=== PATIENT | male | born 1965 | race Caucasian/White ===

== ENCOUNTER 2016-05-09 17:27 | Emergency (ER) | payer BC ==
[~2016-05-09] VITALS: Ht 182.9 cm; Wt 138.5 kg
[~2016-05-09 17:27] MED LIST: CETI10TA84 PO; INDO-24 PO; LISI40TA PO; PRLSR20 PO
[2016-05-09 17:53] VITALS: TEMP 36.7; Ht 182.9 cm; Wt 138.5 kg
--- NOTE | 2016-05-09 18:04 | EMERGENCY ROOM VISIT NOTE ---
History First contact with patient: 17:56 Chief Complaint: KNEEPAIN Stated Complaint: SWELLING TO RT KNEE History of Present Illness The patient is a 50 year old male who presents to the Emergency Room with complaints of "swelling to right knee". The patient states that on Friday evening he was on the sidewalk in [place], and accidentally tripped landing on both of his knees. He also scraped his left hand. He notes that since then the right knee has persisted with swelling and pain. He is taken Tylenol and indomethacin with some relief. He feels the pain is quite low at this time but is concerned secondary to the swelling. He has tried ice but continues to swell. He denies any loss of consciousness, striking his head, fevers, chills. He believes his tetanus up-to-date. He does not want any tetanus update at this time. Review of Systems A complete 6-point Review of Systems was discussed with the patient, with pertinent positives and negatives listed in the History of Present Illness. All remaining Review of Systems questions can be considered negative unless otherwise specified. Past Medical/Surgical History High blood pressure, ulcers. Family History Diabetes, high blood pressure, cancer, kidney disease or stones. Social History Smoking Status: Never Smoker Social History: Patient is currently employed, he denies tobacco use and admits to alcohol use. Current/Historical Medications Scheduled Indomethacin (Indocin), 50 MG PO TID Lisinopril (Zestril), 40 MG PO DAILY Omeprazole (Prilosec), 20 MG PO DAILY Allergies Coded Allergies: Penicillins (Unverified Allergy, Unknown, UNKNOWN, 05/09/16) Uncoded Allergies: ENVIROMENT (Allergy, Intermediate, congestion, 02/17/14) Physical Exam Vital Signs Date Time Temp Pulse Resp B/P Pulse Ox O2 Delivery O2 Flow Rate FiO2 05/09/16 19:35 88 22 148/104 95 05/09/16 17:53 36.7 100 18 126/82 96 Room Air Physical Exam VITAL SIGNS - Vital signs and nursing notes were reviewed. Patient is afebrile , normotensive, saturating well on room air 96%. GENERAL -50-year-old male appearing his stated age who is in no acute distress. Communicates well with provider and answers questions appropriately. SKIN - Without rashes. No petechial rashes. There are well healing scratches on the left dorsal hand. No evidence of infection. EXTREMITIES - No clubbing or peripheral cyanosis. No pretibial edema present. Vascularly intact in the right lower extremity. There is tenderness to palpation overlying the anterior knee. No appreciable laxity. +5/5 strength noted in UE/LE bilaterally. NEUROLOGIC - Sensory intact to light touch throughout. Medical Decision & Procedures ER Provider Diagnostic Interpretation: RIGHT KNEE 3 VIEWS CLINICAL HISTORY: Right knee pain status post trauma COMPARISON: None. DISCUSSION: No acute fractures are visualized. There is a suprapatellar joint effusion. There is a tiny superior dorsal patellar spur. There is no significant joint space narrowing. IMPRESSION: 1. Moderate suprapatellar joint effusion 2. No acute fractures identified on conventional radiographic imaging Electronically signed by: Jose Carlos Aguirre M.D. 05/09/2016 6:41 PM Dictated Date/Time: 05/09/2016 6:40 PM Medical Decision Patient was seen and evaluated as above. After obtaining a thorough history and physical examination radiographs were obtained of the right knee. Results as above. The patient appears to have a traumatic moderate suprapatellar knee effusion. The knee was not erythematous, or warm to the touch. I suspect this is likely secondary to ligamentous injury. The patient is to be fitted with a knee immobilizer and crutches, however he did decline these noting that he is off work and will use his crutches at home and will rest the leg until he follows up. He is to follow up with his family doctor and orthopedic group regarding today's visit. He was educated upon management of the knee. He was educated upon worrisome symptoms in which to return, had questions answered prior to discharge and was discharged home in good condition. In the evaluation and treatment of this patient, the following differential diagnoses were considered: Patellar Fracture, Tibial Plateau Fracture, Distal Femur Fracture, ACL Injury, PCL Injury, Collateral Ligament Injury, Pes Anserine Bursitis, Maisonneuve Fracture. Impression Primary Impression: Knee pain Departure Information Dispostion Home / Self-Care Condition GOOD Referrals No Doctor, Assigned (PCP) Davie Zimmer M.D. Patient Instructions My [facility] Additional Instructions You have been treated in the Emergency Department for Knee Pain. For pain control, you can use the following [id number] medicines (if >12 yo): - Regular strength (325mg/tab) Tylenol (acetaminophen) 2 tabs every 4-6 hours as needed. Do not exceed 12 tablets in a 24 hour period. Avoid taking more than 4 grams (4000 mg) of Tylenol per day. This includes any other sources of acetaminophen you may take on a regular basis. - Regular strength (200 mg/tab) Advil (ibuprofen) 1-2 tabs every 4-6 hours as needed. Do not exceed a dose of 3200 mg per day. (DO NOT TAKE WITH OTHER NSAIDS LIKE MELOXICAM, INDOMETHACIN, ETC. If this is a recent injury (<24 hrs), ice can be applied to the area of pain for the first 3 days to help decrease pain and inflammation. Ice massages can be performed by freezing water in a paper cup, peeling back the cup to expose the ice and then massaging over the affected area. You have been provided the number for an Orthopaedic Surgeon. You should call this number as soon as possible to establish a follow-up visit from today's Emergency Department visit. Keep the knee brace in place until cleared by Orthopedics. Use the crutches you have been provided to keep ALL weight off of the knee until weight bearing is tolerable. Return to the Emergency Department if your current symptoms worsen despite treatment course outlined above. Please return to the emergency department with any new/concerning symptoms. Problem Qualifiers Primary Impression: Knee pain Laterality: right Chronicity: acute Qualified Codes: M25.561 - Pain in right knee
--- NOTE | 2016-05-09 18:42 | DIAGNOSTIC IMAGING REPORT ---
RIGHT KNEE 3 VIEWS CLINICAL HISTORY: Right knee pain status post trauma COMPARISON: None. DISCUSSION: No acute fractures are visualized. There is a suprapatellar joint effusion. There is a tiny superior dorsal patellar spur. There is no significant joint space narrowing. IMPRESSION: 1. Moderate suprapatellar joint effusion 2. No acute fractures identified on conventional radiographic imaging Electronically signed by: Jose Carlos Aguirre M.D. 05/09/2016 6:41 PM Dictated Date/Time: 05/09/2016 6:40 PM
[2016-05-09 19:35] VITALS: BP 148/104; PULSE 88; O2SAT 95
== END 2016-05-09 19:35 | disposition home or self-care (01) ==
LOC: C.EDB 17:30 → C.EDD 19:35
DX: M25.561 Pain in right knee (principal); M25.569 Pain in unspecified knee; W10.1XXA Fall (on)(from) sidewalk curb, initial encounter; I10 Essential (primary) hypertension; Z83.3 Family history of diabetes mellitus; Z82.49 Family history of ischemic heart disease and other diseases of the circulatory system

== ENCOUNTER → 2016-05-13 | Outpatient (CLI) | payer BC ==
[~2016-05-13] MED LIST changes: -CETI10TA84 PO
[2016-05-13 18:51] LABS: BLOOD UREA NITROGEN 11 mg/dl (7-18); BUN/CREATININE RATIO 10.5 (10-20); CARBON DIOXIDE 28 mmol/L (21-32); CHLORIDE 100 mmol/L (98-107); CHOLESTEROL 187 mg/dl (0-200); GLUCOSE 104 mg/dl (70-99); POTASSIUM 4.6 mmol/L (3.5-5.1); SODIUM 136 mmol/L (136-145); TRIGLYCERIDES 242 mg/dl (0-150); VERY LOW DENSITY LIPOPROT CALC 48 mg/dl
[2016-05-13 18:54] LABS: CHOLESTEROL/HDL RATIO 4.8; HDL CHOLESTEROL 39 mg/dl; LDL CHOLESTEROL CALCULATED 100 mg/dl
[2016-05-14 06:01] LABS: ESTIMATED AVERAGE GLUCOSE 123 mg/dl; HA1C FLAG Normal (Normal)
== END | disposition home or self-care (01) ==
LOC: C.LABBFT 13:59
PROVIDERS: ATTEND Nurse Practitioner
DX: E78.00 Pure hypercholesterolemia, unspecified (principal); R73.01 Impaired fasting glucose; I10 Essential (primary) hypertension

== ENCOUNTER → 2016-05-13 | Outpatient (CLI) | payer BC ==
--- NOTE | 2016-05-13 15:14 | DIAGNOSTIC IMAGING REPORT ---
LEFT CLAVICLE CLINICAL HISTORY: R22.1 Neck [id number] trauma. Pain. COMPARISON: None. DISCUSSION: Deformity midshaft left clavicle the bulk of which appears to be secondary to old trauma. Subtle linear lucency traversing the mid clavicle which may indicate hepatomegaly injury moderate degenerative change left acromioclavicular joint. There is no evidence for soft tissue swelling. IMPRESSION: Probable nondisplaced fracture of a previously healed fracture midshaft left clavicle Electronically signed by: Kevin Hahn M.D. 05/13/2016 3:12 PM Dictated Date/Time: 05/13/2016 3:11 PM
== END | disposition home or self-care (01) ==
LOC: C.RAD1850 14:33
PROVIDERS: ATTEND Nurse Practitioner
DX: R22.1 Localized swelling, mass and lump, neck (principal)

== ENCOUNTER → 2016-05-28 | Outpatient (CLI) | payer BC ==
--- NOTE | 2016-05-28 11:06 | DIAGNOSTIC IMAGING REPORT ---
LEFT CLAVICLE COMPLETE CLINICAL HISTORY: Left clavicular pain and swelling COMPARISON: 05/13/2016 DISCUSSION: 3 views left clavicle are provided for interpretation. There is a healed left clavicular fracture, unchanged in alignment when compared the prior study. IMPRESSION: Old left clavicular deformity. A definite refracture is not identified as was queried on the most recent study. Electronically signed by: Jose Carlos Aguirre M.D. 05/28/2016 11:05 AM Dictated Date/Time: 05/28/2016 11:03 AM
== END | disposition home or self-care (01) ==
LOC: C.RDSM 10:46
PROVIDERS: ATTEND Family Medicine
DX: S42.002A Fracture of unspecified part of left clavicle, initial encounter for closed fracture (principal); X58.XXXA Exposure to other specified factors, initial encounter; R22.1 Localized swelling, mass and lump, neck

== ENCOUNTER 2016-06-08 12:10 | Emergency (ER) | payer BC ==
[~2016-06-08] VITALS: Ht 182.9 cm; Wt 140.0 kg
[2016-06-08 12:13] VITALS: TEMP 36.9; Ht 182.9 cm; Wt 140.0 kg
[2016-06-08] MEDS ORDERED: OPTIRAY 320 IV PRN (13:00)
--- NOTE | 2016-06-08 13:20 | DIAGNOSTIC IMAGING REPORT ---
CT SOFT TISSUE NECK WITH CT DOSE: 758.04 mGy.cm CLINICAL HISTORY: L neck edema HISTORY OF TRAUMA TECHNIQUE: Helical images were acquired during intravenous administration of 93 cc of Optiray 320. COMPARISON STUDY: None. FINDINGS: The visualized portions of the lung apices are unremarkable. No thyroid masses are visualized. No salivary gland masses are visualized. There is scattered lymph nodes within the neck, likely reactive. No necrotic lymph nodes are visualized. There are no fluid collections suspicious for abscess. There is no evidence of airway compromise. No mucosal space masses are visualized. There is piriform sinus asymmetry. This is of questionable clinical significance. There is extensive left neck edema with infiltration of the fat medially posterior to the left sternocleidomastoid. Edema extends to the retroclavicular region. There are no walled off collections to indicate an abscess. Given history of trauma, the findings may represent the sequela of hemorrhage which has dissected into the soft tissues. A well-defined hematoma is not visualized. No acute fractures are visualized. IMPRESSION: 1. Extensive left neck edema. The findings are nonspecific but may represent the sequela of posttraumatic hemorrhage which has dissected the soft tissues. A well-defined hematoma is not visualized 2. No acute fractures identified Electronically signed by: Jose Carlos Aguirre M.D. 06/08/2016 1:18 PM Dictated Date/Time: 06/08/2016 1:09 PM
[2016-06-08 14:00] VITALS: BP 155/78; PULSE 97; O2SAT 98
--- NOTE | 2016-06-08 17:25 | EMERGENCY ROOM VISIT NOTE ---
History First contact with patient: 12:29 Chief Complaint: NECK PAIN Stated Complaint: NECK History of Present Illness The patient is a 50 year old white male who presents to the Emergency Room with complaints of swelling on his left neck that has been present intermittently for 6 weeks. He states he injured himself approximate 6 weeks ago. He had pain in his left neck and left clavicle. He had x-rays at that time suggested a possibility of new clavicle fracture in the area of an old injury. He has been having recurrent left neck swelling since then. He states he will ice it and elevate it and it goes down during the day, but then returns and he wakes in the morning. He is using a CPAP that was recently administered by the sleep center. It is also about 6 weeks since he started the CPAP. The swelling causes him to have a stiff neck. He is unsure if he is sleeping on the neck in an unusual way. He is not sure why it swells overnight. He came here for more definitive answers. He denies any loss of motion of the shoulder or arm. He denies any chest pain or shortness of breath. No prior history of similar swelling. He denies any ear pain or jaw pain. Review of Systems REVIEW OF SYSTEM: HEENT: No dizziness, visual problems, hearing loss, or tinnitus. There is no difficulty swallowing and no oral lesions are present. LYMPH: No adenopathy. PULMONARY: No cough, shortness of breath, sputum production or hemoptysis. CARDIOVASCULAR: No chest pain, palpitations, shortness of breath or peripheral edema. GASTROINTESTINAL: No diarrhea, constipation, nausea, vomiting, or abdominal pain. GENITOURINARY: No dysuria, frequency, urgency or nocturia. NEUROLOGIC: No weakness, muscle tenderness, epilepsy or history of neurological problems. MUSCULOSKELETAL: No history of joint tenderness/swelling. No history of arthritis or arthralgias. SKIN: No rashes or lesions. PSYCHIATRIC: No history of depression or mental illness. ENDOCRINE: No history of diabetes, thyroid disorders, or abnormal hair growth. Past Medical/Surgical History Previous surgeries: None Medical history: Significant for diabetes, hypertension, GERD, and sleep apnea Family History Significant for diabetes, heart disease, hypertension, and cancer. Parents are living. Social History Smoking Status: Never Smoker Smokeless Tobacco Use: No Alcohol Use: occasionally Drug Use: none Marital Status: single Housing Status: lives alone Occupation Status: unemployed Current/Historical Medications Scheduled Indomethacin (Indocin), 50 MG PO TID Lisinopril (Zestril), 40 MG PO DAILY Omeprazole (Prilosec), 20 MG PO DAILY Allergies Coded Allergies: Penicillins (Unverified Allergy, Unknown, UNKNOWN, 06/08/16) Uncoded Allergies: ENVIROMENT (Allergy, Intermediate, congestion, 02/17/14) Physical Exam Vital Signs Date Time Temp Pulse Resp B/P Pulse Ox O2 Delivery O2 Flow Rate FiO2 06/08/16 14:00 97 18 155/78 98 06/08/16 12:13 36.9 120 18 161/89 96 Room Air Pain Rating (0-10): 1.0 Physical Exam Gen.: Well-developed, well-nourished, middle-aged white male, in no acute distress. Sitting on a bed. Alert and oriented. Skin:Warm and dry with good turgor. No rashes or lesions. No ecchymosis or erythema. Significant visible swelling present over the left neck. It is in the area of the sternocleidomastoid and scalene musculature. It is quite large and causes visible deformation of the neck contour. The patient is not diaphoretic. No abrasions. Heart: Heart RRR. No MGR. Lungs: Lungs are clear to auscultation. No crackles rhonchi or wheezing. Good air movement. The patient is able to take a deep breath. Musculoskeletal: Patient has full range of motion of his neck for rotation. He does complain of some stiffness in the left side when tilting to the right or looking to the right. Full range of motion of the left shoulder. No pain with palpation over the left clavicle. No pain over the sternoclavicular joint. No pain with palpation over the trapezius. He is able to shrug his shoulder. Neurologic: Gross sensation is intact across the left chest and left arm by soft touch. Peripheral pulses are 2+. Medical Decision & Procedures ER Provider Diagnostic Interpretation: CT scan imaging of the soft tissues of the neck with IV contrast was obtained. This was read by radiology as 1. Extensive left neck edema. The findings are nonspecific but may represent the sequela of posttraumatic hemorrhage which has dissected the soft tissues. A well-defined hematoma is not visualized 2. No acute fractures identified ED Course Patient was educated regarding today's findings. Conservative care measures were discussed. CT scan of the soft tissue of the neck was obtained. Patient was reassured that there is nothing involving his airway or the vasculature of the neck. There is no mass, tumor, or abscess. The swelling will likely have to resolve on its own. He may ice, elevate, and use oral anti-inflammatories. He may be receiving some friction from his CPAP mask. He will follow up with his PCP and discuss a fit check with the sleep lab. Return to the ED for any acute changes. Medical Decision Possibility of abscess, mass, tumor, subcutaneous emphysema, and muscle deformation were considered. Impression Primary Impression: Neck pain on left side Additional Impression: left neck edema Departure Information Dispostion Home / Self-Care Condition FAIR Forms WORK / SCHOOL INSTRUCTIONS, HOME CARE DOCUMENTATION FORM, MOTRIN USE, IMPORTANT VISIT INFORMATION Patient Instructions My [facility] Additional Instructions Continue to ice the area intermittently to reduce swelling Ibuprofen 600 mg every 6 hours with food Follow-up with your PCP on Friday as scheduled Discuss your BiPAP machine with a sleep center, as it may be too tight and contributing to the edema Problem Qualifiers
== END 2016-06-08 14:01 | disposition home or self-care (01) ==
LOC: C.EDB 12:12 → C.EDD 14:01
DX: M54.2 Cervicalgia (principal); R60.9 Edema, unspecified; E11.9 Type 2 diabetes mellitus without complications; I10 Essential (primary) hypertension; K21.9 Gastro-esophageal reflux disease without esophagitis; G47.30 Sleep apnea, unspecified; Z83.3 Family history of diabetes mellitus; Z82.49 Family history of ischemic heart disease and other diseases of the circulatory system

== ENCOUNTER 2016-08-16 16:25 | Emergency (ER) | payer BC ==
[~2016-08-16] VITALS: Ht 185.4 cm; Wt 140.7 kg
[2016-08-16 16:31] VITALS: TEMP 36.8; Ht 185.4 cm; Wt 140.7 kg
[2016-08-16] MEDS ORDERED: INDO-24 PO (17:19)
[2016-08-16] MEDS ORDERED: OPTIRAY 320 IV PRN (17:30)
[2016-08-16 17:37] LABS: BASO % 0.5 %; BASO ABS # 0.04 K/uL (0-0.2); COMPLETE YES; EOS % 2.6 %; HEMATOCRIT 44.6 % (42-52); IG% 0.6 %; LYMPH % 27.5 %; LYMPH ABS # 2.22 K/uL (1.2-3.4); MEAN CELL VOLUME 90.8 fL (80-100); MEAN CORPUSCULAR HEMOGLOBIN 32.4 pg (25-34); MEAN CORPUSCULAR HGB CONC 35.7 g/dl (32-36); MEAN PLATELET VOLUME 10.2 fL (7.4-10.4); NEUT % 60.8 %; PLATELET COUNT 229 K/uL (130-400); RED BLOOD COUNT 4.91 M/uL (4.7-6.1); WHITE BLOOD COUNT 8.08 K/uL (4.8-10.8)
[2016-08-16 17:46] LABS: ISTAT HEMOGLOBIN 15.6 g/dl (14.0-18.0); ISTAT IONIZED CALCIUM 1.19 mmol/l (1.12-1.32)
[2016-08-16 17:49] LABS: PROTHROMBIN TIME (PATIENT) 10.3 SECONDS (9.0-12.0)
[2016-08-16 18:10] LABS: ALT/SGPT 32 U/L (12-78); AST/SGOT 18 U/L (15-37); BLOOD UREA NITROGEN 14 mg/dl (7-18); CALCIUM 8.6 mg/dl (8.5-10.1); CARBON DIOXIDE 25 mmol/L (21-32); CHLORIDE 105 mmol/L (98-107); GLUCOSE 157 mg/dl (70-99); SODIUM 139 mmol/L (136-145)
[2016-08-16 18:16] LABS: ALKALINE PHOSPHATASE 96 U/L (45-117); CKMB/CK RATIO 0.8 (0-3.0)
--- NOTE | 2016-08-16 18:34 | DIAGNOSTIC IMAGING REPORT ---
CHEST ONE VIEW PORTABLE HISTORY: Generalized abdominal pain. COMPARISON: Chest 02/16/2012. FINDINGS: The heart is normal in size. No pleural effusions. No pneumothorax. Left basilar linear densities consistent with subsegmental atelectasis. The lungs are otherwise clear. IMPRESSION: No acute process. Electronically signed by: Kavin Rowell M.D. 08/16/2016 6:33 PM Dictated Date/Time: 08/16/2016 6:32 PM
[2016-08-16 18:48] LABS: URINE APPEARANCE CLEAR (CLEAR); URINE BILIRUBIN NEG (NEG); URINE COLOR YELLOW; URINE NITRITE NEG (NEG); URINE SPECIFIC GRAVITY 1.026 (1.000-1.030); UROBILINOGEN NEG (NEG)
[2016-08-16 18:49] LABS: MANUAL MICROSCOPIC REQUIRED? NO; REVIEW REQ? NO
--- NOTE | 2016-08-16 20:39 | DIAGNOSTIC IMAGING REPORT ---
CT neck with intravenous contrast. HISTORY: sent by PCP, neck and left upper chest swelling TECHNIQUE: Multiaxial CT images of the neck were performed following the use of intravenous contrast. COMPARISON STUDY: Neck CT 06/08/2016. FINDINGS: The visualized brain parenchyma and orbits are unremarkable. The internal jugular veins and carotid arteries are widely patent. Left neck/supraclavicular edema has improved. Mild subcutaneous edema within the anterior neck has slightly progressed. There is also retropharyngeal fluid which has also progressed. This measures a maximal thickness of 1.2 cm at the C2-C4 level. This results in mild mass effect along the posterior pharynx. However, this fluid does not appear to be loculated at this time. The epiglottis is normal in thickness. The thyroid gland enhances normally. No acute fractures within the visualized osseous structures. Multiple subcentimeter left cervical and left submandibular lymph nodes are again noted. The parotid and submandibular glands are symmetric. The paranasal sinuses and mastoid air cells are clear. Multiple punctate calcifications within the bilateral palatine tonsils. IMPRESSION: 1. Interval improvement in the left neck/supraclavicular edema. 2. However, there has been progression of the retropharyngeal fluid most pronounced from the C2-C4 level which measures up to 1.2 cm in thickness and results in mild mass effect along the posterior pharynx. There is no peripheral enhancement at this time. However, this could be due to a developing infectious process. ENT consultation is recommended for further evaluation. Electronically signed by: Kavin Rowell M.D. 08/16/2016 8:37 PM Dictated Date/Time: 08/16/2016 8:29 PM
--- NOTE | 2016-08-16 20:47 | DIAGNOSTIC IMAGING REPORT ---
CHEST CT WITH CONTRAST CT DOSE: HISTORY: sent by PCP, neck and left upper chest swelling TECHNIQUE: Multiaxial CT images of the chest were performed following the intravenous administration of contrast. COMPARISON: Chest 08/16/2016. FINDINGS: There is midline anterior chest wall subcutaneous edema and mild skin thickening. No loculated fluid collections to suggest an abscess. Minimal fat stranding surrounding the proximal to mid esophagus. Old, healed left-sided rib fractures. No destructive process within the visualized osseous structures. Normal caliber thoracic aorta. The main pulmonary arteries are patent. No pleural or pericardial effusions. No mediastinal or hilar lymphadenopathy. The brachiocephalic veins and SVC appear patent. No soft tissue gas identified. The central airways are patent. No pneumothorax. A 3 mm subpleural nodule within the left upper lobe on image 64. Linear densities at the lung bases favor subsegmental atelectasis. IMPRESSION: 1. Midline anterior chest wall subcutaneous edema and mild skin thickening. This favors a cellulitis. 2. Minimal fat stranding surrounding the proximal to mid esophagus. This could be due to extension from the abnormality within the neck and raises the possibility of a developing mediastinitis. Clinical correlation recommended. Electronically signed by: Kavin Rowell M.D. 08/16/2016 8:45 PM Dictated Date/Time: 08/16/2016 8:37 PM
--- NOTE | 2016-08-16 20:54 | DIAGNOSTIC IMAGING REPORT ---
ABDOMEN AND PELVIS CT WITH IV AND ORAL CONTRAST CT DOSE: 4282.71 mGy.cm HISTORY: sent by PCP, neck and left upper chest swelling TECHNIQUE: Multiaxial CT images of the abdomen and pelvis were performed following the use of intravenous and oral contrast. COMPARISON STUDY: None. FINDINGS: No pneumoperitoneum. No pneumatosis. No suspicious lytic or blastic osseous lesions. Old minimal superior endplate compression deformity is at T11 and T12. The liver, gallbladder, spleen, adrenal glands, and left kidney are unremarkable. There is a 4 cm cyst within the right kidney. No hydronephrosis. No retroperitoneal lymphadenopathy. Mild perinephric and retroperitoneal edema. Trace fluid within the right paracolic gutter. As also mild extraperitoneal edema and presacral edema seen within the pelvis. There is moderate bladder wall thickening with surrounding fat stranding. The pancreas enhances normally. Minimal edema adjacent to the uncinate process of the pancreas. Colonic diverticulosis. No bowel wall thickening or obstruction. Normal appendix. IMPRESSION: 1. Nonspecific retroperitoneal/extraperitoneal edema and trace ascites within the right paracolic gutter. 2. Moderate bladder wall thickening. This may represent a cystitis. Recommend correlation with urinalysis. 3. Minimal edema adjacent to the uncinate process of the pancreas is likely due to the nonspecific edema. Recommend correlation with pancreatic enzymes to exclude the less likely possibility of acute pancreatitis. The pancreas enhances normally. 4. Additional findings as described above. Electronically signed by: Kavin Rowell M.D. 08/16/2016 8:53 PM Dictated Date/Time: 08/16/2016 8:45 PM
[2016-08-16] MEDS ORDERED: CEFTRIAXONE SOD INJ 1 GM ADDVIAL IV STA (21:11)
[2016-08-16] MEDS ORDERED: SODIUM CHLORIDE 0.9% 1000ML 1,000 ML IV STA ×2 (21:11)
[2016-08-16] MEDS ORDERED: METRONIDAZOLE 500MG / 100ML NSS IV STA (21:11)
[2016-08-16] MEDS ORDERED: FAMOTIDINE 20MG/102 ML D5W IV STA (21:11)
[2016-08-16] MEDS ORDERED: PANTOprazole INJ 40 MG in SYRINGE 0 ML IV ONE (21:15)
--- NOTE | 2016-08-16 23:31 | EMERGENCY ROOM VISIT NOTE ---
History Report prepared by Zev: Maya Connors Under the Supervision of: Dr. Etienne Denton D.O. First contact with patient: 17:04 Chief Complaint: REFERRED BY DOCTOR Stated Complaint: SWELLING IN NECK/CHEST;DOC REFERRED History of Present Illness The patient is a 50 year old male who presents to the Emergency Room with complaints of persistent neck swelling for the past 4 months. The swelling started when he broke his collar bone 4 months ago. His fracture did not require surgery. He is getting the swelling in his neck at least every week. It worsens when he drinks alcohol. He was sent to the ED by his PCP because his insurance would not cover a CT scan. He reports SOB and chest pain. He denies any leg swelling or lumps in his mouth. He has a history of hypertension and sleep apnea. He denies any history of cancer. He admits to using snuff. He admits to daily alcohol use. Source of History: patient Onset: 4 months Position: neck Quality: other (swelling) Timing: other (persistent) Modifying Factors (Worsening): other (alcohol) Associated Symptoms: + chest pain, + SOB Note: Pt denies leg swelling, lumps in the mouth. Review of Systems See HPI for pertinent positives & negatives. A total of 10 systems reviewed and were otherwise negative. Past Medical & Surgical Medical Problems: (1) Hypertension Family History Cancer Diabetes mellitus Hypertension Kidney disease Kidney stones Social History Smoking Status: Never Smoker Alcohol Use: occasionally Drug Use: none Marital Status: single Housing Status: lives alone Occupation Status: unemployed Current/Historical Medications Scheduled Indomethacin (Indocin), 50 MG PO QAM Lisinopril (Zestril), 40 MG PO DAILY Omeprazole (Prilosec), 20 MG PO DAILY Allergies Coded Allergies: Penicillins (Unverified Allergy, Unknown, UNKNOWN, 08/16/16) Uncoded Allergies: ENVIROMENT (Allergy, Intermediate, congestion, 02/17/14) Physical Exam Vital Signs Date Time Temp Pulse Resp B/P (MAP) Pulse Ox O2 Delivery O2 Flow Rate FiO2 08/16/16 20:02 97 18 153/95 97 Room Air 08/16/16 18:06 95 20 133/75 94 08/16/16 17:31 97 08/16/16 16:31 36.8 99 20 158/93 97 Room Air Physical Exam GENERAL: Patient is awake, alert, and in no acute distress. Patient is resting comfortably and showing no signs of anxiety EYES: The conjunctivae are clear. The pupils are round and reactive. EARS, NOSE, MOUTH AND THROAT: The nose is without any evidence of any deformity. Mucous membranes are moist tongue is midline NECK: The neck has what appears to be soft tissue swelling to the anterior and left side of the neck, ROM appears intact. RESPIRATORY: Normal respiratory effort is noted there is no evidence of wheezing rhonchi or rales CARDIOVASCULAR: Regular rate and rhythm noted there no murmurs rubs or gallops normal S1 normal S2 GASTROINTESTINAL: The abdomen is soft. Bowel sounds are present in all quadrants. Abdomen is nontender MUSCULOSKELETAL/EXTREMITIES: There is no evidence of gross deformity full range of motion is noted in the hips and shoulders SKIN: There is no obvious evidence of any rash. There are no petechiae, pallor or cyanosis noted. NEUROLOGIC: Patient is awake alert and oriented x3 Medical Decision & Procedures ER Provider Diagnostic Interpretation: X-ray results as stated below per interpretation by me and the radiologist. Radiology results as stated below per my review and radiologist interpretation: CHEST ONE VIEW PORTABLE HISTORY: Generalized abdominal pain. COMPARISON: Chest 02/16/2012. FINDINGS: The heart is normal in size. No pleural effusions. No pneumothorax. Left basilar linear densities consistent with subsegmental atelectasis. The lungs are otherwise clear. IMPRESSION: No acute process. Electronically signed by: Kavin Rowell M.D. 08/16/2016 6:33 PM Dictated Date/Time: 08/16/2016 6:[address] WITH CONTRAST CT DOSE: HISTORY: sent by PCP, neck and left upper chest swelling TECHNIQUE: Multiaxial CT images of the chest were performed following the intravenous administration of contrast. COMPARISON: Chest 08/16/2016. FINDINGS: There is midline anterior chest wall subcutaneous edema and mild skin thickening. No loculated fluid collections to suggest an abscess. Minimal fat stranding surrounding the proximal to mid esophagus. Old, healed left-sided rib fractures. No destructive process within the visualized osseous structures. Normal caliber thoracic aorta. The main pulmonary arteries are patent. No pleural or pericardial effusions. No mediastinal or hilar lymphadenopathy. The brachiocephalic veins and SVC appear patent. No soft tissue gas identified. The central airways are patent. No pneumothorax. A 3 mm subpleural nodule within the left upper lobe on image 64. Linear densities at the lung bases favor subsegmental atelectasis. IMPRESSION: 1. Midline anterior chest wall subcutaneous edema and mild skin thickening. This favors a cellulitis. 2. Minimal fat stranding surrounding the proximal to mid esophagus. This could be due to extension from the abnormality within the neck and raises the possibility of a developing mediastinitis. Clinical correlation recommended. Electronically signed by: Kavin Rowell M.D. 08/16/2016 8:45 PM Dictated Date/Time: 08/16/2016 8:37 PM ABDOMEN AND PELVIS CT WITH IV AND ORAL CONTRAST CT DOSE: 4282.71 mGy.cm HISTORY: sent by PCP, neck and left upper chest swelling TECHNIQUE: Multiaxial CT images of the abdomen and pelvis were performed following the use of intravenous and oral contrast. COMPARISON STUDY: None. FINDINGS: No pneumoperitoneum. No pneumatosis. No suspicious lytic or blastic osseous lesions. Old minimal superior endplate compression deformity is at T11 and T12. The liver, gallbladder, spleen, adrenal glands, and left kidney are unremarkable. There is a 4 cm cyst within the right kidney. No hydronephrosis. No retroperitoneal lymphadenopathy. Mild perinephric and retroperitoneal edema. Trace fluid within the right paracolic gutter. As also mild extraperitoneal edema and presacral edema seen within the pelvis. There is moderate bladder wall thickening with surrounding fat stranding. The pancreas enhances normally. Minimal edema adjacent to the uncinate process of the pancreas. Colonic diverticulosis. No bowel wall thickening or obstruction. Normal appendix. IMPRESSION: 1. Nonspecific retroperitoneal/extraperitoneal edema and trace ascites within the right paracolic gutter. 2. Moderate bladder wall thickening. This may represent a cystitis. Recommend correlation with urinalysis. 3. Minimal edema adjacent to the uncinate process of the pancreas is likely due to the nonspecific edema. Recommend correlation with pancreatic enzymes to exclude the less likely possibility of acute pancreatitis. The pancreas enhances normally. 4. Additional findings as described above. Electronically signed by: Kavin Rowell M.D. 08/16/2016 8:53 PM Dictated Date/Time: 08/16/2016 8:[address] neck with intravenous contrast. HISTORY: sent by PCP, neck and left upper chest swelling TECHNIQUE: Multiaxial CT images of the neck were performed following the use of intravenous contrast. COMPARISON STUDY: Neck CT 06/08/2016. FINDINGS: The visualized brain parenchyma and orbits are unremarkable. The internal jugular veins and carotid arteries are widely patent. Left neck/supraclavicular edema has improved. Mild subcutaneous edema within the anterior neck has slightly progressed. There is also retropharyngeal fluid which has also progressed. This measures a maximal thickness of 1.2 cm at the C2-C4 level. This results in mild mass effect along the posterior pharynx. However, this fluid does not appear to be loculated at this time. The epiglottis is normal in thickness. The thyroid gland enhances normally. No acute fractures within the visualized osseous structures. Multiple subcentimeter left cervical and left submandibular lymph nodes are again noted. The parotid and submandibular glands are symmetric. The paranasal sinuses and mastoid air cells are clear. Multiple punctate calcifications within the bilateral palatine tonsils. IMPRESSION: 1. Interval improvement in the left neck/supraclavicular edema. 2. However, there has been progression of the retropharyngeal fluid most pronounced from the C2-C4 level which measures up to 1.2 cm in thickness and results in mild mass effect along the posterior pharynx. There is no peripheral enhancement at this time. However, this could be due to a developing infectious process. ENT consultation is recommended for further evaluation. Electronically signed by: Kavin Rowell M.D. 08/16/2016 8:37 PM Dictated Date/Time: 08/16/2016 8:29 PM Laboratory Results 08/16/16 17:26 Red Blood Count 4.91, Mean Corpuscular Volume 90.8, Mean Corpuscular Hemoglobin 32.4, Mean Corpuscular Hemoglobin Concent 35.7, Mean Platelet Volume 10.2, Neutrophils (%) (Auto) 60.8, Lymphocytes (%) (Auto) 27.5, Monocytes (%) (Auto) 8.0, Eosinophils (%) (Auto) 2.6, Basophils (%) (Auto) 0.5, Neutrophils # (Auto) 4.91, Lymphocytes # (Auto) 2.22, Monocytes # (Auto) 0.65, Eosinophils # (Auto) 0.21, Basophils # (Auto) 0.04 08/16/16 17:26 Test 08/16/16 17:26 08/16/16 17:34 08/16/16 18:35 White Blood Count 8.08 K/uL (4.8-10.8) Red Blood Count 4.91 M/uL (4.7-6.1) Hemoglobin 15.9 g/dL (14.0-18.0) Hematocrit 44.6 % (42-52) Mean Corpuscular Volume 90.8 fL (80-100) Mean Corpuscular Hemoglobin 32.4 pg (25-34) Mean Corpuscular Hemoglobin Concent 35.7 g/dl (32-36) Platelet Count 229 K/uL (130-400) Mean Platelet Volume 10.2 fL (7.4-10.4) Neutrophils (%) (Auto) 60.8 % Lymphocytes (%) (Auto) 27.5 % Monocytes (%) (Auto) 8.0 % Eosinophils (%) (Auto) 2.6 % Basophils (%) (Auto) 0.5 % Neutrophils # (Auto) 4.91 K/uL (1.4-6.5) Lymphocytes # (Auto) 2.22 K/uL (1.2-3.4) Monocytes # (Auto) 0.65 K/uL (0.11-0.59) Eosinophils # (Auto) 0.21 K/uL (0-0.5) Basophils # (Auto) 0.04 K/uL (0-0.2) RDW Standard Deviation 41.7 fL (36.4-46.3) RDW Coefficient of Variation 12.6 % (11.5-14.5) Immature Granulocyte % (Auto) 0.6 % Immature Granulocyte # (Auto) 0.05 K/uL (0.00-0.02) Prothrombin Time 10.3 SECONDS (9.0-12.0) Prothromb Time International Ratio 1.0 (0.9-1.1) Activated Partial Thromboplast Time 26.5 SECONDS (21.0-31.0) Partial Thromboplastin Ratio 1.0 Est Creatinine Clear Calc Drug Dose 119.7 ml/min Estimated GFR () 90.9 Estimated GFR (Non- 78.4 BUN/Creatinine Ratio 13.0 (10-20) Calcium Level 8.6 mg/dl (8.5-10.1) Total Bilirubin 1.0 mg/dl (0.2-1) Direct Bilirubin mg/dl (0-0.2) Aspartate Amino Transf (AST/SGOT) 18 U/L (15-37) Alanine Aminotransferase (ALT/SGPT) 32 U/L (12-78) Alkaline Phosphatase 96 U/L (45-117) Total Creatine Kinase 111 U/L (39-308) Creatine Kinase MB 0.9 ng/ml (0.5-3.6) Creatine Kinase MB Ratio 0.8 (0-3.0) Troponin I < 0.015 ng/ml (0-0.045) Total Protein 6.9 gm/dl (6.4-8.2) Albumin 3.4 gm/dl (3.4-5.0) Lipase 106 U/L (73-393) Thyroid Stimulating Hormone (TSH) 1.210 uIu/ml (0.300-4.500) Free Thyroxine 0.96 ng/dl (0.80-1.60) Bedside Hemoglobin 15.6 g/dl (14.0-18.0) Bedside Hematocrit 46 % (42-52) Bedside Sodium 137 mEq/L (135-144) Bedside Potassium 3.9 mEq/L (3.3-5.0) Bedside Chloride 101 mEq/L (101-112) Bedside Total CO2 25 mEq/l (24-31) Anion Gap 17.0 mmol/L (16-25) Bedside Blood Urea Nitrogen 16 mg/dl (7-18) Bedside Creatinine 1.0 mg/dl (0.6-1.3) Bedside Glucose (other) 159 mg/dl (70-99) Bedside Ionized Calcium (Brianna) 1.19 mmol/l (1.12-1.32) Urine Color YELLOW Urine Appearance CLEAR (CLEAR) Urine pH 5.0 (4.5-7.5) Urine Specific Haines 1.026 (1.000-1.030) Urine Protein NEG (NEG) Urine Glucose (UA) 3+ (NEG) Urine Ketones NEG (NEG) Urine Occult Blood NEG (NEG) Urine Nitrite NEG (NEG) Urine Bilirubin NEG (NEG) Urine Urobilinogen NEG (NEG) Urine Leukocyte Esterase NEG (NEG) Laboratory results per my review. Medications Administered Medications (Trade) Dose Ordered Sig/Korin Route Start Time Stop Time Status Last Admin Dose Admin Pantoprazole Sodium 40 mg/ Syringe 10 ml @ 5 mls/min NOW ONCE IV 08/16/16 21:15 08/16/16 21:16 DC 08/16/16 21:53 5 MLS/MIN Famotidine (Pepcid 20mg/100 ml) 20 mg ONE STAT IV 08/16/16 21:11 08/16/16 21:14 DC 08/16/16 21:53 20 MG Sodium Chloride 1,000 ml @ 999 mls/hr Q1H1M STAT IV 08/16/16 21:11 08/16/16 22:11 DC 08/16/16 21:54 999 MLS/HR Ceftriaxone Sodium (Rocephin Inj) 1 gm NOW STAT IV 08/16/16 21:11 08/16/16 21:14 DC 08/16/16 22:26 1 GM Metronidazole (Flagyl / Nss) 500 mg NOW STAT IV 08/16/16 21:11 08/16/16 21:14 DC 08/16/16 22:25 500 MG ECG Indication: chest pain, SOB/dyspnea Rate (beats per minute): 95 Rhythm: normal sinus Findings: no ectopy, other (no acute ST segment abnormality) Comparison ECG Date: 16-Feb-2012 Change: no significant change ED Course 1707: The patient was evaluated in room C5. A complete history and physical examination were performed. 2110: Metronidazole 500 mg IV, Rocephin Inj 1 gm IV, NSS 1000 ml @ 125 mls/hr IV , NSS 1000 ml @ 999 mls/hr IV, Famotidine 20 mg IV. 2114: Pantoprazole Sodium 40 mg/Syringe 10 ml @ 5 mls/min IV. 2135: I discussed the patient's case with Dr. Henriquez, cardiothoracic surgery [facility]. 2199: I discussed the patient's case with Dr. Gómez, [facility]. The patient has been accepted for transfer. 2209: Upon reevaluation, the patient is resting comfortably. I discussed results and treatment plan with him. He verbalizes agreement and understanding. The patient will be transferred to [facility]. Medical Decision Prior records/ancillary studies reviewed. Triage Nursing notes reviewed. The patient's history was concerning for respiratory difficulties. Differential diagnosis: Etiologies such as infections, reactive airway disease, pneumonia, pneumothorax , COPD, CHF, cardiac ischemia, pulmonary embolism, musculoskeletal, gastrointestinal, as well as others were entertained. Medication Reconciliation: I attest that I have personally reviewed the patient' s current medications list. The patient is a 50-year-old male who presented to the emergency department for an evaluation of swelling over the neck. The patient states that he's noticed swelling on the left side of his neck especially in the supraclavicular region for the last few weeks. He also has been describing chest discomfort which is a new symptom for him. His significant other noticed voice changes. The patient also has a history of daily alcohol use but has not had significant vomiting recently. The patient was found to have abnormalities on CAT scan which could be related to inflammation in the deep space of the neck as well as the mediastinum. The patient does not appear to have sepsis or mediastinitis clinically but this could be an indolent infection which has been worsening over the last few days. This reason he was treated with IV fluids IV antibiotics and IV proton pump inhibitors. We do not have a cardiothoracic surgeon available at our facility at this time so I discussed his case with the cardiothoracic surgeon at [facility]. I also discussed this patient with the hospitalist at [facility]. They've agreed to accept the patient in transfer for further management and disposition. I'm unsure if the patient requires further radiographic studies or possibly a mediastinoscopy.I discussed these possibilities with the patient. He was agreeable to transfer. Consults Time Called: 2125 Consulting Physician: Dr. Henriquez, cardiothoracic surgery [facility] Returned Call: 2135 I discussed the patient's case with him. He recommend the patient be transferred to their facility. Additional Consults: Time Called: 2139 Consulted Physician: Dr. Gómez, [facility] Returned Call: 2199 Additional Comments: I discussed the patient's case with him. The patient has been accepted for transfer. Impression Primary Impression: Mediastinitis Additional Impressions: Ascites Retropharyngeal abscess Edema Scribe Attestation The scribe's documentation has been prepared under my direction and personally reviewed by me in its entirety. I confirm that the note above accurately reflects all work, treatment, procedures, and medical decision making performed by me. Departure Information Dispostion Transfer Acute Care Facility Referrals Tracee Bain, C.R.N.P. (PCP) Patient Instructions [facility] Problem Qualifiers
[2016-08-17 00:22] VITALS: BP 136/101; PULSE 90; O2SAT 97
== END 2016-08-17 00:23 | disposition short-term general hospital (02) ==
LOC: C.EDB 16:27 → C.EDC 08-17 00:23
DX: J98.51 Mediastinitis (principal); R18.8 Other ascites; J39.0 Retropharyngeal and parapharyngeal abscess; R60.9 Edema, unspecified; I10 Essential (primary) hypertension; Z82.49 Family history of ischemic heart disease and other diseases of the circulatory system; Z83.3 Family history of diabetes mellitus

== ENCOUNTER → 2016-12-23 | Outpatient (CLI) | payer BC | END | disposition home or self-care (01) | LOC: C.LABBFT 12:24 | PROVIDERS: ATTEND Physician Assistant Medical | DX: R39.9 Unspecified symptoms and signs involving the genitourinary system (principal) ==

== ENCOUNTER → 2017-09-25 | Outpatient (CLI) | payer BC ==
[2017-09-25 12:30] LABS: HEMATOCRIT 45.3 % (42-52); HEMOGLOBIN 15.9 g/dL (14.0-18.0); MEAN CELL VOLUME 91.7 fL (80-100); MEAN CORPUSCULAR HEMOGLOBIN 32.2 pg (25-34); MEAN CORPUSCULAR HGB CONC 35.1 g/dl (32-36); MEAN PLATELET VOLUME 10.7 fL (7.4-10.4); PLATELET COUNT 222 K/uL (130-400); RED CELL DISTRIBUTION WIDTH CV 13.1 % (11.5-14.5); RED CELL DISTRIBUTION WIDTH SD 43.7 fL (36.4-46.3); WHITE BLOOD COUNT 7.43 K/uL (4.8-10.8)
[2017-09-25 12:48] LABS: ALKALINE PHOSPHATASE 93 U/L (45-117); ALT/SGPT 50 U/L (12-78); AST/SGOT 26 U/L (15-37); BLOOD UREA NITROGEN 12 mg/dl (7-18); CALCIUM 8.8 mg/dl (8.5-10.1); CARBON DIOXIDE 26 mmol/L (21-32); CHOLESTEROL 186 mg/dl (0-200); CREATININE 0.96 mg/dl (0.60-1.40); GLUCOSE 113 mg/dl (70-99); LDL CHOLESTEROL CALCULATED 95 mg/dl; POTASSIUM 4.7 mmol/L (3.5-5.1); SODIUM 137 mmol/L (136-145); TOTAL PROTEIN 8.1 gm/dl (6.4-8.2)
[2017-09-25 13:02] LABS: HEMOGLOBIN A1C 5.8 % (4.5-5.6)
== END | disposition home or self-care (01) ==
LOC: C.LABBFT 09:03
PROVIDERS: ATTEND Nurse Practitioner
DX: R73.01 Impaired fasting glucose (principal); I10 Essential (primary) hypertension; Z12.5 Encounter for screening for malignant neoplasm of prostate

== ENCOUNTER → 2017-10-01 | Outpatient (CLI) | payer BC ==
--- NOTE | 2017-10-01 09:57 | DIAGNOSTIC IMAGING REPORT ---
L KNEE 4 OR MORE CLINICAL HISTORY: LEFT KNEE PAIN pain COMPARISON: None. DISCUSSION: Mild degenerative change medial joint compartment left knee. Lateral joint compartment as well as patellofemoral joints are unremarkable. Bone mineralization is within normal limits. There is no erosive or blastic process. There is no evidence for soft tissue swelling. IMPRESSION: Mild degenerative change medial joint compartment left knee. Otherwise negative study. The above report was generated using voice recognition software. It may contain grammatical, syntax or spelling errors. Electronically signed by: Kevin Hahn M.D. 10/01/2017 9:55 AM Dictated Date/Time: 10/01/2017 9:54 AM
== END | disposition home or self-care (01) ==
LOC: C.RDSM 09:33
PROVIDERS: ATTEND Family Medicine
DX: M25.562 Pain in left knee (principal)

== ENCOUNTER → 2017-10-07 | Outpatient (CLI) | payer BC ==
--- NOTE | 2017-10-07 18:37 | DIAGNOSTIC IMAGING REPORT ---
LEFT KNEE MRI HISTORY: LEFT KNEE PAIN COMPARISON STUDY: Left knee 10/01/2017. TECHNIQUE: Multiplanar multisequence MRI of the left knee was performed according to standard department protocol without the use of contrast. FINDINGS: Menisci: There is an oblique tear extending to the undersurface of the body and posterior horn of the medial meniscus. The lateral meniscus demonstrates a small oblique tear anterior horn near the meniscal root. Ligaments: The ACL, PCL, and LCL are intact. Mild edema deep to the MCL is likely due to the meniscal injury. No definite evidence for MCL tear. Extensor mechanism: The quadriceps tendon and patellar ligament are intact. Articular cartilage and bone: Mild cartilage thinning within the medial femorotibial compartment. The remaining cartilage spaces are maintained. No fracture or dislocation within the knee. Joint effusion: None. Soft tissues: Tiny popliteal cyst. IMPRESSION: 1. An oblique tear involving the body and posterior horn of the medial meniscus. 2. Small oblique tear within the anterior horn of the lateral meniscus near the meniscal root. 3. Mild osteoarthritis within the medial compartment of the knee. Electronically signed by: Kavin Rowell M.D. 10/07/2017 6:36 PM Dictated Date/Time: 10/07/2017 6:31 PM
== END | disposition home or self-care (01) ==
LOC: C.MRI 17:27
PROVIDERS: ATTEND Family Medicine
DX: M25.562 Pain in left knee (principal)

== ENCOUNTER → 2017-10-20 | Outpatient (CLI) | payer BC ==
[~2017-10-20] MED LIST changes: +CLR10 PO; -INDO-24 PO; +IRBE-39 PO; -LISI40TA PO; +MULT-506 PO
[2017-10-20 16:15] LABS: BASO % 0.5 %; BASO ABS # 0.04 K/uL (0-0.2); EOS % 2.1 %; EOS ABS # 0.17 K/uL (0-0.5); HEMATOCRIT 42.8 % (42-52); HEMOGLOBIN 15.4 g/dL (14.0-18.0); IG# 0.04 K/uL (0.00-0.02); LYMPH % 30.5 %; LYMPH ABS # 2.47 K/uL (1.2-3.4); MEAN CELL VOLUME 89.7 fL (80-100); MEAN CORPUSCULAR HEMOGLOBIN 32.3 pg (25-34); MEAN PLATELET VOLUME 10.1 fL (7.4-10.4); MONO ABS # 0.73 K/uL (0.11-0.59); NEUT % 57.4 %; NEUT ABS # 4.64 K/uL (1.4-6.5); PLATELET COUNT 218 K/uL (130-400); RED CELL DISTRIBUTION WIDTH CV 12.6 % (11.5-14.5); RED CELL DISTRIBUTION WIDTH SD 41.2 fL (36.4-46.3); WHITE BLOOD COUNT 8.09 K/uL (4.8-10.8)
--- NOTE | 2017-10-20 16:27 | DIAGNOSTIC IMAGING REPORT ---
CHEST 2 VIEWS ROUTINE CLINICAL HISTORY: Preoperative evaluation. COMPARISON STUDY: Chest radiograph and chest CT August 16, 2016. FINDINGS: Lung volumes are mildly increased with flattening of the hemidiaphragms. Linear bibasilar opacities suggest atelectasis. No consolidation to suggest pneumonia. Pulmonary vascularity is normal. Cardiac size is at the upper limits of normal. IMPRESSION: 1. No acute cardiopulmonary findings. 2. Mild lung hyperexpansion. 3. Linear bibasilar opacities which favor atelectasis. Electronically signed by: Bean Elizabeth M.D. 10/20/2017 4:25 PM Dictated Date/Time: 10/20/2017 4:20 PM
== END | disposition home or self-care (01) ==
LOC: C.CPL 15:15
PROVIDERS: ATTEND Orthopaedic Surgery Sports Medicine
DX: Z01.810 Encounter for preprocedural cardiovascular examination (principal); Z01.812 Encounter for preprocedural laboratory examination

== ENCOUNTER 2022-03-14 12:04 | Inpatient (IN) ==
[2022-03-14] MEDS ORDERED: ASPIRIN CHEW 324 MG PO STA (12:14)
--- NOTE | 2022-03-14 12:24 | Emergency Department Note ---
Impression & Plan Acute non-ST elevation myocardial infarction (NSTEMI), New onset left bundle branch block (LBBB), Unstable angina ED Provider Note NAME: TERE MARKHAM AGE: 56 SEX: M : 1965 ARRIVES VIA: Walk-In INFORMANT: Patient, ED PROVIDER(S): Etienne Denton DO CHIEF COMPLAINT: Chest pain HPI: The patient is a 56-year-old male who presented to the emergency department for an evaluation of chest discomfort. The patient states he has been having ongoing chest pain over the course the last year. He states he notices it is worse when he exerts himself. He does notice some relief with rest. He denies having any nausea or vomiting. He has no difficulty breathing. He states over the last 2 weeks he is noticed more chest pain with exertion. He went to see his family doctor today. He was noted to have an abnormal EKG. He was sent to the emergency department for further evaluation at the request of cardiology. The patient states he has no history of coronary artery disease. He does have a family history of coronary artery disease. He denies having any fever or cough. He has had no changes to his medications. He uses a sleep apnea machine. He is unsure if this is causing some of his symptoms. ROS: See above HPI for pertinent positives & negatives. A total of 10 systems reviewed and were otherwise negative. PAST MEDICAL HISTORY: See Below PAST SURGICAL HISTORY: See Below FAMILY HISTORY: See Below SOCIAL HISTORY: See Below HOME MEDICATIONS: See Below ALLERGIES: See Below VITALS: See Below PHYSICAL EXAMINATION: GENERAL: Patient is awake alert in no acute distress patient is resting comf ortably and showing no signs of anxiety EYES: The conjunctivae are clear. The pupils are round and reactive. EARS, NOSE, MOUTH AND THROAT: The nose is without any evidence of any deformity. NECK: The neck is nontender and supple. RESPIRATORY: Normal respiratory effort is noted there is no evidence of wheezing rhonchi or rales CARDIOVASCULAR: Regular rate and rhythm noted there no murmurs rubs or gallops normal S1 normal S2. GASTROINTESTINAL: The abdomen is soft. Abdomen is nontender. MUSCULOSKELETAL/EXTREMITIES: There is no evidence of gross deformity full range of motion is noted in the hips and shoulders. SKIN: There is no obvious evidence of any rash. There are no petechiae, pallor or cyanosis noted. NEUROLOGIC: Patient is awake alert and oriented x3 MEDICAL DECISION MAKING: The patient is a 56-year-old male who presented to the emergency department for an evaluation of chest discomfort. The patient has been experiencing chest dis comfort with radiation to the arms over the course the last year. This is been intermittent and associated with exertion. The patient went to see his family doctor today and was sent to the emergency department for further evaluation because of a new change to his EKG. The patient was treated with aspirin in the emergency department. He was also started on a heparin drip. I discussed the patient's laboratory and radiographic studies with him. He was found to have an elevation in his troponin. I do feel this likely represents unstable angina. This reason I discussed his case with the on-call [facility] cardiology group as well as the on-call [facility] hospitalist. They have agreed to evaluate the patient for further management. Likely the patient will require evaluation by the geospatial systems integrator. The patient was agreeable this plan. Triage Nursing notes reviewed. Prior medical records reviewed Vital Signs: reviewed and remarkable for elevated blood pressure. Differential diagnosis: Cardiac ischemia, aortic dissection, pulmonary embolism, pneumothorax, pneumonia, pericarditis, myocarditis, esophageal rupture, GERD, cholecystitis, pancreatitis, musculoskeletal, as well as other pathologies. ER treatment provided: See below Diagnostics interpreted by me: ECG: EKG was obtained in the emergency department. My interpretation is sinus tachycardia at 102 bpm. Left bundle-branch block pattern was noted. There were no PVCs. This was compared to a tracing from February 04, 2019. The left bundle branch block pattern is new compared to the earlier tracing. The patient's EKG that was obtained in the office was reviewed. This appears to be consistent with sinus rhythm at 83 bpm. Left bundle branch block pattern was appreciated. In comparison similar to the tracing obtained in the emergency department. Cardiac Monitoring: An order was placed for continuous cardiac monitoring. The monitor shows a rate of 94 bpm with sinus rhythm. Laboratory studies: As stated above and show below. Imaging studies: See below. Radiographic imaging was reviewed by myself Consultation(s): I discussed this case with Dr. Juarez who is on for [facility] cardiology. I discussed this case with Dr. Hernandez who is on for the [facility] cardiology group ED COURSE: Procedures: none Critical Care: I have personally spent greater than 45 minutes of critical care time in the direct management of this patient. This includes bedside care, interpretation of diagnostic studies, and testing, discussion with consultants, patient, and family members, and other required patient management activities. This 45 minutes is in excess of all separately billable procedures. Past Med/Surg History Medical History Genitofemoral neuralgia of left side History of alcohol abuse Mediastinitis Prostatitis Surgical History History of arthroscopy of left knee History of bilateral inguinal hernia repair History of colonoscopy History of difficult intubation Left knee scope, LMM, debridement, loose body removal: 10/31/17: Grade 2 view, Glidescope#4, ETT 7.5 at [facility] History of umbilical hernia repair History of wisdom tooth extraction Status post correction of deviated nasal septum Family History Father Cancer Mother FH: kidney cancer Heart disease Family history of diabetes mellitus Other No family history of adverse response to anesthesia Social History Smoking Status: Current every day smoker Second Hand Exposure: No; Hx Alcohol Use: Yes Alcohol type: wine Hx Substance Use: Yes Preferred Language: Kenyan Communication Ability: Effective Visual Impairment: No Limitations Hearing Ability: Normal Low Pressure Boiler Tender Required: No Beliefs That Will Affect Care: None marital status: Single Current Living Situation: Significant Other Current Living Situation Comment: Lives with mom current occupational status: disabled Feels Safe at Home: Yes Assistive Devices: CPAP Allergies Allergies Allergy/AdvReac Type Severity Reaction Status Date / Time amoxicillin Allergy Mild rash, hives Verified 03/14/22 10:01 lisinopril Allergy Mild cough Verified 03/14/22 10:01 Penicillins Allergy Mild rash, hives Verified 03/14/22 10:01 Home Meds Home Medications Medication Instructions Recorded Confirmed cetirizine 10 mg tablet 10 mg PO QAM #30 tabs 09/04/18 03/14/22 mv-min-vit C-ascorb 1.7 mg PO DAILY 12/18/18 03/14/22 Il-Qqn-Hyi-herb #124 333 mg-1.7 mg chewable tablet (Airborne (ascorbate sodium)) allopurinol 100 mg tablet 100 mg PO DAILY 03/14/22 03/14/22 gemfibrozil 600 mg tablet 600 mg PO QPM 03/14/22 03/14/22 Previous Rx's Medication Instructions Recorded meloxicam 15 mg tablet 15 mg PO DAILY PRN swelling #90 03/15/20 tabs losartan 100 mg tablet 100 mg PO DAILY #90 tabs 03/12/21 omeprazole 20 mg capsule,delayed 20 mg PO DAILY #90 caps 07/03/21 release CPAP Machine #1 ea 08/06/21 metformin 500 mg tablet,extended 500 mg PO DAILY #90 tabs 03/05/22 release 24 hr Results & Data (ED) Vital Signs Vital Signs - 24 hr 03/14/22 12:05 03/14/22 13:30 03/14/22 13:13 Temperature 36.5 C Temperature Source Temporal Artery Scan Pulse Rate 95 H 89 Pulse Rate from SpO2 Sensor 87 Respiratory Rate 16 15 Respiratory Effort / Characteristics Non-Labored Respiratory Depth Normal Blood Pressure 177/88 H Blood Pressure [Left Arm] Blood Pressure Mean 117 Blood Pressure Mean [Left Arm] Blood Pressure Position Sitting Pulse Oximetry 96 93 Oxygen Delivery Method Room Air Room Air Room Air Sepsis Recent Fever Within 48 Hours No Sepsis New/Unexplained Change in Mental Status No Sepsis Action Taken by Nursing No Action Required 03/14/22 13:30 03/14/22 13:42 03/14/22 13:42 Temperature Temperature Source Pulse Rate 85 88 Pulse Rate from SpO2 Sensor 86 89 Respiratory Rate 15 25 H Respiratory Effort / Characteristics Respiratory Depth Blood Pressure 133/79 Blood Pressure [Left Arm] Blood Pressure Mean 97 Blood Pressure Mean [Left Arm] Blood Pressure Position Pulse Oximetry 95 93 Oxygen Delivery Method Room Air Room Air Sepsis Recent Fever Within 48 Hours Sepsis New/Unexplained Change in Mental Status Sepsis Action Taken by Nursing 03/14/22 14:33 03/14/22 14:00 03/14/22 14:01 Temperature Temperature Source Pulse Rate 88 Pulse Rate from SpO2 Sensor 90 Respiratory Rate 24 Respiratory Effort / Characteristics Respiratory Depth Blood Pressure 182/101 H Blood Pressure [Left Arm] Blood Pressure Mean 128 Blood Pressure Mean [Left Arm] Blood Pressure Position Pulse Oximetry 94 Oxygen Delivery Method Room Air Room Air Sepsis Recent Fever Within 48 Hours Sepsis New/Unexplained Change in Mental Status Sepsis Action Taken by Nursing 03/14/22 14:01 03/14/22 14:14 03/14/22 14:14 Temperature Temperature Source Pulse Rate 89 102 H Pulse Rate from SpO2 Sensor 88 105 H Respiratory Rate 25 H 16 Respiratory Effort / Characteristics Respiratory Depth Blood Pressure 117/80 Blood Pressure [Left Arm] Blood Pressure Mean 92 Blood Pressure Mean [Left Arm] Blood Pressure Position Pulse Oximetry 97 92 Oxygen Delivery Method Room Air Room Air Sepsis Recent Fever Within 48 Hours Sepsis New/Unexplained Change in Mental Status Sepsis Action Taken by Nursing 03/14/22 14:16 03/14/22 14:17 03/14/22 14:17 Temperature Temperature Source Pulse Rate 72 84 Pulse Rate from SpO2 Sensor 81 83 Respiratory Rate 21 21 Respiratory Effort / Characteristics Respiratory Depth Blood Pressure 78/51 L Blood Pressure [Left Arm] Blood Pressure Mean 60 Blood Pressure Mean [Left Arm] Blood Pressure Position Pulse Oximetry 94 96 Oxygen Delivery Method Sepsis Recent Fever Within 48 Hours Sepsis New/Unexplained Change in Mental Status Sepsis Action Taken by Nursing 03/14/22 14:18 03/14/22 14:20 03/14/22 14:22 Temperature Temperature Source Pulse Rate 74 67 76 Pulse Rate from SpO2 Sensor 72 74 77 Respiratory Rate 16 16 21 Respiratory Effort / Characteristics Respiratory Depth Blood Pressure Blood Pressure [Left Arm] Blood Pressure Mean Blood Pressure Mean [Left Arm] Blood Pressure Position Pulse Oximetry 97 86 L 98 Oxygen Delivery Method Sepsis Recent Fever Within 48 Hours Sepsis New/Unexplained Change in Mental Status Sepsis Action Taken by Nursing 03/14/22 14:23 03/14/22 14:23 03/14/22 14:24 Temperature Temperature Source Pulse Rate 71 78 Pulse Rate from SpO2 Sensor 71 76 Respiratory Rate 16 18 Respiratory Effort / Characteristics Respiratory Depth Blood Pressure 94/49 L Blood Pressure [Left Arm] Blood Pressure Mean 64 Blood Pressure Mean [Left Arm] Blood Pressure Position Pulse Oximetry 94 95 Oxygen Delivery Method Sepsis Recent Fever Within 48 Hours Sepsis New/Unexplained Change in Mental Status Sepsis Action Taken by Nursing 03/14/22 14:26 03/14/22 14:28 03/14/22 14:30 Temperature Temperature Source Pulse Rate 75 83 80 Pulse Rate from SpO2 Sensor 75 81 79 Respiratory Rate 16 20 13 Respiratory Effort / Characteristics Respiratory Depth Blood Pressure Blood Pressure [Left Arm] Blood Pressure Mean Blood Pressure Mean [Left Arm] Blood Pressure Position Pulse Oximetry 95 95 96 Oxygen Delivery Method Room Air Sepsis Recent Fever Within 48 Hours Sepsis New/Unexplained Change in Mental Status Sepsis Action Taken by Nursing 03/14/22 14:31 03/14/22 14:31 03/14/22 14:32 Temperature Temperature Source Pulse Rate 89 94 H Pulse Rate from SpO2 Sensor 88 91 H Respiratory Rate 15 24 Respiratory Effort / Characteristics Respiratory Depth Blood Pressure 123/101 H Blood Pressure [Left Arm] Blood Pressure Mean 108 Blood Pressure Mean [Left Arm] Blood Pressure Position Pulse Oximetry 97 96 Oxygen Delivery Method Room Air Room Air Sepsis Recent Fever Within 48 Hours Sepsis New/Unexplained Change in Mental Status Sepsis Action Taken by Nursing 03/14/22 14:40 Temperature Temperature Source Pulse Rate Pulse Rate from SpO2 Sensor Respiratory Rate 16 Respiratory Effort / Characteristics Respiratory Depth Normal Blood Pressure Blood Pressure [Left Arm] 175/96 H Blood Pressure Mean Blood Pressure Mean [Left Arm] 122 Blood Pressure Position Pulse Oximetry 96 Oxygen Delivery Method Room Air Sepsis Recent Fever Within 48 Hours Sepsis New/Unexplained Change in Mental Status Sepsis Action Taken by Intermediate Medications Current Medication List: was personally reviewed by me Laboratory Data Attestation: I reviewed the patient's lab results. 03/14/22 12:51 03/14/22 12:51 Lab Results 03/14/22 03/14/22 03/14/22 Range/Units 12:51 12:51 12:51 WBC 6.27 (4.8-10.8) K/ul RBC 5.14 (4.63-6.08) M/uL Hgb 17.0 (14.0-18.0) g/dl Hct 45.5 (40.1-51.0) % MCV 88.5 (80.0-100.0) fL MCH 33.1 (25.0-34.0) pg MCHC 37.4 H (32.0-36.0) g/dL RDW Std Deviation 37.8 (36.4-46.3) fL RDW Coeff of Leatha 11.8 (11.5-14.5) % Plt Count 197 (130-400) K/uL MPV 10.4 (9.4-12.4) fL Immature Gran % (Auto) 0.5 % Neut % (Auto) 58.0 % Lymph % (Auto) 27.9 % [place] % (Auto) 9.6 % Eos % (Auto) 2.7 % Baso % (Auto) 1.3 % Neut # (Auto) 3.64 (1.4-6.5) K/uL Lymph # (Auto) 1.75 (1.2-3.4) K/uL [place] # (Auto) 0.60 (0.24-0.82) K/uL Eos # (Auto) 0.17 (0-0.50) K/uL Baso # (Auto) 0.08 (0-0.2) K/uL Immature Gran # (Auto) 0.03 H (0.00-0.02) K/uL PT 10.5 (9.0-12.0) Seconds INR 1.0 (0.9-1.1) APTT 26.5 (21.0-31.0) Seconds PTT Ratio 1.0 Sodium 137 (136-145) mmol/L Potassium 4.0 (3.5-5.1) mmol/L Chloride 103 (98-107) mmol/L Carbon Dioxide 27 (21-32) mmol/L Anion Gap 7 (3-11) BUN 11 (6-23) mg/dl Creatinine 0.81 (0.6-1.4) mg/dl Est Cr Clr Drug Dosing 155.0 ml/min Est GFR ( Amer) 116.0 ml/min Est GFR (Non-Af Amer) 100.1 ml/min BUN/Creatinine Ratio 13.6 (10-20) Glucose 166 H (70-99(Fasting)) mg/dl Calcium 10.2 H (8.5-10.1) mg/dl Total Bilirubin 1.1 H (0.2-1.0) mg/dl AST 46 H (13-39) U/L ALT 72 H (7-52) U/L Alkaline Phosphatase 80 (34-104) U/L Troponin I High Sens 138.6 H* (0-20) pg/ml Total Protein 7.7 (6.0-8.3) gm/dl Albumin 4.5 (3.4-5.0) gm/dl Globulin 3.2 (2.5-4.0) gm/dl Albumin/Globulin Ratio 1.4 (0.9-2) Lipase 20 (11-82) U/L SARS-CoV-2, RNA, NAAT (NEGATIVE) 03/14/22 Range/Units 13:00 WBC (4.8-10.8) K/ul RBC (4.63-6.08) M/uL Hgb (14.0-18.0) g/dl Hct (40.1-51.0) % MCV (80.0-100.0) fL MCH (25.0-34.0) pg MCHC (32.0-36.0) g/dL RDW Std Deviation (36.4-46.3) fL RDW Coeff of Leatha (11.5-14.5) % Plt Count (130-400) K/uL MPV (9.4-12.4) fL Immature Gran % (Auto) % Neut % (Auto) % Lymph % (Auto) % [place] % (Auto) % Eos % (Auto) % Baso % (Auto) % Neut # (Auto) (1.4-6.5) K/uL Lymph # (Auto) (1.2-3.4) K/uL [place] # (Auto) (0.24-0.82) K/uL Eos # (Auto) (0-0.50) K/uL Baso # (Auto) (0-0.2) K/uL Immature Gran # (Auto) (0.00-0.02) K/uL PT (9.0-12.0) Seconds INR (0.9-1.1) APTT (21.0-31.0) Seconds PTT Ratio Sodium (136-145) mmol/L Potassium (3.5-5.1) mmol/L Chloride (98-107) mmol/L Carbon Dioxide (21-32) mmol/L Anion Gap (3-11) BUN (6-23) mg/dl Creatinine (0.6-1.4) mg/dl Est Cr Clr Drug Dosing ml/min Est GFR ( Amer) ml/min Est GFR (Non-Af Amer) ml/min BUN/Creatinine Ratio (10-20) Glucose (70-99(Fasting)) mg/dl Calcium (8.5-10.1) mg/dl Total Bilirubin (0.2-1.0) mg/dl AST (13-39) U/L ALT (7-52) U/L Alkaline Phosphatase (34-104) U/L Troponin I High Sens (0-20) pg/ml Total Protein (6.0-8.3) gm/dl Albumin (3.4-5.0) gm/dl Globulin (2.5-4.0) gm/dl Albumin/Globulin Ratio (0.9-2) Lipase (11-82) U/L SARS-CoV-2, RNA, NAAT NEGATIVE (NEGATIVE) Administered Medications Aspirin (Aspirin 81 Mg Ectab) 81 mg PO [facility] Stop: 04/14/22 08:59 Last Admin: 03/15/22 07:54 Dose: 81 mg Documented By: KELVIN Atorvastatin Calcium (Atorvastatin 40 Mg Tab) 40 mg PO [facility] Stop: 04/13/22 18:59 Last Admin: 03/15/22 07:54 Dose: 40 mg Documented By: Admin: 03/14/22 19:44 Dose: 40 mg Documented By: VALARIE Hydralazine HCl (Hydralazine Hcl 20 Mg/Ml Vial) 10 mg IV Q4H PRN PRN Reason: Blood Pressure - High Stop: 04/13/22 18:20 Last Admin: 03/15/22 04:07 Dose: 10 mg Documented By: JIE Heparin Sodium/Dextrose (Heparin Sodium/Dextrose) 25,000 units in 500 mls @ 30 mls/hr IV .[id number] [facility]; Protocol Stop: 04/13/22 14:14 Last Titration: 03/15/22 08:02 Dose: 1,500 units/hr, 30 mls/hr Documented By: KELVIN Co-signed By: Titration: 03/15/22 00:18 Dose: 1,300 units/hr, 26 mls/hr Documented By: VALARIE Co-signed By: CURLY Admin: 03/14/22 17:33 Dose: 1,000 units/hr, 20 mls/hr Documented By: KELVIN Co-signed By: Insulin Aspart (Insulin Aspart Per Unit) 0 units SC ACHS [facility] Stop: 04/13/22 17:14 Last Admin: 03/15/22 08:01 Dose: 4 units Documented By: KELVIN Co-signed By: Admin: 03/14/22 19:32 Dose: Not Given Documented By: Admin: 03/14/22 17:42 Dose: 1 units Documented By: KELVIN Co-signed By: Insulin Glargine (Lantus Per Unit Charge) 5 units SQ BID [facility] Stop: 04/13/22 20:59 Last Admin: 03/15/22 08:02 Dose: 5 units Documented By: KELVIN Co-signed By: Admin: 03/14/22 20:11 Dose: 5 units Documented By: VALARIE Co-signed By: LIZBET Losartan Potassium (Losartan Potassium 50 Mg Tab) 100 mg PO QAM [facility] Stop: 04/14/22 08:59 Last Admin: 03/15/22 07:54 Dose: 100 mg Documented By: KELVIN Metoprolol Tartrate (Metoprolol Tartrate 25 Mg Tab) 25 mg PO BID [facility] Stop: 04/13/22 20:59 Last Admin: 03/15/22 07:54 Dose: 25 mg Documented By: Admin: 03/14/22 19:44 Dose: 25 mg Documented By: VALARIE Ticagrelor (Ticagrelor 90 Mg Tab) 90 mg PO BID [facility] Stop: 04/13/22 20:59 Last Admin: 03/15/22 07:54 Dose: 90 mg Documented By: Admin: 03/14/22 19:45 Dose: 90 mg Documented By: VALARIE Discontinued Medications Aspirin (Aspirin Chew 324 Mg) 324 mg PO NOW STA Stop: 03/14/22 12:15 Last Admin: 03/14/22 12:43 Dose: 324 mg Documented By: AZAR Atropine Sulfate (Atropine Sulfate 0.1 Mg/Ml 10ml Syr) Confirm Administered Dose 1 mg IV .STK-MED ONE Stop: 03/14/22 16:12 Last Admin: 03/14/22 17:33 Dose: Not Given Documented By: KELVIN Fentanyl Citrate (Fentanyl Citrate 100 Mcg/2 Ml Vial) Confirm Administered Dose 100 mcg .ROUTE .STK-MED ONE Stop: 03/14/22 14:49 Last Admin: 03/14/22 16:00 Dose: 100 mcg Documented By: [id number] Fentanyl Citrate (Fentanyl Citrate 100 Mcg/2 Ml Vial) Confirm Administered Dose 100 mcg .ROUTE .STK-MED ONE Stop: 03/14/22 16:19 Last Admin: 03/14/22 16:27 Dose: 50 mcg Documented By: [id number] Heparin Sodium (Porcine) (Heparin Sod (Porcine) 1000 Unit/Ml) 4,000 units IV NOW ONE Stop: 03/14/22 14:11 Last Admin: 03/14/22 17:32 Dose: 4,000 units Documented By: KELVIN Co-signed By: Heparin Sodium (Porcine) (Heparin (Porcine) 1000 Unit/Ml 10 Ml (Real Estate Office Supervisor Use Only)) Confirm Administered Dose 10,000 units .ROUTE .STK-MED ONE Stop: 03/14/22 14:49 Last Admin: 03/14/22 16:00 Dose: 2,000 units Documented By: [id number] Heparin Sodium (Porcine) (Heparin (Porcine) 1000 Unit/Ml 10 Ml (Real Estate Office Supervisor Use Only)) Confirm Administered Dose 10,000 units .ROUTE .STK-MED ONE Stop: 03/14/22 15:00 Last Admin: 03/14/22 16:00 Dose: 10,000 units Documented By: [id number] Heparin Sodium (Porcine) (Heparin Sod (Porcine) 1000 Unit/Ml) 4,500 units IV NOW ONE Stop: 03/15/22 00:16 Last Admin: 03/15/22 00:18 Dose: 4,500 units Documented By: VALARIE Co-signed By: CURLY Heparin Sodium/Dextrose (Heparin Iv Adult Wt-Based Standard With Bolus Protocol) 1 each IV NOW STA; Protocol Stop: 03/14/22 13:50 Last Admin: 03/14/22 14:02 Dose: Not Given Documented By: MIK Heparin Sodium/Dextrose (Heparin Iv Adult Wt-Based Low-Dose With Bolus Protocol) 1 each IV NOW STA; Protocol Stop: 03/14/22 13:56 Last Admin: 03/14/22 17:33 Dose: 1 each Documented By: KELVIN Heparin Sodium/Sodium Chloride (Heparin In Nss Infusion 1000 Unit/500 Ml (2 U/Ml) Bag) Confirm Administered Dose 3,000 units IV .STK-MED ONE Stop: 03/14/22 14:49 Last Admin: 03/14/22 17:13 Dose: Not Given Documented By: KELVIN Metoprolol Tartrate (Metoprolol Tartrate 1 Mg/Ml Vial) 5 mg IV NOW STA Stop: 03/14/22 17:56 Last Admin: 03/14/22 18:12 Dose: Not Given Documented By: KELVIN Metoprolol Tartrate (Metoprolol Tartrate 1 Mg/Ml Vial) Confirm Administered Dose 5 mg IV .STK-MED ONE Stop: 03/14/22 17:59 Last Admin: 03/14/22 18:00 Dose: 5 mg Documented By: KELVIN Midazolam HCl (Midazolam Hcl 1 Mg/Ml 2ml Vial) Confirm Administered Dose 2 mg .ROUTE .STK-MED ONE Stop: 03/14/22 14:49 Last Admin: 03/14/22 16:00 Dose: 2 mg Documented By: [id number] Nicardipine HCl (Nicardipine Hcl Inj 2.5 Mg/Ml 10 Ml Amp) Confirm Administered Dose 25 mg .ROUTE .STK-MED ONE Stop: 03/14/22 14:49 Last Admin: 03/14/22 17:13 Dose: Not Given Documented By: KELVIN Nitroglycerin (Nitroglycerin 2% Ointment 30gm Tube) 2 inch EXT ONE STA Stop: 03/14/22 14:06 Last Admin: 03/14/22 14:14 Dose: 2 inch Documented By: MIK Nitroglycerin (Nitroglycerin Sl 0.4 Mg/Tab Tab) Confirm Administered Dose 0.4 mg .ROUTE .STK-MED ONE Stop: 03/14/22 14:07 Last Admin: 03/14/22 14:08 Dose: 0.4 mg Documented By: MIK Nitroglycerin (Nitroglycerin Sl 0.4 Mg/Tab Tab) Confirm Administered Dose 0.4 mg .ROUTE .STK-MED ONE Stop: 03/14/22 17:49 Last Admin: 03/14/22 17:57 Dose: Not Given Documented By: KELVIN Nitroglycerin/Dextrose (Nitroglycerin/D5w 100mcg/Ml 20ml Syr) Confirm Administered Dose 2,000 mcg .ROUTE .STK-MED ONE Stop: 03/14/22 14:50 Last Admin: 03/14/22 17:13 Dose: Not Given Documented By: KELVIN Ticagrelor (Ticagrelor 90 Mg Tab) Confirm Administered Dose 180 mg .ROUTE .STK- MED ONE Stop: 03/14/22 16:07 Last Admin: 03/14/22 16:27 Dose: 180 mg Documented By: [id number] Imaging Data Radiologist's Impression: Chest X-Ray 03/14/22 12:14 XR chest 1V portable CLINICAL HISTORY: Chest pain, nonspecific TECHNIQUE: Single frontal radiograph of the chest was obtained. Comparison: Comparison is made to chest radiograph 08/16/2016 FINDINGS: Exam is limited by underpenetration. The cardiomediastinal silhouette is normal. The lungs are clear. No evidence of pleural effusion or pneumothorax. IMPRESSION: No acute chest disease. ACT 112: Negative or not required by law. Electronically signed by: Clayton Houston M.D. 03/14/2022 12:32 PM Discharge Plan Visit Data Chief Complaint: Referred by Doctor Stated Complaint: CHEST PAINS, REF BY DOC ED Provider: Etienne Denton Discharge Problem: Acute non-ST elevation myocardial infarction (NSTEMI), New onset left bundle branch block (LBBB), Unstable angina Patient Disposition: Admitted As Inpatient Discharge Instructions Interventions: ED Discharge Assessment Last Done: 03/14/22 14:33
--- NOTE | 2022-03-14 12:34 | XRay Report ---
XR chest 1V portable CLINICAL HISTORY: Chest pain, nonspecific TECHNIQUE: Single frontal radiograph of the chest was obtained. Comparison: Comparison is made to chest radiograph 08/16/2016 FINDINGS: Exam is limited by underpenetration. The cardiomediastinal silhouette is normal. The lungs are clear. No evidence of pleural effusion or pneumothorax. IMPRESSION: No acute chest disease. ACT 112: Negative or not required by law. Electronically signed by: Clayton Houston M.D. 03/14/2022 12:32 PM
[2022-03-14 13:06] LABS: Basophils # (auto) 0.08 K/uL (0-0.2); Basophils % (auto) 1.3 %; Eosinophils # (auto) 0.17 K/uL (0-0.50); Eosinophils % (auto) 2.7 %; Hematocrit (blood only) 45.5 % (40.1-51.0); Immature Granulocytes # (auto) 0.03 K/uL (0.00-0.02); Immature Granulocytes % (auto) 0.5 %; Lymphocytes # (auto) 1.75 K/uL (1.2-3.4); Lymphocytes % (auto) 27.9 %; Mean Corpuscular Hemoglobin 33.1 pg (25.0-34.0); Mean Corpuscular Hgb Conc 37.4 g/dL (32.0-36.0); Mean Corpuscular Volume 88.5 fL (80.0-100.0); Mean Platelet Volume 10.4 fL (9.4-12.4); Monocytes % (auto) 9.6 %; Neutrophils # (auto) 3.64 K/uL (1.4-6.5); Platelet Count 197 K/uL (130-400); RDW Coefficient of Variation 11.8 % (11.5-14.5); RDW Standard Deviation 37.8 fL (36.4-46.3); Red Blood Count 5.14 M/uL (4.63-6.08); White Blood Count 6.27 K/ul (4.8-10.8)
[2022-03-14 13:18] LABS: Partial Thromboplastin Time 26.5 Seconds (21.0-31.0); Prothrombin Time 10.5 Seconds (9.0-12.0)
--- NOTE | 2022-03-14 13:38 | Electrocardiogram Report ---
Test Reason : Blood Pressure : / mmHG Vent. Rate : 102 BPM Atrial Rate : 102 BPM P-R Int : 178 ms QRS Dur : 154 ms QT Int : 386 ms P-R-T Axes : 000 -33 123 degrees QTc Int : 503 ms Sinus tachycardia with occasional Premature ventricular complexes Left axis deviation Left bundle branch block Abnormal ECG When compared with ECG of 04-FEB-2019 12:19, Premature ventricular complexes are now Present Left bundle branch block now present Confirmed by Sami Juarez ([id number]) on 03/14/2022 1:37:55 PM Referred By: Confirmed By:Sami Juarez
[2022-03-14 13:45] LABS: Albumin Globulin Ratio 1.4 (0.9-2); Albumin Level 4.5 gm/dl (3.4-5.0); BUN Creatinine Ratio 13.6 (10-20); Bilirubin,Total 1.1 mg/dl (0.2-1.0); Calcium 10.2 mg/dl (8.5-10.1); Est GFR (Non-African American) 100.1 ml/min; Globulin 3.2 gm/dl (2.5-4.0); Total Protein 7.7 gm/dl (6.0-8.3)
[2022-03-14] MEDS ORDERED: Heparin IV Adult Wt-Based Standard WITH Bolus Protocol IV STA (13:49)
[2022-03-14 13:50] LABS: Troponin I High Sensitivity 138.6 pg/ml (0-20)
[2022-03-14] MEDS ORDERED: Heparin IV Adult Wt-Based Low-Dose WITH Bolus Protocol IV STA (13:55)
[2022-03-14] MEDS ORDERED: HEPARIN SOD (PORCINE) 1000 UNIT/ML IV ONE ×2 (14:04→14:10)
--- NOTE | 2022-03-14 14:04 | History & Physical Report ---
Date of Service March 14, 2022 Assessment & Plan (1) Acute non-ST elevation myocardial infarction (NSTEMI): Plan: Typical story of exertional chest pain progressively getting worse and now at rest with elevated high-sensitivity troponin consistent with NSTEMI Aspirin 324 mg p.o. given in the ER Ongoing chest pain in the emergency room with elevated BP 182/101 therefore nitroglycerin SL 0.4mg and nitro paste ordered Blood pressure dropped to 78/51 with associated diaphoresis and fatigue with nitroglycerin suggesting right ventricular involvement. Nitro paste was on patient for 3 minutes and removed. Blood pressure and symptoms resolved with normal saline 250 ml bolus - further nitroglycerin discontinued TTE ordered and being done at bedside Discussed with Dr Quiros at bedside and patient will be brought emergently to cardiac labor relations specialist Lipid panel and HbA1c with a.m. labs Pending cardiac cath results will start on beta-kike and statin (2) New onset left bundle branch block (LBBB): Plan: New onset compared to EKG from February 04, 2019 (3) Gout: Plan: Continue allopurinol 100 mg p.o. daily (4) Sleep apnea: Plan: CPAP @ 17 cm H2O (5) Diabetes mellitus, type 2: Plan: Repeat HbA1c with a.m. labs Consult pharmacy for glycemic control during admission with insulin Glucose 166 mg/dL on admission (6) GERD (gastroesophageal reflux disease): Plan: Switch omeprazole for pantoprazole 40 mg daily per hospital formulary (7) Hypertension: Plan: Given hypotension with nitroglycerin sublingual tablet will currently discontinue all blood pressure medication (8) KONG (nonalcoholic steatohepatitis): (9) Hypertriglyceridemia: Plan: Lipid panel with a.m. labs Continue gemfibrozil (10) Enlarged prostate: Plan: Prostate pain not fully explored on admission due to current NSTEMI. Bactrim sent in by his primary care provider. Will defer treatment for this pending urinalysis. Plan VTE Prophyalxis - deferred pending Diet - NPO for cardiac cath Disposition - pending cardiac cath Admission and Anticipated Discharge Date Admission Date: March 14, 2022 History of Present Illness Chief Complaint: Chest pain Primary Care Provider: Jarred Donis MD Kavin Browne is a 56 year old male who presents to the ER on advice of his primary care physician due to chest pain. He reports progressively worsening chest pain on exertion over the last year or more. Since it has been going on for such a long time he did not think it was the serious. Usually he walks over 2 miles a day and has been getting chest pain approximately 2 miles into his walk but it was subsequently go away as he walks further. For the last 2 days to a week he has been having chest pain at rest. Occasionally a lot in the morning. He thought it was CPAP related however he did take an aspirin for the last 2 days due to concern about his heart. Chest pain is associated with dizziness, fatigue, diaphoresis and nausea. Radiates to both arms. Currently in the ER is having chest pain radiating to both arms severity 2 out of 10 - this is much better than when he walks around. He denies any palpitations, orthopnea, paroxysmal nocturnal dyspnea, claudication. He reports having diabetes treated with metformin. His last HbA1c in March 2021 was 5.8. He reports hypertriglyceridemia for which he takes gemfibrozil. He reports smoking weed on occasion but no tobacco. He used to chew tobacco but quit 8 years ago. Allergies Allergy/AdvReac Type Severity Reaction Status Date / Time amoxicillin Allergy Mild rash, hives Verified 03/14/22 10:01 lisinopril Allergy Mild cough Verified 03/14/22 10:01 Penicillins Allergy Mild rash, hives Verified 03/14/22 10:01 Home Medications Medication Instructions Recorded Confirmed Type cetirizine 10 mg tablet 10 mg PO QAM #30 tabs 09/04/18 03/14/22 History mv-min-vit C-ascorb 1.7 mg PO DAILY 12/18/18 03/14/22 History Qc-Dtq-Ory-herb #124 333 mg-1.7 mg chewable tablet (Airborne (ascorbate sodium)) meloxicam 15 mg tablet 15 mg PO DAILY PRN swelling #90 03/15/20 03/14/22 Rx tabs losartan 100 mg tablet 100 mg PO DAILY #90 tabs 03/12/21 03/14/22 Rx omeprazole 20 mg capsule,delayed 20 mg PO DAILY #90 caps 07/03/21 03/14/22 Rx release CPAP Machine #1 ea 08/06/21 03/14/22 Rx metformin 500 mg tablet,extended 500 mg PO DAILY #90 tabs 03/05/22 03/14/22 Rx release 24 hr allopurinol 100 mg tablet 100 mg PO DAILY 03/14/22 03/14/22 History gemfibrozil 600 mg tablet 600 mg PO QPM 03/14/22 03/14/22 History Past Med/Surg History Medical History Genitofemoral neuralgia of left side History of alcohol abuse Mediastinitis Prostatitis Surgical History History of arthroscopy of left knee History of bilateral inguinal hernia repair History of colonoscopy History of difficult intubation Left knee scope, LMM, debridement, loose body removal: 10/31/17: Grade 2 view, Glidescope#4, ETT 7.5 at [facility] History of umbilical hernia repair History of wisdom tooth extraction Status post correction of deviated nasal septum Family History Father Cancer Mother FH: kidney cancer Heart disease Family history of diabetes mellitus Other No family history of adverse response to anesthesia Social History Smoking Status: Current every day smoker Second Hand Exposure: Yes ( A CHILD); Hx Alcohol Use: Yes Alcohol type: beer and hard liquor Hx Substance Use: No Preferred Language: [place] Communication Ability: Effective Visual Impairment: No Limitations Hearing Ability: Normal Pharmacy Student Required: No Beliefs That Will Affect Care: None marital status: Single Current Living Situation: Family Current Living Situation Comment: Lives with mom current occupational status: disabled Feels Safe at Home: Yes Assistive Devices: CPAP and Glasses Review of Systems Review of Systems: All systems reviewed & are unremarkable except as noted in HPI & below Reports recent concerns for enlarged prostate which potentially may be infected enlarged prostate Physical Exam Constitutional: WD/WN, vitals as above Eyes: + anicteric sclerae; normal pupil size Respiratory: normal respiratory effort, lungs clear to auscultation Cardiovascular: RRR, no murmur, no edema Gastrointestinal (Abdomen): normal bowel sounds, soft, nontender, no hepatosplenomegaly Musculoskeletal: no cyanosis or clubbing, extremities motor strength 5/5 Skin: no rashes, warm and dry Neurologic: moves all extremities and awake; not confused Psychiatric: A+Ox3, euthymic affect Results & Data Results & Data ([facility]) Vital Signs (Past 12 Hours) Vital Signs Temp Pulse Resp BP Pulse Ox O2 Del Method 03/14/22 13:42 133/79 03/14/22 13:42 88 25 H 93 Room Air 03/14/22 13:30 85 15 95 Room Air 03/14/22 13:13 89 15 93 Room Air 03/14/22 13:30 Room Air 03/14/22 12:05 36.5 C 95 H 16 177/88 H 96 Room Air Laboratory Results Abnormal lab results 03/14/22 03/14/22 Range/Units 12:51 12:51 MCHC 37.4 H (32.0-36.0) g/dL Immature Gran # (Auto) 0.03 H (0.00-0.02) K/uL Glucose 166 H (70-99(Fasting)) mg/dl Calcium 10.2 H (8.5-10.1) mg/dl Total Bilirubin 1.1 H (0.2-1.0) mg/dl AST 46 H (13-39) U/L ALT 72 H (7-52) U/L Troponin I High Sens 138.6 H* (0-20) pg/ml Diagnostic Findings XR chest 1V portable CLINICAL HISTORY: Chest pain, nonspecific TECHNIQUE: Single frontal radiograph of the chest was obtained. Comparison: Comparison is made to chest radiograph 08/16/2016 FINDINGS: Exam is limited by underpenetration. The cardiomediastinal silhouette is normal. The lungs are clear. No evidence of pleural effusion or pneumothorax. IMPRESSION: No acute chest disease. Medications Administered ER medications given: Aspirin 324 mg p.o. ECG Indication: chest pain Rate (beats per minute): 81 Rhythm: normal sinus Comparison ECG Date: from (February 04, 2019) Code Status & VTE Plan Code Status Full VTE Prophylaxis Plan VTE Prophylaxis will be ordered: Yes PG Care Time/CCT Total # of Minutes Spent Total Time Spent with Patient: Total time spent is greater than 50% in coordination of care (as documented) at patient's floor/unit and/or counseling patient: Coding Level of Care Code 78388 INT INP/OBS CARE 3/75MIN Diagnoses Acute non-ST elevation myocardial infarction (NSTEMI) I21.4 New onset left bundle branch block (LBBB) I44.7 Gout M10.9 Sleep apnea G47.30 Diabetes mellitus, type 2 E11.9 GERD (gastroesophageal reflux disease) K21.9 Hypertension I10 KONG (nonalcoholic steatohepatitis) K75.81 Hypertriglyceridemia E78.1 Enlarged prostate N40.0
[2022-03-14] MEDS ORDERED: NITROGLYCERIN SL 0.4 MG/TAB TAB SL PRN (14:05)
[2022-03-14] MEDS ORDERED: NITROGLYCERIN 2% OINTMENT 30GM TUBE EXT STA (14:05)
[2022-03-14] MEDS ORDERED: NITROGLYCERIN SL 0.4 MG/TAB TAB ONE ×2 (14:06→17:48)
[2022-03-14] MEDS ORDERED: HEPARIN SODIUM/DEXTROSE 25,000 UNITS/500 ML BAG IV SCH (14:15)
[2022-03-14] MEDS ORDERED: HEPARIN (PORCINE) 1000 UNIT/ML 10 ML (CATH LAB USE ONLY) ONE ×2 (14:48→14:59)
[2022-03-14] MEDS ORDERED: fentaNYL citrate 100 MCG/2 ML VIAL ONE ×2 (14:48→16:18)
[2022-03-14] MEDS ORDERED: niCARdipine HCL INJ 2.5 MG/ML 10 ML AMP ONE (14:48)
[2022-03-14] MEDS ORDERED: MIDAZOLAM HCL 1 MG/ML 2ML VIAL ONE (14:48)
[2022-03-14] MEDS ORDERED: NITROGLYCERIN/D5W 100MCG/ML 20ML SYR ONE (14:49)
--- NOTE | 2022-03-14 14:56 | XCELERA ---
[id number]
[2022-03-14] MEDS ORDERED: TICAGRELOR 90 MG TAB ONE (16:06)
[2022-03-14] MEDS ORDERED: ATROPINE SULFATE 0.1 MG/ML 10ML SYR IV ONE (16:11)
[2022-03-14] MEDS ORDERED: GLUCOSE 10 TAB/TUBE PO PRN (17:03)
[2022-03-14] MEDS ORDERED: GLUCOSE 40% GEL 15 GM TUBE PO PRN (17:03)
[2022-03-14] MEDS ORDERED: GLUCAGON FOR INJ 1 MG VIAL SQ PRN (17:03)
[2022-03-14] MEDS ORDERED: DEXTROSE 50% 50 ML SYRINGE IV PRN (17:03)
[2022-03-14] MEDS ORDERED: CARBOHYDRATES FOR HYPOGLYCEMIA PO PRN (17:03)
[2022-03-14] MEDS ORDERED: MoRPHine SULFATE 2 MG/ML CARP IV PRN (17:08)
--- NOTE | 2022-03-14 17:14 | Pre Anesthesia Assessment ---
Date of Service March 14, 2022 Pre Sedation Assessment Vital Signs Temp Pulse Pulse Resp BP BP Pulse Ox 03/14/22 17:00 71 20 187/114 H 96 03/14/22 14:40 16 175/96 H 96 03/14/22 14:32 94 H 24 96 03/14/22 14:31 89 15 97 03/14/22 14:31 123/101 H 03/14/22 14:30 80 13 96 03/14/22 14:28 83 20 95 03/14/22 14:26 75 16 95 03/14/22 14:24 78 18 95 03/14/22 14:23 94/49 L 03/14/22 14:23 71 16 94 03/14/22 14:22 76 21 98 03/14/22 14:20 67 16 86 L 03/14/22 14:18 74 16 97 03/14/22 14:17 84 21 96 03/14/22 14:17 78/51 L 03/14/22 14:16 72 21 94 03/14/22 14:14 102 H 16 92 03/14/22 14:14 117/80 03/14/22 14:01 89 25 H 97 03/14/22 14:01 182/101 H 03/14/22 14:00 88 24 94 03/14/22 14:33 03/14/22 13:42 133/79 03/14/22 13:42 88 25 H 93 03/14/22 13:30 85 15 95 03/14/22 13:13 89 15 93 03/14/22 13:30 03/14/22 12:05 36.5 C 95 H 16 177/88 H 96 O2 Del Method 03/14/22 17:00 Room Air 03/14/22 14:40 Room Air 03/14/22 14:32 Room Air 03/14/22 14:31 Room Air 03/14/22 14:31 03/14/22 14:30 Room Air 03/14/22 14:28 03/14/22 14:26 03/14/22 14:24 03/14/22 14:23 03/14/22 14:23 03/14/22 14:22 03/14/22 14:20 03/14/22 14:18 03/14/22 14:17 03/14/22 14:17 03/14/22 14:16 03/14/22 14:14 Room Air 03/14/22 14:14 03/14/22 14:01 Room Air 03/14/22 14:01 03/14/22 14:00 Room Air 03/14/22 14:33 Room Air 03/14/22 13:42 03/14/22 13:42 Room Air 03/14/22 13:30 Room Air 03/14/22 13:13 Room Air 03/14/22 13:30 Room Air 03/14/22 12:05 Room Air Cardiovascular RRR, no murmur, no edema Respiratory normal respiratory effort, lungs clear to auscultation Pre-Sedation Airway Assessment Smoking Status: Current every day smoker Short, Thick Neck: Yes Thyromental Distance: < 3.5 Finger Breadths Oral Cavity: + WNL Mallampati Class: IV ASA: ASA3 NPO Status Date of Last Intake of Fluids: 03/14/22 Date of Last Intake of Solid Food: 03/14/22 Notes The planned sedation has been discussed with the patient. Informed Consent was obtained. I have identified the patient, determined the appropriateness of sedation and have assessed the patient immediately prior to the procedure. All medicine(s) and interventions are by my order.
--- NOTE | 2022-03-14 17:17 | Post Anesthesia Assessment ---
Date of Service March 14, 2022 Post Sedation Assessment Vital Signs Temp Pulse Pulse Resp BP BP Pulse Ox 03/14/22 17:00 71 20 187/114 H 96 03/14/22 14:40 16 175/96 H 96 03/14/22 14:32 94 H 24 96 03/14/22 14:31 89 15 97 03/14/22 14:31 123/101 H 03/14/22 14:30 80 13 96 03/14/22 14:28 83 20 95 03/14/22 14:26 75 16 95 03/14/22 14:24 78 18 95 03/14/22 14:23 94/49 L 03/14/22 14:23 71 16 94 03/14/22 14:22 76 21 98 03/14/22 14:20 67 16 86 L 03/14/22 14:18 74 16 97 03/14/22 14:17 84 21 96 03/14/22 14:17 78/51 L 03/14/22 14:16 72 21 94 03/14/22 14:14 102 H 16 92 03/14/22 14:14 117/80 03/14/22 14:01 89 25 H 97 03/14/22 14:01 182/101 H 03/14/22 14:00 88 24 94 03/14/22 14:33 03/14/22 13:42 133/79 03/14/22 13:42 88 25 H 93 03/14/22 13:30 85 15 95 03/14/22 13:13 89 15 93 03/14/22 13:30 03/14/22 12:05 36.5 C 95 H 16 177/88 H 96 O2 Del Method 03/14/22 17:00 Room Air 03/14/22 14:40 Room Air 03/14/22 14:32 Room Air 03/14/22 14:31 Room Air 03/14/22 14:31 03/14/22 14:30 Room Air 03/14/22 14:28 03/14/22 14:26 03/14/22 14:24 03/14/22 14:23 03/14/22 14:23 03/14/22 14:22 03/14/22 14:20 03/14/22 14:18 03/14/22 14:17 03/14/22 14:17 03/14/22 14:16 03/14/22 14:14 Room Air 03/14/22 14:14 03/14/22 14:01 Room Air 03/14/22 14:01 03/14/22 14:00 Room Air 03/14/22 14:33 Room Air 03/14/22 13:42 03/14/22 13:42 Room Air 03/14/22 13:30 Room Air 03/14/22 13:13 Room Air 03/14/22 13:30 Room Air 03/14/22 12:05 Room Air Recovery Score Activity: Moves 4 extremities Respiration: Deep Breath/Cough Circulation: +/-20% PreAnes Value Consciousness: Fully Awake Oxygen Saturation: > 92% On Room Air Discharge Sedation Level of Care: Phase I Post Sedation Plan On clinical assessment, the patient appears to have tolerated the sedation without complications. Patient is recovering as anticipated. Patient will continue to be monitored by nursing and may be discharged when sedation discharge criteria are met per below protocol. Upon Completions of procedure up to 15 minutes continue every 5 minute vital signs and the P.A.R. score; then discharge to a Phase I or Fast Track to Phase II per the following guidelines: * Discharge Patient to appropriate Phase II area if PAR is 8 or greater or return to pre- procedure baseline. The post - procedure orders will be as directed. * If PAR score is less than 8 or not return to pre-procedure baseline then patient will follow Phase I monitoring till PAR is reached for Phase II. The Phase I may be done in procedure room or may call to secure a Phase I area. * If naloxone or flumazenil are used for reversal, hold in Phase I for continued monitoring from when last reversal dose was given for a minimum of 60 minutes or longer pending the nurse and/or physician discretion of patient condition before discharge to Phase II. Please call the Sedation Physician to re-evaluate and complete post-note for discharge to Phase II area. Do NOT discharge from procedure sedation or Phase 1 until post- sedation evaluation note is complete by procedure /sedation MD Sedation Discharge Instructions to be given to the patient at discharge to home. [facility] Procedure Codes (Charges) Indication for Procedure Indication for procedure: NSTEMI Sedation/Anesthesia Procedure 1: Sedation/Anesthesia: 33741 Mod Sedation by the same physician;Init15 Min Child Age 5 & Up (initial 15 min (total 91 min)) Total Sedation Time (minutes): 91 Procedure 2: Sedation/Anesthesia: 42627 Mod Sedation by the same physician; Ea [id number] Minutes (additional 76 min) Total Sedation Time (minutes): 91
[2022-03-14] MEDS: HEPARIN SODIUM/DEXTROSE 25,000 UNITS/500 ML BAG IV SCH (17:33)
[2022-03-14] MEDS: INSULIN ASPART PER UNIT SC SCH ×2 (17:42→19:32)
--- NOTE | 2022-03-14 17:45 | Cardiac Catheterization ---
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 70 to 80% and hazy.) R PDA (% Stenosis): Ostial (90% extending into the proximal portion.) R PL1 (% Stenosis): Ostial (99%), Proximal (Diffuse moderate), Mid (80%) and Distal (75%) Diagnostic Physicians Name: Jonathon Mohan MD, PhD Closure Device Percutaneous Entry Location: Radial Closure Device: Radial Band Recommendations: Medical Therapy and/or Counseling and PCI without planned CABG PCI Indication: PCI for high risk Non-HARIS Lesion Segment Name: Distal RCA, bifurcation into proximal PDA and posterior lateral branch Culprit Artery: Yes Stenosis Prior to Rx (%): 70 to 80% Chronic Total Occlusion: No Pre-Procedure PATRICK Flow: 2 Previously Treated Lesion: No Lesion Complexity: High/C Lesion Length (mm): 22 mm Thrombus Present: No Bifurcation Lesion: Yes Guidewire Across Lesion: Yes Lesion #2 Segment Name: Ostial to proximal PDA Culprit Artery: Yes Stenosis Prior to Rx (%): 90% Chronic Total Occlusion: No Pre-Procedure PATRICK Flow: 2 Previously Treated Lesion: No Lesion Complexity: High/C Lesion Length (mm): 18 mm Thrombus Present: No Guidewire Across Lesion: Yes Intraprocedure Events Significant Disection: No Perforation: No Cardiac Cath Procedure Full Procedure Date March 14, 2022 Pre-Procedure Diagnosis Pre-Procedure Diagnosis: Non STEMI AUC Score AUC Score: 07 Post-Procedure Diagnosis Post-Procedure Diagnosis: Severe CAD Procedure(s) Performed Procedure(s) Performed: Coronary Angiography and Drug Eluting Stent Field Operations Manager Jonathon Mohan MD, PhD Estimated Blood Loss Estimated Blood Loss: None (20 ml) Medication(s) Medication(s): Fentanyl, Heparin, Lidocaine 1%, Nicardipine, Nitroglycerin and Versed Summary of Findings Brief description: Patient was brought to the cardiac catheterization suite where he was shaved and prepped in a sterile fashion. Sedated using IV Versed and fentanyl. Soft tissues of the right wrist were anesthetized using 2 mL of 1% Xylocaine. The right radial artery was accessed with a modified Seldinger technique and a 6 Romanian radial artery glide sheath was placed. All catheters were advanced and exchanged over a 0.035 J-tip wire. Patient was provided anticoagulation with IV heparin and antispasmodics including verapamil and nitroglycerin. Left coronary angiography in orthogonal views with a 5 Romanian JL 4 diagnostic catheter. Right coronary angiography in orthogonal views with a 5 Romanian [place] 4 diagnostic catheter. Diagnostic catheters were removed. Culprit lesion was unclear. We first started with attempted PCI of the obtuse marginal branch of the circumflex. A 6 Romanian EBU 3.5 guide catheter was used to engage the left main coronary artery. Through this, a BMW versa guidewire was advanced to the occlusion in the proximal OM. However, we were unable to pass the wire across the lesion. We change the wire out for an Asahi Prowater but this was again unsuccessful in passing the lesion. The distal vessel did fill via left to left collateralization and suspicion was that this was a chronic total occlusion. Therefore, we turned our attention to the RCA lesion. The wires were removed and the guide catheter was removed. A 6 Romanian JR4 guide catheter was used to engage the right coronary artery. Through this, a BMW universal guidewire was advanced but could not pass the complex lesion. This wire was then removed. The Asahi Prowater was then advanced but again we could not pass the complex distal lesion. Therefore, we used a run-through guidewire and with some difficulty we were able to traverse the lesion distally and placed the wire into the distal PDA. Then, a second run-through wire was advanced and again with difficulty we were eventually able to pass this guidewire into the midportion of the posterolateral branch. The ostial and proximal PDA lesion was then predilated using a 2.0 x 12 mm mini trek balloon with multiple inflations up to a maximum of 14 cynthia. The balloon was then pulled back and positioned across the distal RCA complex lesion where it was again predilated using 14 cynthia. The balloon was then removed and school speech therapist angiography was performed. We reinserted a second 2.0 x 12 mm mini trek balloon and advance it over the Runthrough wire positioned within the posterior lateral branch. We then placed this balloon across the lesion in the ostial to proximal posterolateral branch and inflated to 12 cynthia. After multiple inflations the balloon was removed. Patient had noted some chest discomfort with balloon inflations but these resolved after deflation. ACT was checked intermittently and additional heparin provided as needed to maintain therapeutic anticoagulation. A 2.25 x 22 mm Krystian drug-eluting stent was advanced over the wire to cross the lesion in the ostial and proximal PDA and the most distal portion of the RCA. The posterolateral branch wire was then removed. The stent was deployed with additional inflations for a final diameter of 2.5 mm. Stent balloon was then removed. A 3.0 x 18 mm Krystian drug-eluting stent was then advanced over the wire and positioned with its distal edge within the proximal edge of the initial stent. This was then deployed with multiple inflations for a final diameter of approximately 3.3 mm. The stent balloon was then removed. Next, an NC trek 3.0 x 15 mm noncompliant balloon was then advanced and positioned within the distal RCA stent. This stent was postdilated. Our intention was to also post dilate the overlapped portion but we could not advance the balloon. Patient received intracoronary nitroglycerin for chest pain and elevated ST segments on the monitor. The EKG changes then resolved. His chest pain got modestly better but persisted. Because of his high radiation dose (morbidly obese with a very large abdomen) we decided to forego further postdilatation. Final angiography suggested that the proximal stent when viewed in a different view did not overlap with the initial stent and there was a short unstented intervening segment. No significant stenosis within that segment. Therefore, the guidewire and guide catheter were removed. Radial artery sheath was removed. Hemostasis was obtained using a TR band. Patient remained hemodynamically stable. He was returned to the recovery area with plan for admission. This ended the case. Coronary angiography findings: Left main trunk: Large caliber vessel which trifurcates into LAD, ramus, and left circumflex. Diffuse mild disease. LAD: This is a large-caliber vessel which just reaches the apex. Proximal segment has diffuse mild disease. It then gives a medium caliber branching first diagonal which has proximal 30% to 40% stenosis before it branches. The rest of the diagonal has mild luminal irregularities. At the level of the diagonal ostium the LAD has a long eccentric stenosis extending throughout the mid segment of up to 50%. The distal vessel then has mild scattered disease. LC X: This is large caliber and nondominant. Proximal segment in the AV groove has diffuse disease with a long eccentric stenosis of up to 90% occurring before the first major obtuse marginal branch. First OM is 100% occluded just beyond the ostium. The vessel fills late via left to left collateralization and appears to be of relatively large caliber and branching distally. The AV groove circumflex just beyond the OM branch is tortuous, provides a large atrial branch and terminates distally. Ramus: Medium to large caliber branching vessel. It has mid up to 30% stenosis. RCA: This is a large-caliber and dominant vessel. Ostial disease is mild. Then the proximal and mid vessel have mild luminal irregularities. Distally there is an eccentric lesion of 70 to 80% and then there are segmental ectatic regions with complex disease which continues to the ostium of the PDA and the posterolateral branch. PDA is medium to large in caliber with an ostial stenosis of 90% and then mild diffuse disease in the mid to distal vessel. The posterior lateral branch is medium in caliber with diffuse disease most severe at the ostium of 99%. There is PATRICK II flow in the RCA from the distal RCA into the branch vessels. PCI of dRCA, ostial PLB and ostial to proximal PDA: There is 0% residual stenosis in the PDA post PCI There is 50% residual stenosis at the ostium of the posterolateral branch. 0% residual stenosis across the distal RCA stenosis. The short intervening segment remains hazy (this is unchanged from prior to PCI) PATRICK-3 flow post PCI in the PDA and posterolateral branch (this is improved) Summary: 1. Severe multivessel coronary artery disease. Apparent chronic total occlusion of the large OM branch of the circumflex and complex disease of the distal RCA, PDA, and posterolateral branch. 2. PCI of the distal RCA and PDA with 2 drug-eluting stents. 3. Suboptimal angiographic results in the distal RCA in the short unstented intervening segment. We will monitor carefully. Patient will remain on heparin drip and dual antiplatelet therapy with aspirin and Brilinta. We will control his blood pressure which was noted to be very elevated. I would consider return to the Dry Starch Supervisor for femoral artery approach and attempt to stent the intervening segment if we are unable to resolve his chest pain or if his EKG has return of ischemic changes. Would like to avoid this if possible given the large radiation dose he required just for diagnostic and interventional procedures already performed. Hemodynamics Rest Ao:: 116/83 mmHg, mean 92 mmHg Final Ao: 190/116 mmHg, mean 147 mmHg LV: Not performed Recommendations Recommendations: Medical Therapy and/or Counseling and PCI without planned CABG Radiation Exposure (mGy) 7169 mGy, fluoroscopy time 36.2 minutes Contrast (mls) 370 mL Anesthesia 2 mg IV Versed, 150 mcg IV fentanyl Procedural Complication(s) None Disposition PCU I attest to the content of the Intraoperative Record and any orders documented therein. Any exceptions are noted below. [facility] Card Cath Procedure Codes Cardiac Catheterization Procedure 1: Cardiovascular Cath Procedures: 44740 Coronaries Moderate Sedation Procedure 1: Sedation/Anesthesia: 50325 Mod Sedation by the same physician;Init15 Min Child Age 5 & Up (Initial 15 minutes (total 91 minutes)) Procedure 2: Sedation/Anesthesia: 41900 Mod Sedation by the same physician; Ea [id number] Minutes (Additional 76 minutes (total 91 minutes)) Stenting Procedure 1: Cardiovascular Stent Procedures: 23318 Perc transcatheter placement of intracoronary stent(s), with ang (RCA, PDA) PG Care Time/CCT Total # of Minutes Spent Total Time Spent with Patient: Total time spent is greater than 50% in coordination of care (as documented) at patient's floor/unit and/or counseling patient:
[2022-03-14] MEDS ORDERED: METOPROLOL TARTRATE 1 MG/ML VIAL IV STA (17:55)
[2022-03-14] MEDS ORDERED: METOPROLOL TARTRATE 1 MG/ML VIAL IV ONE (17:58)
--- NOTE | 2022-03-14 18:19 | Cardiology Consultation ---
Date of Consultation March 14, 2022 Assessment & Plan (1) Acute non-ST elevation myocardial infarction (NSTEMI): Complex multivessel disease as described in cardiac cath. Able to reestablish PATRICK-3 flow and overall improve disease in the RCA. Angiographically less than what I would prefer, however, attempts to improve on that carry the risk of excessive radiation exposure. Therefore, we will use medical management as much as possible reserving repeat catheterization for hemodynamic instability, refra ctory ventricular arrhythmia, or recurrent ST elevations. Patient will be on dual antiplatelet therapy with aspirin and Brilinta. In addition, he will remain on heparin drip at least until tomorrow. We will follow his cardiac troponins. Additional labs including CBC and BMP. We will need to aggressively manage his risk factors including blood pressure, lipids, and long-term his blood sugar. His guideline directed medical therapy will include high intensity statin, beta-kike, and angiotensin receptor kike. The echocardiogram should have been completed and will be interpreted. (2) Hypertension: Blood pressure is very elevated at the moment. We will provide losartan 100 mg daily that he was receiving previously. Initiate beta-kike therapy. Limit nitroglycerin therapy but can use small amounts as needed. Can also use IV hydralazine if needed. (3) Hyperlipidemia: He is high risk. High intensity statin therapy is recommended. A fasting lipid panel should be checked. Plan I will follow carefully. I should be contacted should the patient have significant symptoms overnight or should he have a significant change in his clinical status. History of Present Illness Reason for Consultation: Chest pain, positive troponin Attending Physician: Agus Hernandez MD History of Present Illness 56-year-old morbidly obese diabetic male who was sent from his primary care provider's office to the emergency department for complaint of chest pain. In the emergency department he was found to have elevated troponin and a left bundle branch block on the EKG. Cardiology was asked to see him. On my arrival to the emergency department the patient had become hypotensive after nitroglycerin was provided. An echocardiogram was being performed which did not appear to show abnormalities in the right ventricle. The interventricular septum appeared to be dyssynchronous with the remainder of the left ventricle. Quality of the study was limited secondary to his body habitus but there appeared to be no additional wall motion abnormalities. He was initially with left bundle branch block but on checking the monitor he was in sinus rhythm with a narrow complex QRS. Taken as a whole, I was concerned about an acute coronary syndrome and therefore I spoke with him and his about proceeding directly to the Transformer Repairer for definitive evaluation. In the Transformer Repairer he underwent radial approach diagnostic cath which revealed severe 100% occlusion in a large obtuse marginal branch as well as a complex lesion involving the distal RCA and the proximal portions of the 2 major branch vessels. Was not sure if the large obtuse marginal vessel was the culprit lesion but after trying to cross it with a guidewire it became apparent that this was not the acute issue. I therefore decided to see if we could pass guidewires across the complex distal RCA and branch vessel lesions. These also appear to be chronic but were not 100% occluded. There also appeared to be possible thrombus and ulcerated plaque. With some difficulty we were eventually able to implant a stent in the ostial to proximal PDA with the stent extending into the most distal portion of the RCA. We were also able to place a stent across the distal RCA lesion which was longer. Results were adequate but suboptimal. Because he required a high radiation dose we did not try to perform additional procedure. His chest pain improved but did not completely resolve. Initial ST elevations identified with angioplasty did normalize. He also had PATRICK-3 flow post PCI. He has therefore been admitted to the PCU with plan for careful monitoring and therapy. As it turns out, patient has been having chest pain for about a year. In the last couple weeks it has significantly worsened such that he cannot walk far at all before he has chest tightness. Interestingly, when he was in the emergency department he was not having any chest pain just some mild shortness of breath. He denies syncope, near syncope, orthopnea, PND, racing heartbeat, palpitations, or edema. Allergies Allergy/AdvReac Type Severity Reaction Status Date / Time amoxicillin Allergy Mild rash, hives Verified 03/14/22 10:01 lisinopril Allergy Mild cough Verified 03/14/22 10:01 Penicillins Allergy Mild rash, hives Verified 03/14/22 10:01 Home Medications Medication Instructions Recorded Confirmed Type cetirizine 10 mg tablet 10 mg PO QAM #30 tabs 09/04/18 03/14/22 History mv-min-vit C-ascorb 1.7 mg PO DAILY 12/18/18 03/14/22 History Dk-Bne-Nce-herb #124 333 mg-1.7 mg chewable tablet (Airborne (ascorbate sodium)) meloxicam 15 mg tablet 15 mg PO DAILY PRN swelling #90 03/15/20 03/14/22 Rx tabs losartan 100 mg tablet 100 mg PO DAILY #90 tabs 03/12/21 03/14/22 Rx omeprazole 20 mg capsule,delayed 20 mg PO DAILY #90 caps 07/03/21 03/14/22 Rx release CPAP Machine #1 ea 08/06/21 03/14/22 Rx metformin 500 mg tablet,extended 500 mg PO DAILY #90 tabs 03/05/22 03/14/22 Rx release 24 hr allopurinol 100 mg tablet 100 mg PO DAILY 03/14/22 03/14/22 History gemfibrozil 600 mg tablet 600 mg PO QPM 03/14/22 03/14/22 History Patient History Medical History Genitofemoral neuralgia of left side History of alcohol abuse Mediastinitis Prostatitis Surgical History History of arthroscopy of left knee History of bilateral inguinal hernia repair History of colonoscopy History of difficult intubation Left knee scope, LMM, debridement, loose body removal: 10/31/17: Grade 2 view, Glidescope#4, ETT 7.5 at [facility] History of umbilical hernia repair History of wisdom tooth extraction Status post correction of deviated nasal septum Family History Father Cancer Mother FH: kidney cancer Heart disease Family history of diabetes mellitus Other No family history of adverse response to anesthesia Social History Smoking Status: Current every day smoker Second Hand Exposure: No; Hx Alcohol Use: Yes Alcohol type: wine Hx Substance Use: Yes Preferred Language: Citizen Of [place] Communication Ability: Effective Visual Impairment: No Limitations Hearing Ability: Normal [place] Required: No Beliefs That Will Affect Care: None marital status: Single Current Living Situation: Significant Other Current Living Situation Comment: Lives with mom current occupational status: disabled Feels Safe at Home: Yes Assistive Devices: CPAP Review of Systems Review of Systems: Negative except as per HPI Physical Exam Constitutional: Hypertensive, mildly uncomfortable appearing, morbidly obese. Mild diaphoresis with chest pain. Eyes: Extraocular muscles intact. Sclera are anicteric. ENMT: Oral mucosa is pink, moist, and intact. Neck: Thick thick. No JVD appreciated Respiratory: Clear to auscultation bilaterally. No wheezing, rhonchi, or rales Cardiovascular: RRR, no murmur, no edema Gastrointestinal (Abdomen): Obese. Normal bowel sounds Musculoskeletal: no cyanosis or clubbing, extremities motor strength 5/5 Neurologic: Cognition intact. Speech is fluent. No focal deficits. Psychiatric: A+Ox3, euthymic affect Results & Data ([facility]) Vital Signs (Past 12 Hours) Vital Signs Temp Pulse Pulse Resp BP BP Pulse Ox 03/14/22 17:30 03/14/22 17:24 71 21 171/107 H 96 03/14/22 17:00 36.9 C 72 20 187/114 H 97 03/14/22 17:09 72 20 188/116 H 97 03/14/22 17:00 71 20 187/114 H 96 03/14/22 14:40 16 175/96 H 96 03/14/22 14:32 94 H 24 96 03/14/22 14:31 89 15 97 03/14/22 14:31 123/101 H 03/14/22 14:30 80 13 96 03/14/22 14:28 83 20 95 03/14/22 14:26 75 16 95 03/14/22 14:24 78 18 95 03/14/22 14:23 94/49 L 03/14/22 14:23 71 16 94 03/14/22 14:22 76 21 98 03/14/22 14:20 67 16 86 L 03/14/22 14:18 74 16 97 03/14/22 14:17 84 21 96 03/14/22 14:17 78/51 L 03/14/22 14:16 72 21 94 03/14/22 14:14 102 H 16 92 03/14/22 14:14 117/80 03/14/22 14:01 89 25 H 97 03/14/22 14:01 182/101 H 03/14/22 14:00 88 24 94 03/14/22 14:33 03/14/22 13:42 133/79 03/14/22 13:42 88 25 H 93 03/14/22 13:30 85 15 95 03/14/22 13:13 89 15 93 03/14/22 13:30 03/14/22 12:05 36.5 C 95 H 16 177/88 H 96 O2 Del Method 03/14/22 17:30 Room Air 03/14/22 17:24 Room Air 03/14/22 17:00 Room Air 03/14/22 17:09 Room Air 03/14/22 17:00 Room Air 03/14/22 14:40 Room Air 03/14/22 14:32 Room Air 03/14/22 14:31 Room Air 03/14/22 14:31 03/14/22 14:30 Room Air 03/14/22 14:28 03/14/22 14:26 03/14/22 14:24 03/14/22 14:23 03/14/22 14:23 03/14/22 14:22 03/14/22 14:20 03/14/22 14:18 03/14/22 14:17 03/14/22 14:17 03/14/22 14:16 03/14/22 14:14 Room Air 03/14/22 14:14 03/14/22 14:01 Room Air 03/14/22 14:01 03/14/22 14:00 Room Air 03/14/22 14:33 Room Air 03/14/22 13:42 03/14/22 13:42 Room Air 03/14/22 13:30 Room Air 03/14/22 13:13 Room Air 03/14/22 13:30 Room Air 03/14/22 12:05 Room Air PG Care Time/CCT Total # of Minutes Spent Total Time Spent with Patient: Total time spent is greater than 50% in coordination of care (as documented) at patient's floor/unit and/or counseling patient: Coding Level of Care Code New Pt INP/OBS CONSULT LVL 5, 80 MIN Patient Type New Diagnoses Acute non-ST elevation myocardial infarction (NSTEMI) I21.4 Hypertension I10 Hyperlipidemia E78.5
[2022-03-14] MEDS ORDERED: hydrALAZINE HCL 20 MG/ML VIAL IV PRN (18:21)
[2022-03-14] MEDS: METOPROLOL TARTRATE 25 MG TAB PO SCH (19:44)
[2022-03-14] MEDS: ATORVASTATIN 40 MG TAB PO SCH (19:44)
[2022-03-14] MEDS: TICAGRELOR 90 MG TAB PO SCH (19:45)
[2022-03-14] MEDS: LANTUS PER UNIT CHARGE SQ SCH (20:11)
[2022-03-14 20:26] LABS: Magnesium 1.9 mg/dl (1.7-2.4); Troponin I High Sensitivity 467.3 pg/ml (0-20)
[2022-03-15] MEDS ORDERED: PHARMACY GLYCEMIC MGMT CONSULT PRN (00:01)
[2022-03-15 00:02] LABS: Partial Thromboplastin Ratio 1.1; Partial Thromboplastin Time 30.1 Seconds (21.0-31.0)
[2022-03-15] MEDS ORDERED: HEPARIN SOD (PORCINE) 1000 UNIT/ML IV ONE ×2 (00:15→15:30)
[2022-03-15 06:39] LABS: Basophils # (auto) 0.06 K/uL (0-0.2); Basophils % (auto) 0.7 %; Eosinophils # (auto) 0.12 K/uL (0-0.50); Eosinophils % (auto) 1.3 %; Hematocrit (blood only) 43.5 % (40.1-51.0); Hemoglobin 16.1 g/dl (14.0-18.0); Immature Granulocytes # (auto) 0.03 K/uL (0.00-0.02); Immature Granulocytes % (auto) 0.3 %; Lymphocytes # (auto) 1.81 K/uL (1.2-3.4); Lymphocytes % (auto) 20.3 %; Mean Corpuscular Hemoglobin 33.3 pg (25.0-34.0); Mean Corpuscular Volume 90.1 fL (80.0-100.0); Mean Platelet Volume 10.9 fL (9.4-12.4); Neutrophils % (auto) 68.4 %; Platelet Count 187 K/uL (130-400); RDW Coefficient of Variation 11.9 % (11.5-14.5); RDW Standard Deviation 39.1 fL (36.4-46.3); Red Blood Count 4.83 M/uL (4.63-6.08); White Blood Count 8.92 K/ul (4.8-10.8)
[2022-03-15 07:00] LABS: BUN Creatinine Ratio 16.2 (10-20); Calcium 9.6 mg/dl (8.5-10.1); Chol HDL Ratio 4.7 (0-5); Creatinine Clr Calc Pharmacy 164.4 ml/min; Est GFR (African American) 120.4 ml/min; Est GFR (Non-African American) 103.8 ml/min; Magnesium 1.8 mg/dl (1.7-2.4); Potassium 3.7 mmol/L (3.5-5.1)
[2022-03-15 07:14] LABS: Troponin I High Sensitivity 3205.5 pg/ml (0-20)
[2022-03-15 07:44] LABS: Partial Thromboplastin Ratio 1.2; Partial Thromboplastin Time 32.4 Seconds (21.0-31.0)
[2022-03-15] MEDS: ATORVASTATIN 40 MG TAB PO SCH (07:54)
[2022-03-15] MEDS: METOPROLOL TARTRATE 25 MG TAB PO SCH ×2 (07:54→20:05)
[2022-03-15] MEDS: TICAGRELOR 90 MG TAB PO SCH ×2 (07:54→20:04)
[2022-03-15] MEDS: ASPIRIN 81 MG ECTAB PO SCH (07:54)
[2022-03-15] MEDS: LOSARTAN POTASSIUM 50 MG TAB PO SCH (07:54)
[2022-03-15] MEDS: INSULIN ASPART PER UNIT SC SCH ×4 (08:01→20:05)
[2022-03-15] MEDS: LANTUS PER UNIT CHARGE SQ SCH ×2 (08:02→20:03)
[2022-03-15 08:38] LABS: Estimated Average Glucose 134 mg/dl; Hemoglobin A1C 6.3 % (4.5-5.6)
--- NOTE | 2022-03-15 10:32 | Pharmacy Report ---
Pharmacy Glycemic Short Note 2 - Date of Service March 15, 2022 - Glycemic Short BSG Results (Last 24 hours): 03/14/22 03/14/22 03/14/22 12:51 17:06 19:28 Glucose 166 H POC Glucose 154 H 138 H 03/15/22 03/15/22 06:02 07:09 Glucose 153 H POC Glucose 145 H OUTPATIENT ANTIDIABETIC REGIMEN: * Metformin 500mg daily * A1c = 6.3% 03/15/22 ASSESSMENT: * Type 2 diabetic admitted for NSTEMI * A1c reflects good control with metformin monotherapy prior to admission * Basal bolus SQ regimen initiated last evening using conservative doses given available A1c results and BSGs only in mid-100s * Fasting BSG 145 this AM with 5 units basal on board - will continue low dose basal at this time and consider d/c once metformin resumes * Novolog CF and CR also conservatively dosed as mealtime needs likely low PLAN FOR INPATIENT GLYCEMIC CONTROL: * Hold outpatient oral diabetes medications (metformin) * Basal insulin * Lantus 5 units SQ BID * Bolus insulin * NovoLog per scale ACHS or Q6hrs while NPO * Goal Range: Low 110 mg/dL - High 140 mg/dL * Correction Factor: 25 mg/dL/unit * Nutritional / Prandial insulin per carb ratio of 1 unit per 15 grams CHO consumed
--- NOTE | 2022-03-15 11:59 | Cardiology Progress Note ---
Date of Service March 15, 2022 Assessment & Plan (1) Acute non-ST elevation myocardial infarction (NSTEMI): Plan: Severe multivessel coronary disease including PLASTIC MANAGER of the large obtuse marginal branch and complex RCA, PDA, PLB disease status post PCI of the distal RCA and PDA. Angiographically adequate but suboptimal results. Troponin continued to rise despite significant chest discomfort or EKG changes. Likely just delay from PCI. When his blood pressure is controlled he does not seem to have any chest discomfort. Out of an abundance of caution he will remain on heparin drip until tomorrow. We will discontinue it in the morning and see how he does wit hout heparin with regard to chest discomfort. Then either appropriate for discharge or we will have to return to the Calculation Clerk if he shows evidence of thrombosis. He will remain on dual antiplatelet therapy with aspirin and Brilinta. We will also optimize his guideline directed medical therapy for secondary prevention of coronary disease. Currently heart rate and blood pressure are above target. Continue metoprolol but titrate to achieve target. Continue losartan and statin. (2) New onset left bundle branch block (LBBB): Plan: Occasional/intermittent IVCD likely recurrent left bundle. Does not seem to be rate related. We will continue to monitor. (3) Hypertension: Plan: Blood pressure is above target. We will increase metoprolol tartrate to 50 mg p.o. twice daily. Continue losartan and once his heart rate is at target if we need we can begin low-dose long-acting nitrate. (4) Atherogenic dyslipidemia: Plan: He is high risk. High intensity statin therapy with atorvastatin 40 mg daily. Plan He will remain in the PCU on monitor overnight. Continue heparin drip until the morning at which point we will discontinue. May be appropriate for discharge tomorrow afternoon. He should use his home CPAP if available tonight. Admission and Anticipated Discharge Date Admission Date: March 14, 2022 Subjective Patient had no events overnight. He tells me that he has had difficulty sleeping because the monitor alarms for low oxygen. He does have a history of sleep apnea. He tells me his is bringing his CPAP machine today. He admits to occasional brief episodes of chest tightness which is mild and resolves relatively quickly. In reviewing his records he has blood pressures which are fluctuating from reasonable to elevated. He denies any shortness of breath. No pain at the radial artery access site or the hand. I note that he has not required any morphine. He was given hydralazine 10 mg x 1. Review of Systems Review of Systems: Negative except as per HPI Physical Exam Constitutional: WD/WN, vitals as above (Morbidly obese) Eyes: Extraocular muscles intact. Sclera anicteric. ENMT: external ear and nose normal, oropharynx normal Neck: Thick. No JVD. Respiratory: Clear to auscultation bilaterally. No wheezing, rhonchi, or ra les. Cardiovascular: Regular rate and rhythm. S4 gallop. Do not appreciate any rubs or murmurs. Noted intermittent IVCD on the monitor. Currently narrow complex in sinus rhythm heart rate 88 on my evaluation. Gastrointestinal (Abdomen): Obese. Normal active bowel sounds. Musculoskeletal: no cyanosis or clubbing, extremities motor strength 5/5 (Right radial access site is clean dry and intact. Good distal perfusion) Neurologic: Cognition is intact. Speech is fluent. No focal deficits. Psychiatric: A+Ox3, euthymic affect Results & Data ([facility]) Vital Signs (Past 12 Hours) Vital Signs Temp Pulse Pulse Resp BP Pulse Ox O2 Del Method 03/15/22 10:50 36.5 C 89 19 136/90 96 Room Air 03/15/22 08:00 Room Air 03/15/22 07:08 36.6 C 84 18 156/85 H 94 Room Air 03/15/22 05:05 144/91 H 03/15/22 03:57 36.6 C 81 16 158/95 H 93 Room Air 03/15/22 00:28 82 127/86 03/14/22 23:59 81 18 94 PG Care Time/CCT Total # of Minutes Spent Total Time Spent with Patient: Total time spent is greater than 50% in coordination of care (as documented) at patient's floor/unit and/or counseling patient: Coding [place] [address] SUB INP/OBS CARE 3/50MIN Patient Type Established Medical Decision Making High Complexity Diagnoses Acute non-ST elevation myocardial infarction (NSTEMI) I21.4 New onset left bundle branch block (LBBB) I44.7 Hypertension I10 Atherogenic dyslipidemia E78.5
[2022-03-15] MEDS: HEPARIN SODIUM/DEXTROSE 25,000 UNITS/500 ML BAG IV SCH ×2 (12:31→15:32)
[2022-03-15 15:08] LABS: Partial Thromboplastin Ratio 1.2; Partial Thromboplastin Time 32.9 Seconds (21.0-31.0)
[2022-03-15 21:43] LABS: Partial Thromboplastin Ratio 1.5; Partial Thromboplastin Time 40.3 Seconds (21.0-31.0)
--- NOTE | 2022-03-15 21:59 | Hospitalist Progress Note ---
Date of Service March 15, 2022 Assessment & Plan (1) Acute non-ST elevation myocardial infarction (NSTEMI): Plan: Typical story of exertional chest pain progressively getting worse and now at rest with elevated high-sensitivity troponin consistent with NSTEMI Aspirin 324 mg p.o. given in the ER Ongoing chest pain in the emergency room with elevated BP 182/101 therefore nitroglycerin SL 0.4mg and nitro paste ordered Blood pressure dropped to 78/51 with associated diaphoresis and fatigue with nitroglycerin suggesting right ventricular involvement. Nitro paste was on patient for 3 minutes and removed. 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 Will monitor overight, dc heparin in AM. If pain free off heparin may discharge, IF not, will consider repeat cath, (2) New onset left bundle branch block (LBBB): Plan: New onset compared to EKG from February 04, 2019 (3) Gout: Plan: Continue allopurinol 100 mg p.o. daily (4) Sleep apnea: Plan: CPAP @ 17 cm H2O (5) Diabetes mellitus, type 2: Plan: Repeat HbA1c with a.m. labs Consult pharmacy for glycemic control during admission with insulin Glucose 166 mg/dL on admission (6) GERD (gastroesophageal reflux disease): Plan: Switch omeprazole for pantoprazole 40 mg daily per hospital formulary (7) Hypertension: Plan: Given hypotension with nitroglycerin sublingual tablet will currently discontinue all blood pressure medication (8) KONG (nonalcoholic steatohepatitis): (9) Hypertriglyceridemia: Plan: Lipid panel with a.m. labs Continue gemfibrozil (10) Enlarged prostate: Plan: Prostate pain not fully explored on admission due to current NSTEMI. Bactrim sent in by his primary care provider. Will defer treatment for this pending urinalysis. Plan VTE Prophyalxis - deferred pending Admission and Anticipated Discharge Date Admission Date: March 14, 2022 Subjective Patient rports having no chest pain or SOB. Review of Systems Review of Systems: All systems reviewed & are unremarkable except as noted in HPI & below Physical Exam Physical Exam: Constitutional: WD/WN, vitals as above Eyes: + anicteric sclerae; normal pupil size Respiratory: normal respiratory effort, lungs clear to auscultation Cardiovascular: RRR, no murmur, no edema Gastrointestinal (Abdomen): normal bowel sounds, soft, nontender, no hepatosplenomegaly Musculoskeletal: no cyanosis or clubbing, extremities motor strength 5/5 Skin: no rashes, warm and dry Neurologic: moves all extremities and awake; not confused Psychiatric: A+Ox3, euthymic affect Results & Data Results & Data ([facility]) Vital Signs (Past 12 Hours) Vital Signs Temp Pulse Pulse Resp BP Pulse Ox O2 Del Method 03/15/22 19:49 36.4 C L 88 18 116/90 96 Room Air 03/15/22 15:52 36.5 C 86 20 120/73 95 Room Air 03/15/22 15:44 95 H 03/15/22 10:50 36.5 C 89 19 136/90 96 Room Air PG Care Time/CCT Total # of Minutes Spent Total Time Spent with Patient: Total time spent is greater than 50% in coordination of care (as documented) at patient's floor/unit and/or counseling patient: Coding Level of Care Code 46491 SUB INP/OBS CARE 2/35MIN Diagnoses Acute non-ST elevation myocardial infarction (NSTEMI) I21.4 New onset left bundle branch block (LBBB) I44.7 Gout M10.9 Sleep apnea G47.30 Diabetes mellitus, type 2 E11.9 GERD (gastroesophageal reflux disease) K21.9 Hypertension I10 KONG (nonalcoholic steatohepatitis) K75.81 Hypertriglyceridemia E78.1 Enlarged prostate N40.0
[2022-03-16] MEDS: HEPARIN SODIUM/DEXTROSE 25,000 UNITS/500 ML BAG IV SCH (03:31)
[2022-03-16 04:38] LABS: Hematocrit (blood only) 45.2 % (40.1-51.0); Hemoglobin 16.6 g/dl (14.0-18.0); Mean Corpuscular Hemoglobin 33.3 pg (25.0-34.0); Mean Corpuscular Hgb Conc 36.7 g/dL (32.0-36.0); Mean Corpuscular Volume 90.8 fL (80.0-100.0); Mean Platelet Volume 10.5 fL (9.4-12.4); Platelet Count 184 K/uL (130-400); RDW Coefficient of Variation 11.9 % (11.5-14.5); RDW Standard Deviation 39.4 fL (36.4-46.3); Red Blood Count 4.98 M/uL (4.63-6.08); White Blood Count 6.85 K/ul (4.8-10.8)
[2022-03-16 04:49] LABS: Partial Thromboplastin Ratio 1.5; Partial Thromboplastin Time 41.6 Seconds (21.0-31.0)
[2022-03-16 05:05] LABS: BUN Creatinine Ratio 14.1 (10-20); Calcium 9.5 mg/dl (8.5-10.1); Creatinine Clr Calc Pharmacy 132.2 ml/min; Est GFR (African American) 108.1 ml/min; Est GFR (Non-African American) 93.3 ml/min; Potassium 3.8 mmol/L (3.5-5.1)
[2022-03-16] MEDS: INSULIN ASPART PER UNIT SC SCH ×2 (08:00→11:55)
[2022-03-16] MEDS ORDERED: HEPARIN-STOP ORDER ONE (08:15)
[2022-03-16] MEDS: ATORVASTATIN 40 MG TAB PO SCH (08:47)
[2022-03-16] MEDS: ASPIRIN 81 MG ECTAB PO SCH (08:47)
[2022-03-16] MEDS: LOSARTAN POTASSIUM 50 MG TAB PO SCH (08:47)
[2022-03-16] MEDS: TICAGRELOR 90 MG TAB PO SCH (08:47)
[2022-03-16] MEDS: METOPROLOL TARTRATE 25 MG TAB PO SCH (08:47)
[2022-03-16] MEDS: LANTUS PER UNIT CHARGE SQ SCH (08:52)
--- NOTE | 2022-03-16 12:24 | Cardiology Progress Note ---
Date of Service March 16, 2022 Assessment & Plan (1) Atherogenic dyslipidemia: Plan: High risk. High intensity statin therapy. Atorvastatin 40 mg daily. (2) Acute non-ST elevation myocardial infarction (NSTEMI): Plan: Status post PCI of the RCA and PDA. Heparin drip has been discontinued. He will remain on dual antiplatelet therapy with aspirin and Brilinta. Prior to discharge he is to ambulate. Guideline directed medical therapy will include statin, beta-kike, and angiotensin receptor kike. In addition, I have added isosorbide mononitrate 30 mg daily to help with blood pressure and angina. (3) Hypertension: Plan: Blood pressure is at the upper limit of acceptable. Continue current regimen plus add isosorbide mononitrate. Plan Discharge this afternoon if he can ambulate without symptoms. Obtain card for free/reduced cost Brilinta given his Medicaid status. He will follow-up with me in the cardiology office within 1 to 2 weeks. I should be notified if the patient cannot ambulate without symptoms. Admission and Anticipated Discharge Date Admission Date: March 14, 2022 Subjective Patient feeling well today. Has only been up to the toilet and back. Denies any chest pain or shortness of breath. We discussed hypotension induced by sublingual nitroglycerin in the emergency department. He denied any use of Viagra, Cialis, etc. I have suggested that he could utilize isosorbide mononitrate and he is in agreement. His heparin was stopped earlier this morning and he does not have any symptoms at this time. Review of Systems Review of Systems: Negative except as per HPI Physical Exam Constitutional: WD/WN, vitals as above (Morbidly obese) Eyes: Anicteric. Extraocular muscles intact. ENMT: Oral mucosa is pink, moist, and intact Neck: Thick. No JVD. Respiratory: Clear to auscultation bilaterally. No wheezing, rhonchi, or rales. Cardiovascular: Regular rate and rhythm. S4 gallop. No rubs or murmurs appreciated today. Gastrointestinal (Abdomen): Obese. Normal active bowel sounds. Musculoskeletal: no cyanosis or clubbing, extremities motor strength 5/5 (Radial access site is intact.) Neurologic: Cognition is intact. Speech is fluent. No focal deficits. Psychiatric: A+Ox3, euthymic affect Results & Data ([facility]) Vital Signs (Past 12 Hours) Vital Signs Temp Pulse Pulse Resp BP Pulse Ox O2 Del Method 03/16/22 08:00 36.6 C 69 18 139/84 93 Room Air 03/16/22 07:29 73 03/16/22 04:25 36.8 C 87 20 130/85 96 Room Air PG Care Time/CCT Total # of Minutes Spent Total Time Spent with Patient: Total time spent is greater than 50% in coordination of care (as documented) at patient's floor/unit and/or counseling patient: [place] [address] SUB INP/OBS CARE 2/35MIN Patient Type Established Diagnoses Atherogenic dyslipidemia E78.5 Acute non-ST elevation myocardial infarction (NSTEMI) I21.4 Hypertension I10
[2022-03-16 12:26] LABS: Partial Thromboplastin Time 27.9 Seconds (21.0-31.0)
[2022-03-16] MEDS ORDERED: ISOSORBIDE MONO EXTENDED REL 30 MG TABCR PO SCH (12:30)
--- NOTE | 2022-03-17 19:33 | Discharge Summary ---
Date of Service March 16, 2022 Admission HPI Per Admitting Provider Kavin Browne is a 56 year old male who presents to the ER on advice of his primary care physician due to chest pain. He reports progressively worsening chest pain on exertion over the last year or more. Since it has been going on for such a long time he did not think it was the serious. Usually he walks over 2 miles a day and has been getting chest pain approximately 2 miles into his walk but it was subsequently go away as he walks further. For the last 2 days to a week he has been having chest pain at rest. Occasionally a lot in the morning. He thought it was CPAP related however he did take an aspirin for the last 2 days due to concern about his heart. Chest pain is associated with dizziness, fatigue, diaphoresis and nausea. Radiates to both arms. Currently in the ER is having chest pain radiating to both arms severity 2 out of 10 - this is much better than when he walks around. He denies any palpitations, orthopnea, paroxysmal nocturnal dyspnea, claudication. He reports having diabetes treated with metformin. His last HbA1c in March 2021 was 5.8. He reports hypertriglyceridemia for which he takes gemfibrozil. He reports smoking weed on occasion but no tobacco. He used to chew tobacco but quit 8 years ago. Principal Diagnosis NSTEMI Discharge Exam Constitutional: WD/WN, vitals as above Eyes: + anicteric sclerae; normal pupil size Respiratory: normal respiratory effort, lungs clear to auscultation Cardiovascular: RRR, no murmur, no edema Gastrointestinal (Abdomen): normal bowel sounds, soft, nontender, no hepatosplenomegaly Musculoskeletal: no cyanosis or clubbing, extremities motor strength 5/5 Skin: no rashes, warm and dry Neurologic: moves all extremities and awake; not confused Psychiatric: A+Ox3, euthymic affect Discharge Data Allergies Allergy/AdvReac Type Severity Reaction Status Date / Time amoxicillin Allergy Mild rash, hives Verified 03/14/22 10:01 lisinopril Allergy Mild cough Verified 03/14/22 10:01 Penicillins Allergy Mild rash, hives Verified 03/14/22 10:01 Consultations 03/14/22 13:49 Consult Cardiology Stat 03/14/22 13:58 ED Decision to Admit Stat Procedures Performed Operation Date: 03/14/22 14:30 Actual Procedures p Cineradiography w/Routine Exam - Jonathon Mohan MD, PhD p Cath, Coronaries ONLY (no LV) - Jonathon Mohan MD, PhD s Drug Eluting Stent SGl Vessel - Jonathon Mohan MD, PhD s Drug Eluting Stent each ADDTL Vessel - Jonathon Mohan MD, PhD Ordered Studies 03/14/22 14:28 CL Cath Imgs for PACS use only Stat Hospital Course (1) Acute non-ST elevation myocardial infarction (NSTEMI): On admission: Typical story of exertional chest pain progressively getting worse and now at rest with elevated high-sensitivity troponin consistent with NSTEMI Aspirin 324 mg p.o. given in the ER Ongoing chest pain in the emergency room with elevated BP 182/101 therefore nitroglycerin SL 0.4mg and nitro paste ordered Blood pressure dropped to 78/51 with associated diaphoresis and fatigue with nitroglycerin suggesting right ventricular involvement. Nitro paste was on patient for 3 minutes and removed. 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 Monitored overight, dc heparin in AM of discharge. Patient was pain free and able to ambulate. Patient was discharged at 5 pm on 03/16 Status post PCI of the RCA and PDA.He will remain on dual antiplatelet therapy with aspirin and Brilinta. Guideline directed medical therapy will include statin, beta-kike, and angiotensin receptor kike. In addition, I have added isosorbide mononitrate 30 mg daily to help with blood pressure and angina. He will follow-up in the cardiology office within 1 to 2 weeks. (2) New onset left bundle branch block (LBBB): New onset compared to EKG from February 04, 2019 (3) Gout: Continue allopurinol 100 mg p.o. daily (4) Sleep apnea: CPAP @ 17 cm H2O (5) Diabetes mellitus, type 2: resume home meds (6) GERD (gastroesophageal reflux disease): Switch omeprazole for pantoprazole 40 mg daily per hospital formulary (7) Hypertension: Given hypotension with nitroglycerin sublingual tablet will currently discontinue all blood pressure medication (8) KONG (nonalcoholic steatohepatitis): (9) Hypertriglyceridemia: Lipid panel with a.m. labs Continue gemfibrozil (10) Enlarged prostate: Prostate pain not fully explored on admission due to current NSTEMI. Bactrim sent in by his primary care provider. Will defer treatment for this pending urinalysis. Total Time Total Time Spent Total Time Spent (In Minutes): 60 Discharge Plan Discharge Items Patient Disposition: Home - Self-Care Reason For Visit: NSTEMI Discharge Diagnosis: Non-ST elevation TN Severe CAD status post PCI Condition on Discharge: Good Activity: Per Instructions section Non-emergency contact: Embedded Systems Engineer Call non-emergency contact if: you have any medication questions, your symptoms worsen, your pain is not controlled, you have a fever, your wound has increased redness and your wound has increased drainage Follow-up/Referrals: Jarred Donis MD [Primary Care Provider] - Diet: Carb Consistent or DM2 Addtl Attending Provider Instructions: ACTIVITY RECOMMENDATIONS: It is common to feel weak and fatigue for a few days. * Do not drive or operate any motorized equipment for the next three days. * Limit stair usage (2 or 3 trips a day only) for the next three days. * Do not lift anything heavier than 10 pounds for the next three days. * Do not engage in vigorous exercise or any sports for the next five days. * You may shower the day after your procedure, but do not immerse the area for three days. Cleanse the site gently with soap and water. SPECIAL CARE INSTRUCTIONS: * You may replace the pressure dressing or band-aid the morning after the procedure. * After your procedure, it is normal to have a small bruise or small lump at the site. Examine your site daily for any change in the bruise or lump, redness, swelling, drainage or numbness. Notify your doctor if any change. BLEEDING: * If there is a small amount of bleeding at the site, lie down and apply firm pressure with a clean cloth for ten minutes. When the bleeding stops, lie quietly keeping the procedure limb straight for six hours. Notify your doctor as soon as possible. * If the bleeding does not stop after ten minutes or if there is a large amount of bleeding or spurting, call 911 immediately. Continue to lie down and hold firm pressure until help arrives. SKIN IRRITATION: * You may experience some redness and/or swelling in the area where radiation was administered. If any skin irritation occurs, please contact your family physician. FOLLOW UP VISIT: Keep any scheduled doctor appointments. Pending Studies at Discharge: No Stand-Alone Forms: My [facility], Smoking Cessation Medications and DC Order Prescriptions: New Brilinta 90 mg Tablet 90 mg PO BID Qty: 60 0RF atorvastatin 40 mg Tablet 40 mg PO QAM Qty: 30 0RF metoprolol succinate 50 mg tablet extended release 24 hr 50 mg PO PM Qty: 30 0RF isosorbide mononitrate 30 mg tablet extended release 24 hr 30 mg PO DAILY Qty: 30 0RF aspirin 81 mg Tablet,Delayed Release (Dr/Ec) 81 mg PO QAM Qty: 30 0RF Continued omeprazole 20 mg capsule,delayed release(DR/EC) 20 mg PO DAILY Qty: 90 3RF (DME) CPAP Machine Misc See Rx Instructions .Route Qty: 1 0RF Rx Instructions: As directed metformin 500 mg tablet extended release 24 hr 500 mg PO DAILY Qty: 90 3RF losartan 100 mg tablet 100 mg PO DAILY Qty: 90 3RF cetirizine 10 mg tablet 10 mg PO QAM Qty: 30 Airborne (ascorbate sodium) 333-1.7 mg Tablet,Chewable 1.7 mg PO DAILY allopurinol 100 mg tablet 100 mg PO DAILY Discontinued meloxicam 15 mg tablet 15 mg PO DAILY PRN (Reason: swelling) Qty: 90 1RF gemfibrozil 600 mg tablet 600 mg PO QPM Discharge Orders: Discharge Order (Routine); Ordered 03/16/22 Ordered By: Mike To/Other Patient Handouts: Managing Type 2 Diabetes, 5 Steps for Eating Healthier Admission Data Admit Date/Time: 03/14/22 14:59 Attending Provider: Mike Romero Admit Provider: Agus Hernandez Primary Care Provider: Jarred Donis Other Providers: Sami Juarez ; Agus Hernandez Other Interventions: Discharge Summary Assessment (RN) Last Done: 03/16/22 16:43 Coding Level of Care Code HOSP INP/OBS DISCH >30 MIN Diagnoses Acute non-ST elevation myocardial infarction (NSTEMI) I21.4 New onset left bundle branch block (LBBB) I44.7 Gout M10.9 Sleep apnea G47.30 Diabetes mellitus, type 2 E11.9 GERD (gastroesophageal reflux disease) K21.9 Hypertension I10 KONG (nonalcoholic steatohepatitis) K75.81 Hypertriglyceridemia E78.1 Enlarged prostate N40.0
== END 2022-03-16 17:17 | disposition home or self-care (01) | DRG 247 ==
LOC: ED 12:04 → OR 14:33 → 2E 14:59 → SUATTDRO 14:59
PROC: CLB.CCO (2022-03-14 14:30)

== ENCOUNTER 2022-11-11 10:22 | Observation (INO) ==
[2022-11-11 11:30] LABS: Basophils # (auto) 0.05 K/uL (0.00-0.20); Basophils % (auto) 0.7 %; Eosinophils # (auto) 0.09 K/uL (0.00-0.50); Eosinophils % (auto) 1.3 %; Hematocrit (blood only) 50.2 % (42.0-52.0); Immature Granulocytes # (auto) 0.05 K/uL (0.01-0.20); Immature Granulocytes % (auto) 0.7 %; Lymphocytes # (auto) 1.74 K/uL (1.20-3.40); Lymphocytes % (auto) 25.2 %; Mean Corpuscular Hgb Conc 35.9 g/dL (32.0-36.0); Mean Corpuscular Volume 89.2 fL (80.0-100.0); Mean Platelet Volume 10.4 fL (9.4-12.4); Monocytes # (auto) 0.59 K/uL (0.11-0.59); Monocytes % (auto) 8.5 %; Neutrophils # (auto) 4.39 K/uL (1.40-6.50); Neutrophils % (auto) 63.6 %; Platelet Count 186 K/uL (130-400); RDW Coefficient of Variation 12.6 % (11.5-14.5); RDW Standard Deviation 41.2 fL (36.4-46.3); Red Blood Count 5.63 M/uL (4.70-6.10); White Blood Count 6.91 K/ul (4.8-10.8)
[2022-11-11 11:51] LABS: Albumin Globulin Ratio 1.4 (0.9-2); Albumin Level 5.2 gm/dl (3.4-5.0); BUN Creatinine Ratio 19.1 (10-20); Bilirubin,Total 1.8 mg/dl (0.2-1.0); Calcium 10.4 mg/dl (8.6-10.3); Creatinine Clr Calc Pharmacy 124.8 ml/min; Est GFR (African American) 104.6 ml/min; Est GFR (Non-African American) 90.3 ml/min; Globulin 3.7 gm/dl (2.5-4.0); Total Protein 8.9 gm/dl (6.0-8.3)
[2022-11-11 11:56] LABS: Troponin I High Sensitivity 12.5 pg/ml (0-20)
[2022-11-11 12:00] LABS: Partial Thromboplastin Ratio 0.9; Partial Thromboplastin Time 25.9 Seconds (21.0-31.0); Prothrombin Time 10.9 Seconds (9.0-12.0)
--- NOTE | 2022-11-11 12:01 | Emergency Department Note ---
Impression & Plan Chest pain ED Provider Note HISTORY OF PRESENT ILLNESS: Patient is a 57-year-old male presenting with chest pain. Patient reports he has had intermittent chest pain for the last 3 to 5 days. Reports that he has chest pain anytime he gets up and walks a few steps. He reports he will take a few steps and have chest pain and feels short of breath and become diaphoretic. He reports he sits down and the chest pain dissipates. He reports this feels similar to the last time he had an NSTEMI and required cardiac stenting. He is on Brilinta. Reports that he last had stents placed in March 2022. Denies any recent cough or fevers. Denies any nausea or vomiting. Is chest pain-free on evaluation resting in bed on arrival to the ER ROS: as above PHYSICAL EXAM: Constitutional: Patient appears in no acute distress. HENT: Head: Normocephalic and atraumatic. Eyes: EOMI, PERRL Mouth/Throat: Mucous membranes moist. Neck: Trachea midline. Neck supple. Cardiovascular: RRR, No murmurs, rubs or gallops. Intact distal pulses. Pulmonary/Chest: No respiratory distress. Breath sounds clear and equal bilaterally. No wheezes or rales. Abdominal: Abdomen soft, no tenderness, rebound or guarding. Musculoskeletal: No edema, tenderness or deformity noted. Skin: Warm and dry. No rash, erythema, pallor or cyanosis Psychiatric: Appropriate mood and affect for situation. Neurological: Alert and keenly responsive. CN II-XII grossly intact, moving all extremities equally and fully. MDM: - Vitals signs stable. - History obtained via patient. Patient presents with chest pain. Patient reports intermittent chest pain for the last 3 to 5 days. Reports anytime he gets up and exerts himself he has diffuse chest pain and shortness of breath and diaphoresis. He reports this feels similar to his NSTEMI that required stents back in March 2022. He denies any fevers. He is on Brilinta. - Chronic conditions affecting care: HTN; HLD; CAD (s/p PCI) - Differential diagnoses include, but are not limited to: Acute coronary syndrome; pulmonary embolism; dissection; tension pneumothorax; esophageal rupture; pneumonia - Order placed for continuous cardiac monitoring. At this time, monitor showed rate of 80 bpm with normal sinus rhythm, per my interpretation. - External medical records reviewed. Cardiac catheterization from 03/14/2022 was reviewed. Patient had 90% stenosis of the circumflex and 100% stenosis of the OM1 - EKG reviewed by myself showed normal sinus rhythm. Rate 84 bpm. QTc 470. Noted to have a left bundle branch block. This left bundle has been present on previous EKGs. - Laboratory workup interpreted by myself showed normal WBC; stable electrolytes; normal troponin - CXR negative for pneumonia, per my interpretation - Patient is chest pain free at rest, but has his burning chest pain in just taking a few steps. - Heart score 5 (History +2 highly suspicious; EKG +0; Age +1; Risk factors +2; Initial troponin +0), amounting to a moderate score. - Discussed case with shipyard painter helper credit control administrator, Dr. Torres. He reports patient may need a cath during his admission. - Discussion was had with director of social services about patient's case and need for admission - Hospitalist consulted for admission - [facility] and management. ASSESSMENT AND PLAN: Diagnosis: chest pain Plan: admit Past Med/Surg History Medical History (Updated 11/11/22 @ 13:49 by Adriana Barbosa MD) BPH (benign prostatic hyperplasia) Coronary artery disease DM2 (diabetes mellitus, type 2) Genitofemoral neuralgia of left side GERD (gastroesophageal reflux disease) controlled Gout History of alcohol abuse History of non-ST elevation myocardial infarction (NSTEMI) March 2022 Mediastinitis KONG (nonalcoholic steatohepatitis) Prostatitis Unstable angina Surgical History History of arthroscopy of left knee History of bilateral inguinal hernia repair History of colonoscopy History of difficult intubation Left knee scope, LMM, debridement, loose body removal: 10/31/17: Grade 2 view, Glidescope#4, ETT 7.5 at [facility] History of umbilical hernia repair History of wisdom tooth extraction Status post correction of deviated nasal septum Stented coronary artery PCI of the distal RCA and PDA with 2 MAYRA Family History Father Cancer Mother FH: kidney cancer Heart disease Family history of diabetes mellitus Other No family history of adverse response to anesthesia Social History Smoking Status: Never smoker Second Hand Exposure: No; Do You Dip or Chew Tobacco: No; Hx Alcohol Use: No (Abstaining) Hx Substance Use: Yes Preferred Language: Tristanian Communication Ability: Effective Visual Impairment: No Limitations Hearing Ability: Normal Copyright Manager Required: No Beliefs That Will Affect Care: None marital status: Single Current Living Situation: Spouse Current Living Situation Comment: Lives with mom 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 Safe at Home: Yes Assistive Devices: CPAP Allergies Allergies Allergy/AdvReac Type Severity Reaction Status Date / Time amoxicillin Allergy Mild rash, hives Verified 11/11/22 12:05 lisinopril Allergy Mild cough Verified 11/11/22 12:05 Penicillins Allergy Mild rash, hives Verified 11/11/22 12:05 Home Meds Home Medications Medication Instructions Recorded Confirmed mv-min-vit C-ascorb 1.7 mg PO DAILY 12/18/18 11/11/22 Sd-Zrf-Isf-herb #124 333 mg-1.7 mg chewable tablet (Airborne (ascorbate sodium)) colchicine (gout) 0.6 mg tablet 0.6 mg PO BID PRN gout 06/22/22 11/11/22 allopurinol 100 mg tablet 200 mg PO QAM 11/11/22 11/11/22 empagliflozin 10 mg tablet 10 mg PO HS 11/11/22 11/11/22 (Jardiance) isosorbide mononitrate 30 mg 30 mg PO PM 11/11/22 11/11/22 tablet,extended release 24 hr losartan 100 mg tablet 100 mg PO PM 11/11/22 11/11/22 metformin 500 mg tablet,extended 500 mg PO HS 11/11/22 11/11/22 release 24 hr omeprazole 20 mg capsule,delayed 20 mg PO QAM 11/11/22 11/11/22 release Previous Rx's Medication Instructions Recorded CPAP Machine #1 ea 08/06/21 blood sugar diagnostic (OneTouch #50 ea 03/26/22 Verio test strips) blood-glucose meter (OneTouch #1 ea 03/26/22 Verio Meter) lancets 33 gauge (OneTouch Delica #100 ea 03/26/22 Lancets) aspirin 81 mg tablet,delayed 81 mg PO QAM #90 tabs 04/01/22 release blood pressure test kit-large #1 ea 04/01/22 blood pressure kit-extra large #1 ea 04/03/22 cetirizine 10 mg tablet 10 mg PO QAM #90 tabs 09/04/22 atorvastatin 40 mg tablet 40 mg PO QAM #90 tabs 09/30/22 ticagrelor 90 mg tablet (Brilinta) 90 mg PO BID #90 tabs 09/30/22 metoprolol succinate 50 mg 50 mg PO PM #90 tabs 10/09/22 tablet,extended release 24 hr Results & Data (ED) Vital Signs Vital Signs - 24 hr 11/11/22 10:49 11/11/22 10:23 11/11/22 10:23 Temperature 36.7 C Temperature Source Temporal Artery Scan Pulse Rate 82 Pulse Rate [Apical] 82 Pulse Rhythm [Apical] Regular Pulse Strength [Apical] Normal Respiratory Rate 18 20 Respiratory Effort / Characteristics Non-Labored Non-Labored Spontaneous Respiratory Depth Normal Normal Respiratory Pattern Regular Blood Pressure 155/97 H Blood Pressure [Left Arm] 158/103 H Blood Pressure Mean 116 Blood Pressure Mean [Left Arm] 121 Blood Pressure Position Sitting Blood Pressure Position [Left Arm] Pulse Oximetry 97 97 Oxygen Delivery Method Room Air Room Air Room Air Oxygen Flow Rate 97 Sepsis Recent Fever Within 48 Hours No Sepsis New/Unexplained Change in Mental Status No Sepsis Action Taken by Nursing No Action Required 11/11/22 10:56 11/11/22 12:40 11/11/22 11:23 Temperature Temperature Source Pulse Rate 88 79 Pulse Rate [Apical] Pulse Rhythm [Apical] Pulse Strength [Apical] Respiratory Rate 20 Respiratory Effort / Characteristics Respiratory Depth Respiratory Pattern Blood Pressure Blood Pressure [Left Arm] Blood Pressure Mean Blood Pressure Mean [Left Arm] Blood Pressure Position Blood Pressure Position [Left Arm] Pulse Oximetry 97 96 Oxygen Delivery Method Room Air Room Air Oxygen Flow Rate Sepsis Recent Fever Within 48 Hours Sepsis New/Unexplained Change in Mental Status Sepsis Action Taken by Nursing 11/11/22 12:30 Temperature Temperature Source Pulse Rate Pulse Rate [Apical] 84 Pulse Rhythm [Apical] Regular Pulse Strength [Apical] Normal Respiratory Rate 20 Respiratory Effort / Characteristics Non-Labored Spontaneous Respiratory Depth Normal Respiratory Pattern Regular Blood Pressure Blood Pressure [Left Arm] 120/99 Blood Pressure Mean Blood Pressure Mean [Left Arm] 106 Blood Pressure Position Blood Pressure Position [Left Arm] Sitting Pulse Oximetry 97 Oxygen Delivery Method Room Air Oxygen Flow Rate Sepsis Recent Fever Within 48 Hours Sepsis New/Unexplained Change in Mental Status Sepsis Action Taken by Nursing Laboratory Data 11/11/22 11:00 11/11/22 11:00 Lab Results 11/11/22 11/11/22 11/11/22 Range/Units 11:00 11:00 11:00 WBC 6.91 (4.8-10.8) K/ul RBC 5.63 (4.70-6.10) M/uL Hgb 18.0 (14.0-18.0) g/dl Hct 50.2 (42.0-52.0) % MCV 89.2 (80.0-100.0) fL MCH 32.0 (25.0-34.0) pg MCHC 35.9 (32.0-36.0) g/dL RDW Std Deviation 41.2 (36.4-46.3) fL RDW Coeff of [place] 12.6 (11.5-14.5) % Plt Count 186 (130-400) K/uL MPV 10.4 (9.4-12.4) fL Immature Gran % (Auto) 0.7 % Neut % (Auto) 63.6 % Lymph % (Auto) 25.2 % [place] % (Auto) 8.5 % Eos % (Auto) 1.3 % Baso % (Auto) 0.7 % Neut # (Auto) 4.39 (1.40-6.50) K/uL Lymph # (Auto) 1.74 (1.20-3.40) K/uL [place] # (Auto) 0.59 (0.11-0.59) K/uL Eos # (Auto) 0.09 (0.00-0.50) K/uL Baso # (Auto) 0.05 (0.00-0.20) K/uL Immature Gran # (Auto) 0.05 (0.01-0.20) K/uL PT 10.9 (9.0-12.0) Seconds INR 1.0 (0.9-1.1) APTT 25.9 (21.0-31.0) Seconds PTT Ratio 0.9 Sodium 136 (136-145) mmol/L Potassium 4.0 (3.5-5.1) mmol/L Chloride 101 (98-107) mmol/L Carbon Dioxide 26 (21-32) mmol/L Anion Gap 9 (3-11) BUN 18 (6-23) mg/dl Creatinine 0.94 (0.6-1.4) mg/dl Est Cr Clr Drug Dosing 124.8 ml/min Est GFR ( Amer) 104.6 ml/min Est GFR (Non-Af Amer) 90.3 ml/min BUN/Creatinine Ratio 19.1 (10-20) Glucose 130 H (70-99(Fasting)) mg/dl Calcium 10.4 H (8.6-10.3) mg/dl Total Bilirubin 1.8 H (0.2-1.0) mg/dl AST 23 (13-39) U/L ALT 32 (7-52) U/L Alkaline Phosphatase 98 (34-104) U/L Troponin I High Sens 12.5 (0-20) pg/ml Total Protein 8.9 H (6.0-8.3) gm/dl Albumin 5.2 H (3.4-5.0) gm/dl Globulin 3.7 (2.5-4.0) gm/dl Albumin/Globulin Ratio 1.4 (0.9-2) Imaging Data Radiologist's Impression: Chest X-Ray 11/11/22 10:56 XR chest 1V portable HISTORY: 57 years-old Male Chest pain, nonspecific acute chest pain with nausea COMPARISON: 06/22/2022 TECHNIQUE: AP view of the chest FINDINGS: Cardiomediastinal and hilar silhouettes are within normal limits. No pneumothorax, pleural effusion or airspace consolidation. Mild lateral left lung base opacities suggest atelectasis versus scarring. Degenerative changes of the shoulders and spine. Healed chronic left mid articular fracture deformity. IMPRESSION: No acute process. ACT 112: Negative or not required by law. The above report was generated using voice recognition software. It may contain grammatical, syntax or spelling errors. Electronically signed by: Italo Polo M.D. 11/11/2022 12:42 PM Discharge Plan Visit Data Chief Complaint: Chest Pain Stated Complaint: CHEST PAIN ONGOING ED Provider: Adriana Barbosa Discharge Problem: Chest pain Forms Stand Alone Forms: [facility] Prescriptions Prescriptions: No Action (DME) CPAP Machine Misc See Rx Instructions .Route Qty: 1 0RF Rx Instructions: As directed (DME) lancets [OneTouch Delica Lancets] 33 gauge [facility] [place] See Rx Instructions .Route Qty: 100 5RF Rx Instructions: once daily and PRN (DME) blood-glucose meter [OneTouch Verio Meter] [facility] See Rx Instructions .Route Qty: 1 0RF Rx Instructions: once daily PRN (DME) OneTouch Verio test strips Strip See Rx Instructions .Route Qty: 50 5RF Rx Instructions: once daily and PRN (max 3 tests/day) (DME) blood pressure kit-extra large Kit See Rx Instructions .Route Qty: 1 0RF Rx Instructions: As directed. Manual blood pressure cuff cetirizine 10 mg tablet 10 mg PO QAM Qty: 90 3RF atorvastatin 40 mg tablet 40 mg PO QAM Qty: 90 3RF Brilinta 90 mg tablet 90 mg PO BID Qty: 90 3RF metoprolol succinate 50 mg tablet extended release 24 hr 50 mg PO PM Qty: 90 3RF (DME) blood pressure test kit-large Kit See Rx Instructions .Route Qty: 1 0RF Rx Instructions: As directed aspirin 81 mg tablet,delayed release (DR/EC) 81 mg PO QAM Qty: 90 3RF Airborne (ascorbate sodium) 333-1.7 mg Tablet,Chewable 1.7 mg PO DAILY colchicine (gout) 0.6 mg tablet 0.6 mg PO BID PRN (Reason: gout) isosorbide mononitrate 30 mg tablet extended release 24 hr 30 mg PO PM allopurinol 100 mg tablet 200 mg PO QAM omeprazole 20 mg capsule,delayed release(DR/EC) 20 mg PO QAM losartan 100 mg tablet 100 mg PO PM metformin 500 mg tablet extended release 24 hr 500 mg PO HS Jardiance 10 mg tablet 10 mg PO HS Referrals Referrals: Jarred Donis MD [Primary Care Provider] -
--- NOTE | 2022-11-11 12:22 | Electrocardiogram Report ---
Test Reason : Blood Pressure : / mmHG Vent. Rate : 084 BPM Atrial Rate : 084 BPM P-R Int : 194 ms QRS Dur : 164 ms QT Int : 398 ms P-R-T Axes : 011 -27 127 degrees QTc Int : 470 ms Normal sinus rhythm Left bundle branch block Abnormal ECG When compared with ECG of 22-JUN-2022 10:05, No significant change was found Confirmed by Etienne Torres ([id number]) on 11/11/2022 12:21:39 PM Referred By: REFERRED SELF Confirmed By:Etienne Torres
--- NOTE | 2022-11-11 12:43 | XRay Report ---
XR chest 1V portable HISTORY: 57 years-old Male Chest pain, nonspecific acute chest pain with nausea COMPARISON: 06/22/2022 TECHNIQUE: AP view of the chest FINDINGS: Cardiomediastinal and hilar silhouettes are within normal limits. No pneumothorax, pleural effusion o r airspace consolidation. Mild lateral left lung base opacities suggest atelectasis versus scarring. Degenerative changes of the shoulders and spine. Healed chronic left mid articular fracture deformity . IMPRESSION: No acute process. ACT 112: Negative or not required by law. The above report was generated using voice recognition software. It may contain grammatical, syntax o r spelling errors. Electronically signed by: Italo Polo M.D. 11/11/2022 12:42 PM
--- NOTE | 2022-11-11 13:51 | History & Physical Report ---
Date of Service November 11, 2022 Assessment & Plan (1) Chest pain: Plan: Suspected unstable angina given progressively worsening exertional chest pain with known coronary artery disease which feels like his prior GA. Missed his morning medications therefore will prescribe these now. Will defer heparin IV drip unless significant troponin elevation ASA, Brillinta, metoprolol succinate, losartan, ISMN, atorvastatin Consult cardiology, NPO after midnight for cardiac catheterization tomorrow. (2) Sleep apnea: Plan: CPAP HS (3) Diabetes mellitus, type 2: Plan: Hemoglobin A1C 6.8 in July Hold metformin for cardiac cath Continue Jardiance 10mg HS Novolog: --Goal BSG Range: Low 110 mg/dL, High 140 mg/dL --Correction Factor: 25 mg/dL/unit --Carbohydrate ratio = 15 g/unit --BSGs ACHS if eating, q6h if npo (4) Gout: Plan: Chronic, not acute Continue allopurinol (5) Hypertension: Plan: Continue losartan, metoprolol succinate and ISMN (6) BPH (benign prostatic hyperplasia): Plan: On no treatment for this, monitor for symptoms/sign urine retention (7) History of non-ST elevation myocardial infarction (NSTEMI): (8) Coronary artery disease: Plan VTE Prophylaxis - deferred pending need for heparin drip Diet - heart healthy, T2DM, NPO after midnight Disposition - admit to PCU Admission and Anticipated Discharge Date Admission Date: November 11, 2022 History of Present Illness Chief Complaint: Chest pain Primary Care Provider: Jarred Donis MD Kavin Browne is a 57 year old male who presents to the ER with chest pain. He reports exertional substernal chest pain radiating to shoulders starting 5 days ago getting progressively worse on less exertion with longest pain lasting for 10 minutes. Now having pain with movement of only 10 feet. Burning sensation. Current severity 1/10, at worst 10/10. Associated nausea, diaphoresis and shortness of breath. Feels like his previous NSTEMI in March. He denies any acid taste in his mouth of relationship to food. He is compliant with all his medication except he missed his morning medication today. Last cardiac catheterization was in March 14 for NSTEMI with two culprit lesions stented; 1) Distal RCA, bifurcation into proximal PDA and posterior lateral branch 2)Ostial to proximal PDA. He had residual severe multivessel coronary artery disease. Apparent chronic total occlusion of the large OM branch of the circumflex and complex disease of the distal RCA, PDA, and posterolateral branch. Suboptimal angiographic results in the distal RCA in the short unstented intervening segment. He had been doing well from a cardiac standpoint without chest pain or shortness of breath up until the last 5 days. Allergies Allergy/AdvReac Type Severity Reaction Status Date / Time amoxicillin Allergy Mild rash, hives Verified 11/11/22 12:05 Penicillins Allergy Mild rash, hives Verified 11/11/22 12:05 lisinopril AdvReac Mild cough Verified 11/11/22 14:25 Home Medications Medication Instructions Recorded Confirmed Type mv-min-vit C-ascorb 1.7 mg PO DAILY 12/18/18 11/11/22 History Mw-Hdn-Ywo-herb #124 333 mg-1.7 mg chewable tablet (Airborne (ascorbate sodium)) CPAP Machine #1 ea 08/06/21 07/17/22 Rx blood sugar diagnostic (OneTouch #50 ea 03/26/22 07/17/22 Rx Verio test strips) blood-glucose meter (OneTouch #1 ea 03/26/22 07/17/22 Rx Verio Meter) lancets 33 gauge (OneTouch Delica #100 ea 03/26/22 07/17/22 Rx Lancets) aspirin 81 mg tablet,delayed 81 mg PO QAM #90 tabs 04/01/22 11/11/22 Rx release blood pressure test kit-large #1 ea 04/01/22 07/17/22 Rx blood pressure kit-extra large #1 ea 04/03/22 07/17/22 Rx colchicine (gout) 0.6 mg tablet 0.6 mg PO BID PRN gout 06/22/22 11/11/22 History cetirizine 10 mg tablet 10 mg PO QAM #90 tabs 09/04/22 11/11/22 Rx atorvastatin 40 mg tablet 40 mg PO QAM #90 tabs 09/30/22 11/11/22 Rx ticagrelor 90 mg tablet (Brilinta) 90 mg PO BID #90 tabs 09/30/22 11/11/22 Rx metoprolol succinate 50 mg 50 mg PO PM #90 tabs 10/09/22 11/11/22 Rx tablet,extended release 24 hr allopurinol 100 mg tablet 200 mg PO QAM 11/11/22 11/11/22 History empagliflozin 10 mg tablet 10 mg PO HS 11/11/22 11/11/22 History (Jardiance) isosorbide mononitrate 30 mg 30 mg PO PM 11/11/22 11/11/22 History tablet,extended release 24 hr losartan 100 mg tablet 100 mg PO QAM 11/11/22 11/11/22 History metformin 500 mg tablet,extended 500 mg PO QAM 11/11/22 11/11/22 History release 24 hr omeprazole 20 mg capsule,delayed 20 mg PO QAM 11/11/22 11/11/22 History release Past Med/Surg History Medical History (Updated 11/11/22 @ 13:49 by Adriana Barbosa MD) BPH (benign prostatic hyperplasia) Coronary artery disease DM2 (diabetes mellitus, type 2) Genitofemoral neuralgia of left side GERD (gastroesophageal reflux disease) controlled Gout History of alcohol abuse History of non-ST elevation myocardial infarction (NSTEMI) March 2022 Mediastinitis KONG (nonalcoholic steatohepatitis) Prostatitis Unstable angina Surgical History History of arthroscopy of left knee History of bilateral inguinal hernia repair History of colonoscopy History of difficult intubation Left knee scope, LMM, debridement, loose body removal: 10/31/17: Grade 2 view, Glidescope#4, ETT 7.5 at [facility] History of umbilical hernia repair History of wisdom tooth extraction Status post correction of deviated nasal septum Stented coronary artery PCI of the distal RCA and PDA with 2 MAYRA Family History Father Cancer Mother FH: kidney cancer Heart disease Family history of diabetes mellitus Other No family history of adverse response to anesthesia Social History Smoking Status: Never smoker Second Hand Exposure: No; Do You Dip or Chew Tobacco: No; Hx Alcohol Use: No Hx Substance Use: No Preferred Language: Czech Communication Ability: Effective Visual Impairment: No Limitations Hearing Ability: Normal 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 Beliefs That Will Affect Care: None marital status: Single Current Living Situation: Significant Other Current Living Situation Comment: Lives with mom 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 Other Information That Helps Us Care for You: No Feels Safe at Home: Yes Safety Concerns: Feels Safe At This Time Assistive Devices: CPAP Assistive Devices Comment: Home CPAP with patient Review of Systems Review of Systems: All systems reviewed & are unremarkable except as noted in HPI & below Physical Exam Constitutional: WD/WN, vitals as above ENMT: external ear and nose normal, oropharynx normal Respiratory: normal respiratory effort, lungs clear to auscultation Cardiovascular: RRR, no murmur, no edema Gastrointestinal (Abdomen): normal bowel sounds, soft, nontender, no hepatosplenomegaly Musculoskeletal: no cyanosis or clubbing, extremities motor strength 5/5 Skin: no rashes, warm and dry Neurologic: moves all extremities and awake; not confused Psychiatric: A+Ox3, euthymic affect Results & Data Results & Data Vital Signs (Past 12 Hours) Vital Signs Temp Pulse Pulse Resp BP BP Pulse Ox 11/11/22 12:30 84 20 120/99 97 11/11/22 11:23 96 11/11/22 12:40 79 11/11/22 10:56 88 20 97 11/11/22 10:23 82 20 158/103 H 97 11/11/22 10:23 11/11/22 10:49 36.7 C 82 18 155/97 H 97 O2 Del Method O2 Flow Rate 11/11/22 12:30 Room Air 11/11/22 11:23 Room Air 11/11/22 12:40 11/11/22 10:56 Room Air 11/11/22 10:23 Room Air 11/11/22 10:23 Room Air 97 11/11/22 10:49 Room Air Laboratory Results Abnormal lab results 11/11/22 11/11/22 Range/Units 11:00 Unknown Glucose 130 H (70-99(Fasting)) mg/dl Calcium 10.4 H (8.6-10.3) mg/dl Total Bilirubin 1.8 H (0.2-1.0) mg/dl Troponin I High Sens 24.4 H D (0-20) pg/ml Total Protein 8.9 H (6.0-8.3) gm/dl Albumin 5.2 H (3.4-5.0) gm/dl Diagnostic Findings XR chest 1V portable HISTORY: 57 years-old Male Chest pain, nonspecific acute chest pain with nausea COMPARISON: 06/22/2022 TECHNIQUE: AP view of the chest FINDINGS: Cardiomediastinal and hilar silhouettes are within normal limits. No p neumothorax, pleural effusion or airspace consolidation. Mild lateral left lung base opacities suggest atelectasis versus scarring. Degenerative changes of the shoulders and spine. Healed chronic left mid articular fracture deformity. IMPRESSION: No acute process. Medications Administered ER Medications Given: None ECG Rate (beats per minute): 84 Rhythm: normal sinus Findings: + LBBB Comparison ECG Date: from (June 22, 2022) Change: no significant change Code Status & VTE Plan Code Status Full VTE Prophylaxis Plan VTE Prophylaxis will be ordered: Yes PG Care Time/CCT Total # of Minutes Spent Total Time Spent with Patient: Total time spent is greater than 50% in coordination of care (as documented) at patient's floor/unit and/or counseling patient: Coding Level of Care Code 20996 INT INP/OBS CARE 3/75MIN Diagnoses Chest pain R07.9 Sleep apnea G47.30 Diabetes mellitus, type 2 E11.9 Gout M10.9 Hypertension I10 BPH (benign prostatic hyperplasia) N40.0 History of non-ST elevation myocardial infarction (NSTEMI) I25.2 Coronary artery disease I25.10
[2022-11-11] MEDS ORDERED: ASPIRIN 81 MG ECTAB PO STA (14:22)
[2022-11-11] MEDS ORDERED: TICAGRELOR 90 MG TAB PO STA (14:22)
[2022-11-11] MEDS ORDERED: PANTOprazole 40 MG TAB PO STA (14:22)
[2022-11-11] MEDS ORDERED: LOSARTAN POTASSIUM 50 MG TAB PO STA (14:24)
[2022-11-11] MEDS ORDERED: allopurinoL 100 MG TAB PO STA (14:24)
[2022-11-11] MEDS ORDERED: ATORVASTATIN 40 MG TAB PO STA (14:31)
[2022-11-11 14:46] LABS: Troponin I High Sensitivity 24.4 pg/ml (0-20)
[2022-11-11] MEDS ORDERED: GLUCAGON FOR INJ 1 MG VIAL SQ PRN (14:57)
[2022-11-11] MEDS ORDERED: GLUCOSE 40% GEL 15 GM TUBE PO PRN (14:57)
[2022-11-11] MEDS ORDERED: GLUCOSE 10 TAB/TUBE PO PRN (14:57)
[2022-11-11] MEDS ORDERED: NITROGLYCERIN SL 0.4 MG/TAB TAB SL PRN (14:57)
[2022-11-11] MEDS ORDERED: CARBOHYDRATES FOR HYPOGLYCEMIA PO PRN (14:57)
[2022-11-11] MEDS ORDERED: DEXTROSE 50% 50 ML SYRINGE IV PRN (14:57)
[2022-11-11 16:34] LABS: Magnesium 2.2 mg/dl (1.7-2.4)
[2022-11-11] MEDS: INSULIN ASPART PER UNIT CHARGE SC SCH ×2 (18:18→20:57)
[2022-11-11] MEDS: TICAGRELOR 90 MG TAB PO SCH (20:56)
[2022-11-11] MEDS ORDERED: ISOSORBIDE MONO EXTENDED REL 30 MG TABCR PO SCH (21:00)
[2022-11-11] MEDS ORDERED: METOPROLOL SUCC 50MG EXT REL TAB PO SCH (21:00)
[2022-11-11] MEDS ORDERED: LANTUS PER UNIT CHARGE SQ SCH (21:00)
[2022-11-11] MEDS ORDERED: LOSARTAN POTASSIUM 50 MG TAB PO SCH (21:00)
[2022-11-11] MEDS ORDERED: EMPAGLIFLOZIN 10 MG TAB PO SCH (21:00)
[2022-11-12 06:28] LABS: Hematocrit (blood only) 47.1 % (42.0-52.0); Hemoglobin 16.6 g/dl (14.0-18.0); Mean Corpuscular Hemoglobin 31.6 pg (25.0-34.0); Mean Corpuscular Hgb Conc 35.2 g/dL (32.0-36.0); Mean Corpuscular Volume 89.7 fL (80.0-100.0); Mean Platelet Volume 10.1 fL (9.4-12.4); Platelet Count 194 K/uL (130-400); RDW Coefficient of Variation 12.8 % (11.5-14.5); RDW Standard Deviation 41.6 fL (36.4-46.3); Red Blood Count 5.25 M/uL (4.70-6.10); White Blood Count 8.01 K/ul (4.8-10.8)
[2022-11-12 06:41] LABS: BUN Creatinine Ratio 21.4 (10-20); Calcium 9.4 mg/dl (8.6-10.3); Creatinine Clr Calc Pharmacy 140.6 ml/min; Est GFR (African American) 113.4 ml/min; Est GFR (Non-African American) 97.9 ml/min; Magnesium 2.1 mg/dl (1.7-2.4)
[2022-11-12] MEDS: INSULIN ASPART PER UNIT CHARGE SC SCH ×3 (06:44→17:54)
[2022-11-12 06:55] LABS: Troponin I High Sensitivity 138.7 pg/ml (0-20)
[2022-11-12] MEDS: TICAGRELOR 90 MG TAB PO SCH (08:50)
[2022-11-12] MEDS ORDERED: ATORVASTATIN 40 MG TAB PO SCH (09:00)
[2022-11-12] MEDS ORDERED: ASPIRIN 81 MG ECTAB PO SCH (09:00)
[2022-11-12] MEDS ORDERED: allopurinoL 100 MG TAB PO SCH (09:00)
[2022-11-12] MEDS ORDERED: PANTOprazole 40 MG TAB PO SCH (09:00)
[2022-11-12] MEDS ORDERED: CETIRIZINE HCL 10 MG TABLET PO SCH (09:00)
[2022-11-12] MEDS ORDERED: MIDAZOLAM HCL 1 MG/ML 2ML VIAL ONE (11:36)
[2022-11-12] MEDS ORDERED: niCARdipine HCL INJ 2.5 MG/ML 10 ML AMP ONE (11:37)
[2022-11-12] MEDS ORDERED: NITROGLYCERIN/D5W 100MCG/ML 20ML SYR ONE (11:37)
[2022-11-12] MEDS ORDERED: HEPARIN (PORCINE) 1000 UNIT/ML 10 ML (CATH LAB USE ONLY) ONE ×2 (11:37→12:53)
[2022-11-12] MEDS ORDERED: fentaNYL citrate PF 100 MCG/2 ML VIAL ONE (11:37)
--- NOTE | 2022-11-12 12:07 | Cardiology Consultation ---
Date of Consultation November 12, 2022 Assessment & Plan (1) Coronary artery disease: Presentation consistent with high risk ACS and recommend further evaluation with repeat cardiac catheterization. Discussed procedure with patient and his significant other and they are willing to proceed. Recommendations pending findings of coronary angiography. History of Present Illness Attending Physician: Mike Romero History of Present Illness Mr. Browne is a very pleasant 57-year-old male with a history of type 2 DM (A1c 6.8), multivessel coronary artery disease post prior PCI to distal RCA and PDA here with ACS. Patient previously underwent PCI to RCA with 2 MAYRA 03/2022. Had residual severe proximal circumflex disease and OM1 AUTOMATIC CHIEF. Initially postprocedure did well, states was walking up to 3 to 5 miles before anginal symptoms. Over the last few months has had angina with less and less activity. More recently the last 5 days now with recurrent chest pain with just walking across room. Symptoms like what he had prior to stents and relieved with rest. Denies any chest pain at rest. Presenting ECG unchanged. HS TropI minimally elevated at >100. Repeat echocardiogram again shows inferior/inferolateral wall motion abnormality with unchanged LV function. Allergies Allergy/AdvReac Type Severity Reaction Status Date / Time amoxicillin Allergy Mild rash, hives Verified 11/11/22 12:05 Penicillins Allergy Mild rash, hives Verified 11/11/22 12:05 lisinopril AdvReac Mild cough Verified 11/11/22 14:25 Home Medications Medication Instructions Recorded Confirmed Type mv-min-vit C-ascorb 1.7 mg PO DAILY 12/18/18 11/11/22 History Nv-Zvd-Ecj-herb #124 333 mg-1.7 mg chewable tablet (Airborne (ascorbate sodium)) CPAP Machine #1 ea 08/06/21 07/17/22 Rx blood sugar diagnostic (OneTouch #50 ea 03/26/22 07/17/22 Rx Verio test strips) blood-glucose meter (OneTouch #1 ea 03/26/22 07/17/22 Rx Verio Meter) lancets 33 gauge (OneTouch Delica #100 ea 03/26/22 07/17/22 Rx Lancets) aspirin 81 mg tablet,delayed 81 mg PO QAM #90 tabs 04/01/22 11/11/22 Rx release blood pressure test kit-large #1 ea 04/01/22 07/17/22 Rx blood pressure kit-extra large #1 ea 04/03/22 07/17/22 Rx colchicine (gout) 0.6 mg tablet 0.6 mg PO BID PRN gout 06/22/22 11/11/22 History cetirizine 10 mg tablet 10 mg PO QAM #90 tabs 09/04/22 11/11/22 Rx atorvastatin 40 mg tablet 40 mg PO QAM #90 tabs 09/30/22 11/11/22 Rx metoprolol succinate 50 mg 50 mg PO PM #90 tabs 10/09/22 11/11/22 Rx tablet,extended release 24 hr allopurinol 100 mg tablet 200 mg PO QAM 11/11/22 11/11/22 History empagliflozin 10 mg tablet 10 mg PO HS 11/11/22 11/11/22 History (Jardiance) isosorbide mononitrate 30 mg 30 mg PO PM 11/11/22 11/11/22 History tablet,extended release 24 hr losartan 100 mg tablet 100 mg PO QAM 11/11/22 11/11/22 History metformin 500 mg tablet,extended 500 mg PO QAM 11/11/22 11/11/22 History release 24 hr omeprazole 20 mg capsule,delayed 20 mg PO QAM 11/11/22 11/11/22 History release Patient History Medical History (Updated 11/11/22 @ 13:49 by Adriana Barbosa MD) BPH (benign prostatic hyperplasia) Coronary artery disease DM2 (diabetes mellitus, type 2) Genitofemoral neuralgia of left side GERD (gastroesophageal reflux disease) controlled Gout History of alcohol abuse History of non-ST elevation myocardial infarction (NSTEMI) March 2022 Mediastinitis KONG (nonalcoholic steatohepatitis) Prostatitis Unstable angina Surgical History History of arthroscopy of left knee History of bilateral inguinal hernia repair History of colonoscopy History of difficult intubation Left knee scope, LMM, debridement, loose body removal: 10/31/17: Grade 2 view, Glidescope#4, ETT 7.5 at [facility] History of umbilical hernia repair History of wisdom tooth extraction Status post correction of deviated nasal septum Stented coronary artery PCI of the distal RCA and PDA with 2 MAYRA Family History Father Cancer Mother FH: kidney cancer Heart disease Family history of diabetes mellitus Other No family history of adverse response to anesthesia Social History Smoking Status: Never smoker Second Hand Exposure: No; Do You Dip or Chew Tobacco: No; Hx Alcohol Use: No Hx Substance Use: No Preferred Language: Bulgarian Communication Ability: Effective Visual Impairment: No Limitations Hearing Ability: Normal Director Industrial Required: No Beliefs That Will Affect Care: None marital status: Single Current Living Situation: Significant Other Current Living Situation Comment: Lives with mom current occupational status: disabled current occupation: [employer] Other Information That Helps Us Care for You: No Feels Safe at Home: Yes Safety Concerns: Feels Safe At This Time Assistive Devices: None Assistive Devices Comment: Home CPAP with patient Physical Exam Physical Exam: General: Comfortable HEENT: Sclerae anicteric Lungs: Clear to auscultation bilaterally, no crackles or wheezes Cardiac: Regular rate and rhythm, no murmurs. Vascular: 2+ radial, DP pulses. No bruits Abdomen: Soft, nontender Extremities: Well perfused, no peripheral edema Neuro: Nonfocal Psych: Alert orient x3, normal affect and mood Results & Data Vital Signs (Past 12 Hours) Vital Signs Temp Pulse Pulse Resp BP Pulse Ox O2 Del Method 11/12/22 09:00 82 11/12/22 07:54 97.5 F L 77 18 132/86 93 Room Air 11/12/22 04:28 97.9 F 79 18 127/75 97 BiPAP PG Care Time/CCT Total # of Minutes Spent Total Time Spent with Patient: Total time spent is greater than 50% in coordination of care (as documented) at patient's floor/unit and/or counseling patient: Coding Level of Care Code 00900 IN/OBS CONSULT LVL 4,60M Diagnoses Coronary artery disease I25.10
--- NOTE | 2022-11-12 12:09 | Pre Anesthesia Assessment ---
Date of Service November 12, 2022 Pre Sedation Assessment Vital Signs Temp Pulse Pulse Resp BP BP Pulse Ox 11/12/22 09:00 82 11/12/22 07:54 97.5 F L 77 18 132/86 93 11/12/22 04:28 97.9 F 79 18 127/75 97 11/11/22 23:59 98.4 F 78 18 100/62 96 11/11/22 23:54 84 11/11/22 20:01 97.7 F 90 18 132/77 95 11/11/22 19:32 85 11/11/22 17:37 97.9 F 83 15 137/82 95 11/11/22 15:27 81 11/11/22 14:37 83 15 116/91 95 11/11/22 12:30 84 20 120/99 97 11/11/22 12:40 79 O2 Del Method 11/12/22 09:00 11/12/22 07:54 Room Air 11/12/22 04:28 BiPAP 11/11/22 23:59 CPAP 11/11/22 23:54 11/11/22 20:01 Room Air 11/11/22 19:32 11/11/22 17:37 Room Air 11/11/22 15:27 11/11/22 14:37 Room Air 11/11/22 12:30 Room Air 11/11/22 12:40 Cardiovascular RRR, no murmur, no edema Respiratory normal respiratory effort, lungs clear to auscultation Pre-Sedation Airway Assessment Smoking Status: Never smoker Hx Sleep Apnea: No Hx Difficult Intubation: No Short, Thick Neck: No Thyromental Distance: > or= 3.5 Finger Breadths ASA: ASA3 Procedure Planning Contraindications for Sedation: none Current Medications Reviewed: Yes Notes The planned sedation has been discussed with the patient. Informed Consent was obtained. I have identified the patient, determined the appropriateness of sedation and have assessed the patient immediately prior to the procedure. All medicine(s) and interventions are by my order.
[2022-11-12] MEDS ORDERED: NITROGLYCERIN 2% OINTMENT 30GM TUBE EXT ONE (13:38)
--- NOTE | 2022-11-12 13:39 | Post Anesthesia Assessment ---
Date of Service November 12, 2022 Post Sedation Assessment Vital Signs Temp Pulse Pulse Resp BP BP Pulse Ox 11/12/22 13:20 97 H 16 168/99 H 95 11/12/22 11:20 76 18 156/92 H 98 11/12/22 09:00 82 11/12/22 07:54 97.5 F L 77 18 132/86 93 11/12/22 04:28 97.9 F 79 18 127/75 97 11/11/22 23:59 98.4 F 78 18 100/62 96 11/11/22 23:54 84 11/11/22 20:01 97.7 F 90 18 132/77 95 11/11/22 19:32 85 11/11/22 17:37 97.9 F 83 15 137/82 95 11/11/22 15:27 81 11/11/22 14:37 83 15 116/91 95 O2 Del Method 11/12/22 13:20 Room Air 11/12/22 11:20 Room Air 11/12/22 09:00 11/12/22 07:54 Room Air 11/12/22 04:28 BiPAP 11/11/22 23:59 CPAP 11/11/22 23:54 11/11/22 20:01 Room Air 11/11/22 19:32 11/11/22 17:37 Room Air 11/11/22 15:27 11/11/22 14:37 Room Air Recovery Score Activity: Moves 4 extremities Respiration: Deep Breath/Cough Circulation: +/-20% PreAnes Value Consciousness: Fully Awake Oxygen Saturation: > 92% On Room Air Post Anesthesia Score: 10 Discharge Sedation Level of Care: Fast Track Phase II Post Sedation Plan On clinical assessment, the patient appears to have tolerated the sedation without complications. Patient is recovering as anticipated. Patient will continue to be monitored by nursing and may be discharged when se dation discharge criteria are met per below protocol. Upon Completions of procedure up to 15 minutes continue every 5 minute vital signs and the P.A.R. score; then discharge to a Phase I or Fast Track to Phase II per the following guidelines: * Discharge Patient to appropriate Phase II area if PAR is 8 or greater or return to pre- procedure baseline. The post - procedure orders will be as directed. * If PAR score is less than 8 or not return to pre-procedure baseline then patient will follow Phase I monitoring till PAR is reached for Phase II. The Phase I may be done in procedure room or may call to secure a Phase I area. * If naloxone or flumazenil are used for reversal, hold in Phase I for continued monitoring from when last reversal dose was given for a minimum of 60 minutes or longer pending the nurse and/or physician discretion of patient condition before discharge to Phase II. Please call the Sedation Physician to re-evaluate and complete post-note for discharge to Phase II area. Do NOT discharge from procedure sedation or Phase 1 until post- sedation evaluation note is complete by procedure /sedation MD Sedation Discharge Instructions to be given to the patient at discharge to home.
[2022-11-12] MEDS ORDERED: HEPARIN 25000 UNIT/500 ML D5W IV ONE (13:40)
[2022-11-12] MEDS ORDERED: Heparin IV Adult Wt-Based Standard *NO* Bolus Protocol IV STA (13:45)
[2022-11-12] MEDS ORDERED: SODIUM CHLORIDE 0.9% 1,000 ML IV SCH (13:45)
--- NOTE | 2022-11-12 13:48 | Cardiac Catheterization ---
[facility] Data: Machine Steak Tenderizer Cardiac Status Clinical evaluation leading to the procedure CAD Presenation: Non STEMI Anginal Classification: CCS III Diagnostic Physicians Name: Jarred Charles MD Closure Device Recommendations: Medical Therapy and/or Counseling Cardiac Cath Procedure Full Procedure Date November 12, 2022 Pre-Procedure Diagnosis Pre-Procedure Diagnosis: Non STEMI and CAD AUC Score AUC Score: 8 Post-Procedure Diagnosis Post-Procedure Diagnosis: Severe CAD and Normal Intracardiac Pressures Procedure(s) Performed Procedure(s) Performed: Coronary Angiography, Left Heart Cath and Fractional Flow [place] Safety Supervisor Jarred Charles MD Head Screen Worker(s) Diebler Estimated Blood Loss Estimated Blood Loss: 10 Medication(s) Medication(s): Fentanyl, Heparin, Lidocaine 1%, Nicardipine, Nitroglycerin and Versed Summary of Findings Indication: NSTEMI. History of CAD post prior PCI with 2 MAYRA to distal RCA and the PDA Access: 6 Fr right radial artery Catheters: [place], EBU 3.5 guide, AR-1 guide Findings: LM -normal caliber, mild diffuse disease LAD -medium caliber vessel, calcified, diffuse 30 to 40% proximal to mid disease, focal 50 to 60% stenosis at takeoff of S2/S3. Remainder of LAD without significant disease and terminates prior to apex. Large bifurcating D1 with 40% proximal, 60% stenosis in medial branch at bifurcation. Circumflex -medium caliber, 80 to 90% mid segment stenosis. High medium OM1 without significant disease. Medium OM 2 100% occluded ostium fills retrograde via left to left collaterals. RCA -dominant, large caliber, 20% ostial, mid segment luminal irregularities, distal RCA stent patent followed by 98% hazy stenosis in small gap between PDA stent. PDA stent widely patent. Jailed right posterior AV branch 80% ostial and diffuse disease including 95% stenosis prior to takeoff of distal-most PLB. IFR procedure: -Left main cannulated with EBU 3.5 guide -Lemus angled FFR wire navigated into distal LAD -IFR 0.89 -Coronary angiography revealed no apparent complications post wire removal LVEDP -8 Attempted PCI of RCA: RCA cannulated with AR-1 guide, additional support with telescope catheter Physician Pediatrician 50 wire navigated across stents and distal stenosis with some difficulty Unable to pass 2.5, 2.0 and 1.5 balloons across distal aspect of initial stent Catheters/wires removed and no apparent complications Arterial Closure: TR band Summary: 1. Multivessel coronary artery disease -98% complex distal RCA lesion involving small gap between 2 prior stents (unable to pass balloon across lesion) 80% ostial jailed right posterior AV branch 80% mid circumflex 100% OM 2 RN PLACEMENT with left to left collaterals Diffuse proximal to mid LAD up to 60% (borderline obstructive by IFR 0.89) D1 with 60% stenosis at bifurcation 2. Normal intracardiac filling pressure Recommendations: With multivessel disease and diabetes recommend referral to surgery center for consideration of CABG Hemodynamics Rest Ao:: 113/76/93 Final Ao: 127/70/99 LV: 119/8 Recommendations Recommendations: Medical Therapy and/or Counseling Specimens Specimens: None Radiation Exposure (mGy) 3627 Contrast (mls) 130 Anesthesia Moderate 6984-5702 Procedural Complication(s) None Disposition PCU I attest to the content of the Intraoperative Record and any orders documented therein. Any exceptions are noted below. [facility] Card Cath Procedure Codes Cardiac Catheterization Procedure 1: Cardiovascular Cath Procedures: 43126 Coronaries and LHC (+/-LV) Procedure 2: Cardiovascular Cath Procedures: 57305 (Doppler) Pressure Wire Moderate Sedation Procedure 1: Sedation/Anesthesia: 89350 Mod Sedation by the same physician;Init15 Min Child Age 5 & Up Procedure 2: Sedation/Anesthesia: 61679 Mod Sedation by the same physician; Ea Ad [id number] Minutes PG Care Time/CCT Total # of Minutes Spent Total Time Spent with Patient: Total time spent is greater than 50% in coordination of care (as documented) at patient's floor/unit and/or counseling patient:
[2022-11-12] MEDS ORDERED: Heparin IV Adult Wt-Based Standard *NO* Bolus Protocol IV SCH (13:55)
[2022-11-12] MEDS ORDERED: HEPARIN SODIUM/DEXTROSE 25,000 UNITS/500 ML BAG IV SCH (14:00)
[2022-11-12] MEDS: NITROGLYCERIN 2% OINTMENT 30GM TUBE EXT SCH ×2 (14:30→17:56)
--- NOTE | 2022-11-12 15:43 | Discharge Summary ---
Date of Service November 12, 2022 Admission HPI Per Admitting Provider Kavin Browne is a 57 year old male who presents to the ER with chest pain. He reports exertional substernal chest pain radiating to shoulders starting 5 days ago getting progressively worse on less exertion with longest pain lasting for 10 minutes. Now having pain with movement of only 10 feet. Burning sensation. Current severity 1/10, at worst 10/10. Associated nausea, diaphoresis and shortness of breath. Feels like his previous NSTEMI in March. He denies any acid taste in his mouth of relationship to food. He is compliant with all his medication except he missed his morning medication today. Last cardiac catheterization was in March 14 for NSTEMI with two culprit lesions stented; 1) Distal RCA, bifurcation into proximal PDA and posterior lateral branch 2)Ostial to proximal PDA. He had residual severe multivessel coronary artery disease. Apparent chronic total occlusion of the large OM branch of the circumflex and complex disease of the distal RCA, PDA, and posterolateral branch. Suboptimal angiographic results in the distal RCA in the short unstented intervening segment. He had been doing well from a cardiac standpoint without chest pain or shortness of breath up until the last 5 days. Discharge Data Allergies Allergy/AdvReac Type Severity Reaction Status Date / Time amoxicillin Allergy Mild rash, hives Verified 11/11/22 12:05 Penicillins Allergy Mild rash, hives Verified 11/11/22 12:05 lisinopril AdvReac Mild cough Verified 11/11/22 14:25 Consultations 11/11/22 13:47 ED Decision to Admit Stat 11/11/22 13:55 Consult Cardiology Routine 11/12/22 15:30 Burn CD for patient Stat Procedures Performed Operation Date: 11/12/22 11:00 Actual Procedures s Cineradiography w/Routine Exam - Shree Charles MD p Cath, Left with Cors and Vent - Shree Charles MD Ordered Studies 11/12/22 09:20 CL Cath Imgs for PACS use only Routine Hospital Course (1) Chest pain: Suspected unstable angina given progressively worsening exertional chest pain with known coronary artery disease which feels like his prior MS. Missed his morning medications therefore will prescribe these now. Will defer heparin IV drip unless significant troponin elevation ASA, Brillinta, metoprolol succinate, losartan, ISMN, atorvastatin Consult cardiology, NPO after midnight for cardiac catheterization tomorrow. (2) Sleep apnea: CPAP HS (3) Diabetes mellitus, type 2: Hemoglobin A1C 6.8 in July Hold metformin for cardiac cath Continue Jardiance 10mg HS Novolog: --Goal BSG Range: Low 110 mg/dL, High 140 mg/dL --Correction Factor: 25 mg/dL/unit --Carbohydrate ratio = 15 g/unit --BSGs ACHS if eating, q6h if npo (4) Gout: Chronic, not acute Continue allopurinol (5) Hypertension: Continue losartan, metoprolol succinate and ISMN (6) BPH (benign prostatic hyperplasia): On no treatment for this, monitor for symptoms/sign urine retention (7) History of non-ST elevation myocardial infarction (NSTEMI): (8) Coronary artery disease: Plan VTE Prophylaxis - deferred pending need for heparin drip Diet - heart healthy, T2DM, NPO after midnight Disposition - admit to PCU Discharge Plan Discharge Items Reason For Visit: UNSTABLE ANGINA Follow-up/Referrals: Jarred Donis MD [Primary Care Provider] - Medications and DC Order Prescriptions: No Action (DME) CPAP Machine Misc See Rx Instructions .Route Qty: 1 0RF Rx Instructions: As directed (DME) lancets [OneTouch Delica Lancets] 33 gauge misc See Rx Instructions .Route Qty: 100 5RF Rx Instructions: once daily and PRN (DME) blood-glucose meter [OneTouch Verio Meter] Misc See Rx Instructions .Route Qty: 1 0RF Rx Instructions: once daily PRN (DME) OneTouch Verio test strips Strip See Rx Instructions .Route Qty: 50 5RF Rx Instructions: once daily and PRN (max 3 tests/day) (DME) blood pressure kit-extra large Kit See Rx Instructions .Route Qty: 1 0RF Rx Instructions: As directed. Manual blood pressure cuff cetirizine 10 mg tablet 10 mg PO QAM Qty: 90 3RF atorvastatin 40 mg tablet 40 mg PO QAM Qty: 90 3RF Brilinta 90 mg tablet 90 mg PO BID Qty: 90 3RF metoprolol succinate 50 mg tablet extended release 24 hr 50 mg PO PM Qty: 90 3RF (DME) blood pressure test kit-large Kit See Rx Instructions .Route Qty: 1 0RF Rx Instructions: As directed aspirin 81 mg tablet,delayed release (DR/EC) 81 mg PO QAM Qty: 90 3RF Airborne (ascorbate sodium) 333-1.7 mg Tablet,Chewable 1.7 mg PO DAILY colchicine (gout) 0.6 mg tablet 0.6 mg PO BID PRN (Reason: gout) isosorbide mononitrate 30 mg tablet extended release 24 hr 30 mg PO PM allopurinol 100 mg tablet 200 mg PO QAM omeprazole 20 mg capsule,delayed release(DR/EC) 20 mg PO QAM losartan 100 mg tablet 100 mg PO QAM metformin 500 mg tablet extended release 24 hr 500 mg PO QAM Jardiance 10 mg tablet 10 mg PO HS Admission Data Admit Date/Time: 11/11/22 13:55 Attending Provider: Mike Romero Admit Provider: Agus Hernandez Primary Care Provider: Jarred Donis Other Providers: Etienne Torres ; Agus Hernandez Coding Diagnoses Chest pain R07.9 Sleep apnea G47.30 Diabetes mellitus, type 2 E11.9 Gout M10.9 Hypertension I10 BPH (benign prostatic hyperplasia) N40.0 History of non-ST elevation myocardial infarction (NSTEMI) I25.2 Coronary artery disease I25.10
--- NOTE | 2022-11-12 22:38 | XCELERA ---
[id number] \\[id number]
== END 2022-11-12 20:05 | disposition short-term general hospital (02) ==
LOC: EDINP 10:22 → ED 10:22 → SUATTDRO 13:55 → 4W 14:58